=== PATIENT | female | born 1945 | race African-American/Black ===

== ENCOUNTER 2017-07-13 18:46 | Inpatient (IN) | payer MEDICARE, MEDICAID ==
[2017-07-13 20:25] LABS: Bilirubin Negative (Negative); Blood, Urine Moderate (Negative); Glucose, Urine (Dipstick) Negative (Negative); Ketone, Urine Negative (Negative); Nitrite Negative (Negative); Protein, Urine (Dipstick) Negative (Neg-Trace)
[2017-07-13 20:28] LABS: Bacteria/HPF 4+ HPF (None Seen); Hyaline Casts/LPF 0-3 HYALINE CAST LPF (0-3 Hyaline); RBC/HPF 0-3 HPF (0-3); Squamous Epithelial 0-3 HPF (0-3)
--- NOTE | 2017-07-13 20:48 | RAD ---
CHEST ONE VIEW 07/13/17 HISTORY: Chest pain. FINDINGS: The cardiac silhouette is magnified by projection. Pulmonary vasculature is upper limits of normal. M ediastinum is midline with aortic calcification. There is no lobar consolidation, or evidence of pneu mothorax. IMPRESSION: Mild pulmonary vascular congestion. POS: [facility]
[2017-07-13 21:04] LABS: #Basophils 0.1 thou/uL (0.0-0.2); #Eosinphils 0.1 thou/uL (0.0-0.7); #Lymphocytes 1.3 thou/uL (1.20-3.40); #Monocytes 1.2 thou/uL (0.11-0.59); #Neutrophils 7.4 thou/uL (1.40-6.50); %Basophils 0.6 % (0.0-1.0); %Eosinophils 1.2 % (0.0-10.0); %Lymphocytes 13.2 % (21.0-51.0); %Monocytes 11.4 % (0.0-10.0); Hematocrit 26.8 % (36.0-47.0); Mean Platelet Volume 6.5 fL (7.4-10.4); Red Blood Cell (RBC) Count 2.64 mill/uL (4.20-5.40); White Blood Cell (WBC) Count 10.1 thou/uL (4.8-10.8)
[2017-07-13 21:14] LABS: Lactic Acid - Sepsis 2.3 mmol/L (0.5-2.2); PTT 24.2 SEC (22.9-36.1); Prothrombin Time 14.3 SEC (12.0-14.7)
[2017-07-13 21:19] LABS: ALT (SGPT) 13 U/L (8-55); AST (SGOT) 26 U/L (5-34); Alkaline Phosphatase 100 U/L (40-150); Anion Gap 15 mmol/L (10-20); Bilirubin, Total 0.7 mg/dL (0.2-1.2); CK (CPK) 90 U/L (29-168); Calc. Creatinine Clearance 0 mL/min (70-130); Carbon Dioxide 28 mmol/L (23-31); Chloride 95 mmol/L (98-107); Estimated GFR-MDRD 17; Globulin 3.9 g/dL (2.4-3.5); Lipase 19 U/L (8-78); Magnesium 1.9 mg/dL (1.6-2.6); Protein, Total 6.9 g/dL (6.0-8.3)
[2017-07-13 21:23] LABS: Troponin I 0.039 ng/mL (< 0.028)
[2017-07-13 21:32] LABS: BUN (Urea Nitrogen) 156 mg/dL (9.8-20.1)
[2017-07-13] MEDS ORDERED: Naloxone HCl 2 mg/2 ml Syringe ONE (21:36)
[2017-07-13] MEDS ORDERED: Vancomycin HCl 1.5 GM in Sodium Chloride 0.9% 250 ML 300 ML IVPB SCH (23:00)
[2017-07-13] MEDS ORDERED: cefTRIAXone\\ROCEPHIN 2 GM in Sodium Chloride 0.9% 100 ML IVPB SCH (23:00)
[2017-07-13] MEDS ORDERED: Sodium Bicarb 50 MEQ/50 ML Abboject 8.4% SYRINGE ONE (23:14)
[2017-07-13] MEDS ORDERED: Dextrose 50% Abboject 50 ML SYRINGE ONE (23:14)
[2017-07-13] MEDS ORDERED: Insulin Regular 300 UNITS/3 ML VIAL ONE (23:14)
[2017-07-13 23:59] LABS: Troponin I 0.049 ng/mL (< 0.028)
[2017-07-14] MEDS ORDERED: Ondansetron HCl/PF 4 MG/2 ML Vial IVP PRN ×2 (02:09→02:22)
[2017-07-14] MEDS ORDERED: Ondansetron ODT 4 MG TAB SL PRN (02:09)
[2017-07-14] MEDS ORDERED: Sodium Chloride 0.9% 1,000 ML IV SCH ×4 (02:22→15:15)
[2017-07-14] MEDS ORDERED: cloNIDine 0.1 MG TAB PO PRN (02:22)
[2017-07-14] MEDS ORDERED: Nitroglycerin 0.4 MG TAB (25 Tab Bottle) SL PRN (02:22)
[2017-07-14] MEDS ORDERED: Benzonatate 100 MG CAP PO PRN (02:22)
[2017-07-14] MEDS ORDERED: Milk Of Magnesia 30 ML UDCUP PO PRN (02:22)
[2017-07-14] MEDS ORDERED: Diabetic Tussin 200 MG/10 ML UDCUP PO PRN (02:22)
[2017-07-14] MEDS ORDERED: hydrALAZINE 20 MG/ML VIAL SLOW IVP PRN (02:22)
[2017-07-14] MEDS ORDERED: Bisacodyl 5 MG TAB PO PRN (02:22)
[2017-07-14] MEDS ORDERED: Calcium Carbonate 500 MG ChewTAB PO PRN (02:22)
[2017-07-14] MEDS ORDERED: Bisacodyl 10 MG SUPP PR PRN (02:22)
[2017-07-14] MEDS ORDERED: Mag-Al 1200 mg/1200 mg/30 ML UDCUP PO PRN (02:22)
[2017-07-14] MEDS ORDERED: Acetaminophen 650 MG Suppository PR PRN (02:22)
[2017-07-14] MEDS ORDERED: Loratadine 10 MG TAB PO PRN (02:22)
[2017-07-14] MEDS ORDERED: Senokot 8.6 MG TAB PO PRN (02:22)
[2017-07-14] MEDS: traMADol HCl 50 MG TAB PO PRN ×3 (02:56→20:59)
[2017-07-14 02:58] LABS: Troponin I 0.036 ng/mL (< 0.028)
[2017-07-14] MEDS ORDERED: Sodium Chloride 0.9% 500 ML IVPB SCH (03:00)
[2017-07-14 05:32] LABS: #Eosinphils 0.2 thou/uL (0.0-0.7); #Neutrophils 8.6 thou/uL (1.40-6.50); %Basophils 0.4 % (0.0-1.0); %Eosinophils 1.8 % (0.0-10.0); %Lymphocytes 9.2 % (21.0-51.0); %Monocytes 8.9 % (0.0-10.0); Hematocrit 29.7 % (36.0-47.0); Mean Platelet Volume 6.6 fL (7.4-10.4); Red Blood Cell (RBC) Count 2.92 mill/uL (4.20-5.40); White Blood Cell (WBC) Count 10.8 thou/uL (4.8-10.8)
[2017-07-14 05:35] LABS: Anion Gap 22 mmol/L (10-20); Calc. Creatinine Clearance 41 mL/min (70-130); Carbon Dioxide 22 mmol/L (23-31); Chloride 102 mmol/L (98-107); Estimated GFR-MDRD 21
[2017-07-14 05:48] LABS: BUN (Urea Nitrogen) 149 mg/dL (9.8-20.1)
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
[2017-07-14] MEDS: Famotidine/PF 20 mg/2ml Vial SLOW IVP SCH ×2 (08:19→20:59)
[2017-07-14] MEDS: Heparin 5,000 UNITS/ML VIAL SC SCH ×2 (08:20→20:59)
[2017-07-14] MEDS ORDERED: Vancomycin HCl 1.5 GM, Admixture Fee 1 EACH in Sodium Chloride 0.9% 250 ML 300 ML IVPB SCH (08:30)
[2017-07-14] MEDS ORDERED: Piperacillin/Tazobactam 3.375 GM, Admixture Fee 1 EACH in Sodium Chloride 0.9% 100 ML IVPB SCH (12:00)
--- NOTE | 2017-07-14 13:35 | PDOC.PN ---
- Subjective Encounter Start Date: 07/14/17 Encounter Start Time: 13:33 more alert no n/v has low bp no f/c - Objective Resuscitation Status: Resuscitation Status DNR:Do Not Resuscitate MAR Reviewed: Yes Vital Signs & Weight: Vital Signs (12 hours) Temp Pulse Resp BP Pulse Ox 07/14/17 12:14 100.1 F H 88 18 97 07/14/17 11:00 100.1 F H 88 18 94/44 L 96 07/14/17 08:20 99.3 F 102 H 20 92 L 07/14/17 07:16 99.3 F 102 H 20 103/73 99 07/14/17 03:44 98.3 F 91 20 89/50 L 98 07/14/17 01:37 98.3 F 82 22 H 100 Weight Admit Weight 299 lb Weight 299 lb Most Recent Monitor Data Heart Rate from ECG 86 I&O: 07/13/17 07/14/17 07/15/17 06:59 06:59 06:59 Intake Total 350 Output Total 0 1150 Balance 350 -1150 Result Diagrams: 07/14/17 04:44 07/14/17 02:27 Additional Labs: Accuchecks 07/13/17 23:23 POC Glucose 114 H Phys Exam - Physical Examination Constitutional: NAD HEENT: PERRLA Neck: no JVD Respiratory: no wheezing Cardiovascular: no significant murmur Gastrointestinal: no distention Musculoskeletal: pulses present Neurological: normal sensation Psychiatric: A&O x 3 Deviation from normal: excoriations noted. Dx/Plan (1) Sepsis Code(s): A41.9 - SEPSIS, UNSPECIFIED ORGANISM Status: Acute (2) UTI (urinary tract infection) Status: Acute (3) Decubital ulcer Code(s): L89.90 - PRESSURE ULCER OF UNSPECIFIED SITE, UNSPECIFIED STAGE Status : Acute (4) History of CVA with residual deficit Code(s): I69.30 - UNSPECIFIED SEQUELAE OF CEREBRAL INFARCTION Status: Chronic (5) Morbid obesity with BMI of 50.0-59.9, adult Code(s): E66.01 - MORBID (SEVERE) OBESITY DUE TO EXCESS CALORIES; Z68.43 - BODY MASS INDEX (BMI) 50-59.9 , ADULT Status: Chronic - Plan * consult dr montanez * cont abx * wound care * ivf * transfer to [facility] * dnr * recently revoked hospice
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
[2017-07-14] MEDS: Sodium Chloride 0.45% 1,000 ML IV SCH (16:38)
[2017-07-14 16:44] LABS: Lactic Acid - Sepsis 0.9 mmol/L (0.5-2.2)
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
[2017-07-14] MEDS ORDERED: cefTRIAXone\\ROCEPHIN 1 GM in Syringe 10 ML IVPB SCH (23:00)
--- NOTE | 2017-07-14 23:54 | CON ---
DATE OF CONSULTATION: 07/14/2017 CONSULTING PHYSICIAN: Darryl Boo M.D. REQUESTING PHYSICIAN: Jeanette Vargas MD REASON FOR CONSULTATION: Acute kidney injury. IMPRESSION: 1. Acute kidney injury. This is likely hemodynamically mediated in the context of poor p.o. intake while continuing the use of YOLI inhibitor as well as diuretics. This acute kidney injury is likely c ompounded by cytokine-mediated injury in the context of possible bacteremia/sepsis. 2. Hyperkalemia. This is likely due to reduced GFR in the face of continued use of YOLI inhibitor. PLAN: 1. Intravascular repletion with IV fluids. 2. Hopefully, the improvement in the renal, but the patient will help to address the hyperkalemia. 3. Renally dose all medications per low GFR and avoid potentially nephrotoxic agents. 4. No emergent indication for dialytic intervention. However, should this progress to full blown ac phyllis tubular necrosis, this modality of treatment might be considered. The patient seems not to be a great candidate. 5. Further management will to be dependent on the clinical course. HISTORY OF PRESENT ILLNESS: History is that of a 72-year-old female patient who has had recurrent ac phyllis kidney injury in the past, every time hemodynamically mediated. The patient represented here wit h elevated creatinine above 3 when patient's baseline creatinine is about 1. The patient also noted with hyperkalemia and labile hemodynamics. The patient has not eaten anything at all the day before presentation. As a result of the deteriorating renal function, decision has been taken to involve Re nal in the management of this case. PAST MEDICAL HISTORY: Significant for recurrent acute kidney injury, CVA with right-sided weakness, atrial fibrillation, hepatitis C, congestive heart failure, morbid obesity, chronic respiratory failu re, obstructive sleep apnea, history of COPD. MEDICATIONS: Reviewed as documented on [employer]. ALLERGIES: No known drug allergies. FAMILY HISTORY: None significantly related to the presenting illness. SOCIAL HISTORY: The patient lives at home. Denies alcohol, tobacco or illicit drug use. REVIEW OF SYSTEMS: As documented in the body of the history. The other systems reviewed were found not to be significantly related to the presenting illness. PHYSICAL EXAMINATION: GENERAL: The patient was found to be ill-looking, noted with the following vital signs. VITAL SIGNS: Blood pressure 104/64, which was down to 94/62, saturations on 96%. HEENT: Unremarkable. CARDIOVASCULAR SYSTEM: First and second heart sounds were heard. RESPIRATORY SYSTEM: Clear to auscultation anteriorly. DIGESTIVE SYSTEM: Revealed an obese abdomen. EXTREMITIES: Showed no peripheral edema. SKIN: Shows some multiple decubitus ulcers as well as rashes. NEUROLOGIC: Alert, no new lateralizing signs. LYMPHATICS: No peripheral lymphadenopathy. SUMMARY: A 72-year-old female patient who presented here with acute kidney injury likely in the cont ext of hemodynamically mediated injury as well as cytokine-mediated injury. Thank you for this consultation. We will follow with you.
[2017-07-15] MEDS: Sodium Chloride 0.45% 1,000 ML IV SCH ×2 (00:47→12:35)
[2017-07-15 04:14] LABS: Anion Gap 11 mmol/L (10-20); BUN (Urea Nitrogen) 95 mg/dL (9.8-20.1); Calc. Creatinine Clearance 78 mL/min (70-130); Carbon Dioxide 29 mmol/L (23-31); Chloride 107 mmol/L (98-107); Estimated GFR-MDRD 44
[2017-07-15] MEDS: Famotidine/PF 20 mg/2ml Vial SLOW IVP SCH ×2 (08:46→09:16)
[2017-07-15] MEDS: Heparin 5,000 UNITS/ML VIAL SC SCH ×2 (08:46→20:54)
[2017-07-15] MEDS ORDERED: Vancomycin HCl 1.5 GM in Sodium Chloride 0.9% 250 ML 300 ML IVPB SCH (09:00)
[2017-07-15 11:37] VITALS: BMI 55.0
--- NOTE | 2017-07-15 12:53 | PDOC.PN ---
- Subjective Encounter Start Date: 07/15/17 Encounter Start Time: 12:50 doing much better no n/v no f/c speech rec's- liq diet - Objective Resuscitation Status: Resuscitation Status DNR:Do Not Resuscitate MAR Reviewed: Yes Vital Signs & Weight: Vital Signs (12 hours) Temp Pulse Resp Pulse Ox 07/15/17 12:00 99.0 F 07/15/17 08:00 99.3 F 96 17 100 07/15/17 04:00 98.2 F Weight Admit Weight 299 lb Weight 301 lb 1.6 oz Most Recent Monitor Data Heart Rate from ECG 103 NIBP 105/47 NIBP BP-Mean 71 Respiration from ECG 19 SpO2 100 I&O: 07/14/17 07/15/17 07/16/17 06:59 06:59 06:59 Intake Total 350 3436 1440 Output Total 0 3370 Balance 149 79 6054 Result Diagrams: 07/14/17 04:44 07/15/17 03:30 Phys Exam - Physical Examination Constitutional: NAD HEENT: PERRLA Neck: no JVD Respiratory: no wheezing Cardiovascular: no significant murmur Gastrointestinal: non-tender Musculoskeletal: pulses present Neurological: normal sensation Psychiatric: A&O x 3 Deviation from normal: excoriations noted, decubitus ulcer noted Dx/Plan (1) Sepsis Code(s): A41.9 - SEPSIS, UNSPECIFIED ORGANISM Status: Acute (2) UTI (urinary tract infection) Status: Acute (3) Decubital ulcer Code(s): L89.90 - PRESSURE ULCER OF UNSPECIFIED SITE, UNSPECIFIED STAGE Status : Acute (4) History of CVA with residual deficit Code(s): I69.30 - UNSPECIFIED SEQUELAE OF CEREBRAL INFARCTION Status: Chronic (5) Morbid obesity with BMI of 50.0-59.9, adult Code(s): E66.01 - MORBID (SEVERE) OBESITY DUE TO EXCESS CALORIES; Z68.43 - BODY MASS INDEX (BMI) 50-59.9 , ADULT Status: Chronic - Plan * lactic acidosis resolved * bld culture- enterococcus * uti- gnr * cont abx * id, pulm rec's appreciated
[2017-07-15] MEDS: traMADol HCl 50 MG TAB PO PRN ×2 (13:25→20:53)
[2017-07-15] MEDS: Piperacillin/Tazobactam 2.25 GM, Admixture Fee 1 EACH in Sodium Chloride 0.9% 100 ML IVPB SCH ×2 (14:28→20:52)
[2017-07-15] MEDS ORDERED: Sodium Chloride 0.45% 1,000 ML IV SCH (15:15)
--- NOTE | 2017-07-15 15:25 | PRG ---
DATE OF SERVICE: 07/15/2017 SERVICE: Pulmonary Medicine. INTERVAL HISTORY: The patient is doing fine from a respiratory standpoint. She is on room air. She has no specific complaints of difficulty breathing or chest discomfort. She has requirements for [facility]. Otherwise, there has been no interval change to her condition. PHYSICAL EXAMINATION: VITAL SIGNS: Afebrile with T-max of 99.3 over the past 24 hours. Pulse 105, blood pressure 141/52, respirations 21, and saturation 99% on room air. GENERAL: The patient is awake and alert, in no apparent distress. LUNGS: Excellent air entry. There is no prolonged expiratory phase. I do not appreciate no wheezin g. HEART: Normal rate and regular. ABDOMEN: Soft, nontender, nondistended, bowel sounds positive. MUSCULOSKELETAL: No cyanosis or clubbing. No pitting in the bilateral lower extremities. NEUROLOGIC: Grossly nonfocal. LABORATORY DATA: Creatinine has improved to 1.49. Basic metabolic profile is otherwise unremarkable . Her BUN has dramatically improved to 95. One out of two blood cultures growing Enterococcus faeca lis. Urine culture is growing a gram negative isabel. ASSESSMENT: 1. Acute kidney injury secondary to severe dehydration. 2. Metabolic encephalopathy, resolved. 3. Dehydration, severe. 4. Diarrhea. 5. Severe sepsis. 6. Urinary tract infection. 7. Bacteremia. PLAN: We will continue empiric antibiotics and maintenance IV fluids. I think she remains a little bit volume depleted. She is having frequent bowel movements. We will collect the sample and sent it for C. diff. From my perspective, she is stable for transition out of the ICU, but because of her [facility] nursing requirements, she will likely do best in the IMCU.
--- NOTE | 2017-07-15 23:52 | PRG ---
DATE OF SERVICE: 07/15/2017 SUBJECTIVE: The patient is seen and examined today, seems to be in some physical distress, noted wit h the following vital signs. OBJECTIVE: VITAL SIGNS: Afebrile with pulse of 105, blood pressure , respiratory rate 18, O2 saturation 98 %. HEENT: Unremarkable with moist oral mucosa. Neck is supple. No conjunctival injection or icterus. CARDIOVASCULAR: First and second heart sounds were heard. RESPIRATORY: Clear to auscultation. DIGESTIVE: Revealed an obese abdomen. EXTREMITIES: No peripheral edema. NEUROLOGIC: Alert and oriented. No lateralizing signs. LYMPHATICS: No peripheral lymphadenopathy. LABORATORY INVESTIGATIONS: Showed a creatinine down to 1.4. IMPRESSION: 1. Acute kidney injury which seems to have responded to fluid resuscitation. 2. Urinary tract infection. 3. Possible sepsis. PLAN: 1. The patient seems to have been intravascularly replete. Therefore, I would discontinue IV fluid infusion. 2. Continue p.o. intake. 3. Continue to renally dose all medications and avoid potentially nephrotoxic agents. 4. Further management to be dependent on the clinical course.
[2017-07-16] MEDS: Piperacillin/Tazobactam 2.25 GM, Admixture Fee 1 EACH in Sodium Chloride 0.9% 100 ML IVPB SCH ×4 (02:08→21:20)
[2017-07-16] MEDS: traMADol HCl 50 MG TAB PO PRN ×4 (04:19→22:59)
[2017-07-16 04:41] LABS: Anion Gap 12 mmol/L (10-20); BUN (Urea Nitrogen) 52 mg/dL (9.8-20.1); Calc. Creatinine Clearance 86 mL/min (70-130); Calcium 8.8 mg/dL (7.8-10.44); Carbon Dioxide 27 mmol/L (23-31); Chloride 109 mmol/L (98-107); Estimated GFR-MDRD 49
[2017-07-16] MEDS: Famotidine/PF 20 mg/2ml Vial SLOW IVP SCH (08:55)
[2017-07-16] MEDS: Heparin 5,000 UNITS/ML VIAL SC SCH ×2 (08:58→21:32)
--- NOTE | 2017-07-16 14:10 | PDOC.PN ---
- Subjective Encounter Start Date: 07/16/17 Encounter Start Time: 14:07 Ms. Araiza was seen today in follow-up for her admitting diagnoses, including encephalopathy. She is upset, and agitated, and wants to go home. She is so focused on getting repositioned in the bed, and moved to another room, closer to the nursing station, because she feels isolated, that she is unable to answer any questions pertaining to how she feels clinically. - Objective Resuscitation Status: Resuscitation Status DNR:Do Not Resuscitate MAR Reviewed: Yes Vital Signs & Weight: Vital Signs (12 hours) Temp Pulse Resp BP Pulse Ox 07/16/17 08:15 98.3 F 97 18 122/80 95 07/16/17 08:14 95 07/16/17 08:00 98.3 F 97 18 07/16/17 04:00 97.6 F 100 18 113/68 96 Weight Admit Weight 299 lb Weight 301 lb 1.6 oz Most Recent Monitor Data Heart Rate from ECG 116 NIBP 134/84 NIBP BP-Mean 100 Respiration from ECG 17 SpO2 99 I&O: 07/15/17 07/16/17 07/17/17 06:59 06:59 06:59 Intake Total 3436 3175 Output Total 3370 2200 Balance 66 975 Result Diagrams: 07/14/17 04:44 07/16/17 03:43 Phys Exam - Physical Examination HEENT: PERRLA Respiratory: no wheezing, no rales, no rhonchi, clear to auscultation bilateral Cardiovascular: RRR, no significant murmur Gastrointestinal: soft, non-tender, positive bowel sounds Musculoskeletal: no edema + chronic venous stasis changes wound photos noted- excoriations on the buttocks Dx/Plan (1) Toxic metabolic encephalopathy Code(s): G92 - TOXIC ENCEPHALOPATHY Status: Acute (2) Decubital ulcer Code(s): L89.90 - PRESSURE ULCER OF UNSPECIFIED SITE, UNSPECIFIED STAGE Status : Acute (3) Sepsis Code(s): A41.9 - SEPSIS, UNSPECIFIED ORGANISM Status: Acute (4) UTI (urinary tract infection) Status: Acute (5) COPD (chronic obstructive pulmonary disease) Status: Acute Qualifiers: COPD type: COPD with acute exacerbation Qualified Code(s): J44.1 - Chronic obstructive pulmonary disease with (acute) exacerbation (6) Obesity (BMI 30.0-34.9) Code(s): E66.9 - OBESITY, UNSPECIFIED Status: Acute (7) Afib Code(s): I48.91 - UNSPECIFIED ATRIAL FIBRILLATION Status: Chronic Qualifiers: Atrial fibrillation type: chronic Qualified Code(s): I48.2 - Chronic atrial fibrillation - Plan * Toxic Metabolic encephalopathy from opiod overuse- resolved * Acute on chronic kidney injury- improved with hydration, fluids are still running. * Will re-check the serum creatinine in the AM * Patient has multiple cultures positive, including a urine culture with gram negative rods with >100,000 CFU, Blood cultures are positive for Enterococcus, and Coag negative Staph, and cultures from the buttocks are growing MRSA- will continue Zosyn for now, and await further recommendations pre ID * AFIB- heart rate is stable * Decubitus- continue local wound care * Consult Case Management for safe discharge disposition
[2017-07-16] MEDS: Acetaminophen 325 MG TAB PO PRN ×3 (14:29→22:59)
[2017-07-16] MEDS: Lorazepam 0.5 MG TAB PO SCH ×2 (14:30→22:59)
--- NOTE | 2017-07-16 16:25 | PDOC.EVN ---
Event Note - Event Note Event Note: Patient has lost IV access- will give Augmentin in place of Zosyn this evening, and have PICC line placed tomorrow
--- NOTE | 2017-07-16 17:40 | PRG ---
DATE OF SERVICE: 07/16/2017 SUBJECTIVE: This morning, she is still encephalopathic, but somewhat better. She is eager to go [facility]. It appears that her diarrhea has improved. OBJECTIVE: VITAL SIGNS: Blood pressure 120/80, sats on 95% on 2 liters and temperature is 98. CHEST: Decreased breath sounds. No wheezing. CARDIAC: Normal S1 and S2. ABDOMEN: Soft. No masses. LABORATORY DATA: Creatinine 1.29, BUN 52. is growing Enterococcus faecalis. IMPRESSION: Gram-negative sepsis, on Zosyn. Dehydration and azotemia. PLAN: She is apparently improved, although she still encephalopathic. Continue PT and supportive ca re. Hopefully, can be discharged home in the next several days.
[2017-07-16] MEDS: Amoxicillin/Potassium Clav 600 mg/5 ml Oral Suspension PO SCH (21:32)
--- NOTE | 2017-07-16 23:47 | PRG ---
DATE OF SERVICE: 07/16/2017 SUBJECTIVE: Patient was noted with the following. OBJECTIVE: VITAL SIGNS: Afebrile with a temperature of 98.3, pulse 97, respiratory rate of 18, O2 sat 95% on 3L , blood pressure 122/80-98/48. HEENT: Unremarkable. CARDIOVASCULAR SYSTEM: First and second heart sounds were heard. RESPIRATORY SYSTEM: Clear to auscultation anteriorly. DIGESTIVE SYSTEM: Revealed an obese abdomen. EXTREMITIES: No rales. No peripheral edema. NEUROLOGIC: The patient is alert and oriented. IMPRESSION: 1. Acute on chronic kidney disease, which seems to be responding to conservative resuscitative treat ment. 2. Morbid obesity. 3. Urinary tract infections/possible sepsis. PLAN: 1. Continue current renal supportive measures. 2. We will continue to renally dose all medications per low GFR. 3. Avoid potentially nephrotoxic agents. 4. Further management will be dependent on the clinical course.
[2017-07-17] MEDS: Piperacillin/Tazobactam 2.25 GM, Admixture Fee 1 EACH in Sodium Chloride 0.9% 100 ML IVPB SCH ×5 (03:39→20:00)
[2017-07-17] MEDS: Acetaminophen 325 MG TAB PO PRN ×2 (05:35→21:27)
[2017-07-17] MEDS: Lorazepam 0.5 MG TAB PO SCH ×3 (05:35→21:28)
[2017-07-17] MEDS: traMADol HCl 50 MG TAB PO PRN ×3 (05:35→21:28)
[2017-07-17 06:04] LABS: Chloride 108 mmol/L (98-107)
[2017-07-17 06:05] LABS: Calcium 8.7 mg/dL (7.8-10.44)
[2017-07-17 06:07] LABS: Anion Gap 12 mmol/L (10-20); Carbon Dioxide 25 mmol/L (23-31)
[2017-07-17 06:09] LABS: Calc. Creatinine Clearance 73 mL/min (70-130); Estimated GFR-MDRD 41
[2017-07-17 06:10] LABS: BUN (Urea Nitrogen) 44 mg/dL (9.8-20.1)
[2017-07-17] MEDS: Amoxicillin/Potassium Clav 600 mg/5 ml Oral Suspension PO SCH ×2 (08:06→21:27)
[2017-07-17] MEDS: Famotidine/PF 20 mg/2ml Vial SLOW IVP SCH (08:08)
[2017-07-17] MEDS: Heparin 5,000 UNITS/ML VIAL SC SCH ×2 (09:31→21:30)
--- NOTE | 2017-07-17 14:05 | PRG ---
DATE OF SERVICE: 07/17/2017 SUBJECTIVE: She is better. She is less short of breath. OBJECTIVE: VITAL SIGNS: Blood pressure is 109/69, sats are 95% on 2 liters, respirations 24, temperature 98. CHEST: Bilateral rhonchi. CARDIAC: Normal S1 and S2. No gallops. ABDOMEN: Soft. No masses. LABORATORY DATA: Creatinine 1.5. Urine has got E. coli. IMPRESSION: Urinary tract infection, hepatitis C, obesity, renal failure, respiratory failure, cereb rovascular accident and severe deconditioning. PLAN: P.o. antibiotics and supportive care. DISPOSITION: As per primary care physician.
--- NOTE | 2017-07-17 15:37 | PDOC.PN ---
- Subjective Encounter Start Date: 07/17/17 Encounter Start Time: 15:36 Ms. Araiza was seen today in follow-up of acute renal failure and decubitus ulcers. She does not have any complaints today, other than some pain in her shoulders. - Objective Resuscitation Status: Resuscitation Status DNR:Do Not Resuscitate MAR Reviewed: Yes Vital Signs & Weight: Vital Signs (12 hours) Temp Pulse Resp BP Pulse Ox 07/17/17 08:00 98.2 F 91 24 H 109/69 96 Weight Admit Weight 299 lb Weight 301 lb 1.6 oz Most Recent Monitor Data Heart Rate from ECG 116 NIBP 134/84 NIBP BP-Mean 100 Respiration from ECG 17 SpO2 99 I&O: 07/16/17 07/17/17 07/18/17 06:59 06:59 06:59 Intake Total 3175 720 480 Output Total 2200 700 Balance 975 20 480 Result Diagrams: 07/14/17 04:44 07/17/17 05:47 Phys Exam - Physical Examination HEENT: PERRLA Respiratory: no wheezing, no rales, no rhonchi, clear to auscultation bilateral Cardiovascular: RRR, no significant murmur Gastrointestinal: soft, non-tender, positive bowel sounds Musculoskeletal: edema present + chronic venous stasis changed Neurological: non-focal Dx/Plan (1) Toxic metabolic encephalopathy Code(s): G92 - TOXIC ENCEPHALOPATHY Status: Acute (2) Decubital ulcer Code(s): L89.90 - PRESSURE ULCER OF UNSPECIFIED SITE, UNSPECIFIED STAGE Status : Acute (3) Sepsis Code(s): A41.9 - SEPSIS, UNSPECIFIED ORGANISM Status: Acute (4) UTI (urinary tract infection) Status: Acute (5) COPD (chronic obstructive pulmonary disease) Status: Acute Qualifiers: COPD type: COPD with acute exacerbation Qualified Code(s): J44.1 - Chronic obstructive pulmonary disease with (acute) exacerbation (6) Obesity (BMI 30.0-34.9) Code(s): E66.9 - OBESITY, UNSPECIFIED Status: Acute (7) Afib Code(s): I48.91 - UNSPECIFIED ATRIAL FIBRILLATION Status: Chronic Qualifiers: Atrial fibrillation type: chronic Qualified Code(s): I48.2 - Chronic atrial fibrillation - Plan * Toxic Metabolic encephalopathy from overuse of opiod pain medication- resolved * UTI- urine culture is positive for E. Coli and Proteus- sensitive to Augmentin * Decubitus- continue local wound care * AFIB- her heart rate is stable * Acute renal failure- continues to improve * Ms. Araiza says she is now [facility] I clarified and asked her if she means a [facility], and she nodded her head. Will notify case management tomorrow, so we can screen for placement * COPD- stable * GAIL- stable * She is still without IV access- will discuss with Dr. Kelly if she will need continued IV antibiotics, or if they can remain oral.
[2017-07-18] MEDS: Piperacillin/Tazobactam 2.25 GM, Admixture Fee 1 EACH in Sodium Chloride 0.9% 100 ML IVPB SCH ×2 (02:30→07:42)
[2017-07-18 05:50] LABS: Anion Gap 17 mmol/L (10-20); BUN (Urea Nitrogen) 44 mg/dL (9.8-20.1); Calc. Creatinine Clearance 66 mL/min (70-130); Calcium 8.7 mg/dL (7.8-10.44); Carbon Dioxide 20 mmol/L (23-31); Chloride 108 mmol/L (98-107); Estimated GFR-MDRD 36
[2017-07-18] MEDS: traMADol HCl 50 MG TAB PO PRN ×2 (06:10→23:56)
[2017-07-18] MEDS: Acetaminophen 325 MG TAB PO PRN (06:10)
[2017-07-18] MEDS: Lorazepam 0.5 MG TAB PO SCH ×3 (06:11→20:48)
[2017-07-18] MEDS: Famotidine/PF 20 mg/2ml Vial SLOW IVP SCH (07:43)
[2017-07-18] MEDS: Amoxicillin/Potassium Clav 600 mg/5 ml Oral Suspension PO SCH ×2 (07:54→20:30)
[2017-07-18] MEDS: Heparin 5,000 UNITS/ML VIAL SC SCH ×2 (07:54→20:32)
[2017-07-18 09:12] LABS: Prothrombin Time 13.5 SEC (12.0-14.7)
[2017-07-18] MEDS: diphenhydrAMINE 25 MG CAP PO PRN (11:26)
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
--- NOTE | 2017-07-18 12:43 | PDOC.PN ---
- Subjective Encounter Start Date: 07/18/17 Encounter Start Time: 12:41 Ms. Araiza was seen today in follow-up. She says she hasn't had a bowel movement in 7 days- but her nurse says she had one yesterday. She is also complaining of some itching on the left shoulder. She also wants to be discharged to the [facility]. - Objective Resuscitation Status: Resuscitation Status DNR:Do Not Resuscitate MAR Reviewed: Yes Vital Signs & Weight: Vital Signs (12 hours) Temp Pulse Resp BP Pulse Ox 07/18/17 08:00 98.1 F 91 22 H 120/64 95 Weight Admit Weight 299 lb Weight 301 lb 1.6 oz Most Recent Monitor Data Heart Rate from ECG 116 NIBP 134/84 NIBP BP-Mean 100 Respiration from ECG 17 SpO2 99 I&O: 07/17/17 07/18/17 07/19/17 06:59 06:59 06:59 Intake Total 720 1320 240 Output Total 700 1300 Balance 20 20 240 Result Diagrams: 07/14/17 04:44 07/18/17 04:39 Phys Exam - Physical Examination HEENT: PERRLA Respiratory: no wheezing, no rales, no rhonchi Cardiovascular: RRR, no significant murmur, no rub Gastrointestinal: soft, non-tender, positive bowel sounds + hyperpigmented, thickened round area on the left shoulder + lower extremity edema Dx/Plan (1) Toxic metabolic encephalopathy Code(s): G92 - TOXIC ENCEPHALOPATHY Status: Acute (2) Decubital ulcer Code(s): L89.90 - PRESSURE ULCER OF UNSPECIFIED SITE, UNSPECIFIED STAGE Status : Acute (3) Sepsis Code(s): A41.9 - SEPSIS, UNSPECIFIED ORGANISM Status: Acute (4) UTI (urinary tract infection) Status: Acute (5) COPD (chronic obstructive pulmonary disease) Status: Acute Qualifiers: COPD type: COPD with acute exacerbation Qualified Code(s): J44.1 - Chronic obstructive pulmonary disease with (acute) exacerbation (6) Obesity (BMI 30.0-34.9) Code(s): E66.9 - OBESITY, UNSPECIFIED Status: Acute (7) Afib Code(s): I48.91 - UNSPECIFIED ATRIAL FIBRILLATION Status: Chronic Qualifiers: Atrial fibrillation type: chronic Qualified Code(s): I48.2 - Chronic atrial fibrillation - Plan * Dermatitis on left shoulder- Hydrocortisone cream * Acute renal failure- resolved * UTI- this can be covered with Augmentin, as well as the decubitus on the buttocks * Can therefore cancel PICC line placement * Acute renal failure- improved- but creatinine is slightly higher- continue to monitor, and encourage oral intake * Discharge planning is in progress.
--- NOTE | 2017-07-18 13:32 | PRG ---
DATE OF SERVICE:: 07/18/2017 SERVICE: Pulmonary Medicine. INTERVAL HISTORY: The patient is doing really well from a respiratory standpoint. She has been wean ed down to 2 liters nasal cannula, which is her home dose. She denies any current shortness breath, chest pain, fevers, chills, nausea or vomiting. Her encephalopathy has essentially resolved to basel ine. Otherwise, she is returning to her usual state of health. PHYSICAL EXAMINATION: VITAL SIGNS: Afebrile, pulse 91, blood pressure 120/64, respirations 22, saturation 96% on 2 liters nasal cannula. GENERAL: Patient is awake, alert, in no apparent distress. LUNGS: Excellent air entry with prolonged expiratory phase wheezing, rhonchi or crackles. HEART: Normal rate, regular. ABDOMEN: Soft, nontender, nondistended. Bowel sounds positive. MUSCULOSKELETAL: No cyanosis or clubbing. There is no pitting in the bilateral lower extremities. NEUROLOGIC: Grossly nonfocal. LABORATORY DATA: Creatinine 1.68. Basic metabolic profile is otherwise unremarkable. Potassium 5.1 . ASSESSMENT: 1. Acute on chronic hypoxic respiratory failure. 2. Acute kidney injury. 3. Metabolic encephalopathy, resolved. 4. Dehydration, severe. 5. Urinary tract infection. 6. Severe sepsis. 7. Bacteremia. PLAN: The patient has essentially returned back to baseline. She is on 2 liters nasal cannula, whic h is her home dose of oxygen. At this point, she has no further requirements for inpatient Pulmonary or Critical Care opinion. As such, I will sign off. Please call with additional questions, moving forward.
[2017-07-18] MEDS: Hydrocortisone 1% Cream 1.5 GM Packet TOP SCH (20:30)
[2017-07-19] MEDS: traMADol HCl 50 MG TAB PO PRN ×2 (03:38→10:23)
[2017-07-19] MEDS: diphenhydrAMINE 25 MG CAP PO PRN (03:38)
[2017-07-19] MEDS: Lorazepam 0.5 MG TAB PO SCH ×2 (05:17→15:05)
[2017-07-19 05:39] LABS: Anion Gap 13 mmol/L (10-20); BUN (Urea Nitrogen) 43 mg/dL (9.8-20.1); Calc. Creatinine Clearance 66 mL/min (70-130); Calcium 8.6 mg/dL (7.8-10.44); Carbon Dioxide 24 mmol/L (23-31); Chloride 108 mmol/L (98-107); Estimated GFR-MDRD 36
[2017-07-19] MEDS: Heparin 5,000 UNITS/ML VIAL SC SCH (08:07)
[2017-07-19] MEDS: Famotidine/PF 20 mg/2ml Vial SLOW IVP SCH (08:08)
[2017-07-19] MEDS: Hydrocortisone 1% Cream 1.5 GM Packet TOP SCH (08:08)
[2017-07-19] MEDS: Acetaminophen 325 MG TAB PO PRN (10:24)
[2017-07-19] MEDS: Amoxicillin/Potassium Clav 600 mg/5 ml Oral Suspension PO SCH (12:08)
--- NOTE | 2017-07-19 13:19 | PDOC.PN ---
- Subjective Encounter Start Date: 07/19/17 Encounter Start Time: 10:00 -: old records requested/rev Patient seen and examined. No new complaints. No overnight events - Objective Resuscitation Status: Resuscitation Status DNR:Do Not Resuscitate MAR Reviewed: Yes Vital Signs & Weight: Vital Signs (12 hours) Temp Pulse Resp BP Pulse Ox 07/19/17 12:26 98.3 F 103 H 20 126/70 99 07/19/17 07:28 98.9 F 109 H 20 105/68 98 Weight Admit Weight 299 lb Weight 301 lb 1.6 oz Most Recent Monitor Data Heart Rate from ECG 116 NIBP 134/84 NIBP BP-Mean 100 Respiration from ECG 17 SpO2 99 I&O: 07/18/17 07/19/17 07/20/17 06:59 06:59 06:59 Intake Total 1320 720 Output Total 1300 1100 Balance 20 -380 Result Diagrams: 07/14/17 04:44 07/19/17 04:56 Phys Exam - Physical Examination Constitutional: NAD HEENT: PERRLA, moist MMs, sclera anicteric Neck: no JVD, supple Respiratory: no wheezing, no rales, no rhonchi Cardiovascular: RRR, no significant murmur, no rub Gastrointestinal: soft, non-tender, no distention, positive bowel sounds Musculoskeletal: pulses present, edema present Neurological: moves all 4 limbs Lymphatic: no nodes Psychiatric: normal affect Skin: no rash, normal turgor Dx/Plan (1) Bacteremia Code(s): R78.81 - BACTEREMIA Status: Acute (2) Decubital ulcer Code(s): L89.90 - PRESSURE ULCER OF UNSPECIFIED SITE, UNSPECIFIED STAGE Status : Acute (3) Sepsis Code(s): A41.9 - SEPSIS, UNSPECIFIED ORGANISM Status: Acute (4) Sepsis affecting skin Code(s): L02.91 - CUTANEOUS ABSCESS, UNSPECIFIED Status: Acute (5) Toxic metabolic encephalopathy Code(s): G92 - TOXIC ENCEPHALOPATHY Status: Acute (6) UTI (urinary tract infection) Status: Acute (7) Afib Code(s): I48.91 - UNSPECIFIED ATRIAL FIBRILLATION Status: Chronic Qualifiers: Atrial fibrillation type: chronic Qualified Code(s): I48.2 - Chronic atrial fibrillation (8) Back pain Code(s): M54.9 - DORSALGIA, UNSPECIFIED Status: Chronic (9) COPD (chronic obstructive pulmonary disease) Status: Chronic Qualifiers: COPD type: COPD with acute exacerbation Qualified Code(s): J44.1 - Chronic obstructive pulmonary disease with (acute) exacerbation (10) Chronic respiratory failure with hypoxia and hypercapnia Code(s): J96.11 - CHRONIC RESPIRATORY FAILURE WITH HYPOXIA; J96.12 - CHRONIC RESPIRATORY FAILURE WITH HYPERCAPNIA Status: Chronic (11) Diastolic dysfunction Code(s): I51.9 - HEART DISEASE, UNSPECIFIED Status: Chronic (12) Hepatitis C Code(s): B19.20 - UNSPECIFIED VIRAL HEPATITIS C WITHOUT HEPATIC COMA Status: Chronic Qualifiers: Viral hepatitis chronicity: chronic Hepatic coma status: without hepatic coma Qualified Code(s): B18.2 - Chronic viral hepatitis C (13) History of CVA with residual deficit Code(s): I69.30 - UNSPECIFIED SEQUELAE OF CEREBRAL INFARCTION Status: Chronic (14) Macrocytic anemia Code(s): D53.9 - NUTRITIONAL ANEMIA, UNSPECIFIED Status: Chronic (15) Morbid obesity with BMI of 50.0-59.9, adult Code(s): E66.01 - MORBID (SEVERE) OBESITY DUE TO EXCESS CALORIES; Z68.43 - BODY MASS INDEX (BMI) 50-59.9 , ADULT Status: Chronic (16) GAIL (obstructive sleep apnea) Code(s): G47.33 - OBSTRUCTIVE SLEEP APNEA (ADULT) (PEDIATRIC) Status: Chronic - Plan cont current plan of care, de la cruz catheter, continue antibiotics, PT/OT, bilingual social worker * continue augmentin * will need placement * medication reviewed as below * symptomatic treatment * wound care * prognosis is very poor * will discharge when placement arranged * high risk for readmission. Review of Systems - Review of Systems Other: not reliable due to dementia - Medications/Allergies Allergies/Adverse Reactions: Allergies Allergy/AdvReac Type Severity Reaction Status Date / Time No Known Allergies Allergy Verified 07/14/17 02:25 Medications: Current Medications Acetaminophen (Tylenol) 650 mg ID Q4H PRN PRN Reason: Headache/Fever or Pain Acetaminophen (Tylenol) 650 mg PO Q4H PRN PRN Reason: Headache/Fever or Pain Last Admin: 07/19/17 10:24 Dose: 650 mg Al Hydroxide/Mg Hydroxide (Maalox) 30 ml PO Q6H PRN PRN Reason: Heartburn or Indigestion Albuterol/Ipratropium (Duoneb) 3 ml NEB Q6H PRN PRN Reason: SOB &/or Wheezing Amoxicillin/Clavulanate Potassium (Augmentin 600mg/5ml Oral Susp) 600 mg PO BID [facility] Last Admin: 07/19/17 12:08 Dose: 600 mg Bisacodyl (Dulcolax) 10 mg PO DAILYPRN PRN PRN Reason: Constipation Bisacodyl (Dulcolax) 10 mg ID Q24H PRN PRN Reason: Constipation Calcium Carbonate (Tums) 1,000 mg PO Q4H PRN PRN Reason: Heartburn or Indigestion Clonidine (Catapres) 0.1 mg PO Q4H PRN PRN Reason: Systolic BP > 160 Diphenhydramine HCl (Benadryl) 25 mg PO Q6H PRN PRN Reason: Itching & Insomnia Last Admin: 07/19/17 03:38 Dose: 25 mg Famotidine (Pepcid) 20 mg SLOW IVP 0900 [facility] Last Admin: 07/19/17 08:08 Dose: Not Given Guaifenesin (Robitussin Sf) 200 mg PO Q4H PRN PRN Reason: Cough Heparin Sodium (Porcine) (Heparin) 5,000 units SC BID [facility] Last Admin: 07/19/17 08:07 Dose: 5,000 units Hydralazine HCl (Apresoline) 10 mg SLOW IVP Q4H PRN PRN Reason: Systolic BP > 170 Hydrocortisone Sodium Succinate (Hydrocortisone 1%) 1.5 gm TOP BID [facility] Last Admin: 07/19/17 08:08 Dose: 1.5 gm Lactulose (Lactulose) 20 gm PO DAILYPRN PRN PRN Reason: Constipation Loratadine (Claritin) 10 mg PO DAILYPRN PRN PRN Reason: Sinus Symptoms Lorazepam (Ativan) 0.25 mg PO Q8HR [facility] Last Admin: 07/19/17 05:17 Dose: 0.25 mg Magnesium Hydroxide (Milk Of Magnesium) 30 ml PO DAILYPRN PRN PRN Reason: Constipation Nitroglycerin (Nitrostat) 0.4 mg SL Q5MIN PRN PRN Reason: Chest Pain Ondansetron HCl (Zofran) 4 mg IVP Q6H PRN PRN Reason: Nausea/Vomiting Last Admin: 07/16/17 09:01 Dose: 4 mg Senna (Senokot) 2 tab PO HSPRN PRN PRN Reason: Constipation Sodium Chloride (Flush - Normal Saline) 10 ml IVF Q12HR [facility]BI Last Admin: 07/19/17 08:09 Dose: Not Given Sodium Chloride (Flush - Normal Saline) 10 ml IVF PRN PRN PRN Reason: Saline Flush Last Admin: 07/16/17 02:08 Dose: 10 ml Tramadol HCl (Ultram) 50 mg PO Q4H PRN PRN Reason: Moderate Pain (4-6) Last Admin: 07/19/17 10:23 Dose: 50 mg
--- NOTE | 2017-07-19 15:49 | DIS ---
DATE OF ADMISSION: 07/13/2017 DATE OF DISCHARGE: 07/19/2017 PRIMARY CARE PHYSICIAN: [facility] call admission DISCHARGE DISPOSITION: [facility]. PRIMARY DISCHARGE DIAGNOSES: 1. Bacteremia with Enterococcus faecalis. 2. Urinary tract infection with Escherichia coli. 3. Multiple skin lesions with infection. 4. Decubitus ulcer with infection. 5. Sepsis with acute organ dysfunction. 6. Toxic metabolic encephalopathy. SECONDARY DISCHARGE DIAGNOSES: Obstructive sleep apnea, morbid obesity with body mass index of 55 an d macrocytic anemia, history of CVA, hepatitis C, diastolic dysfunction, chronic obstructive pulmonar y disease, chronic respiratory failure with hypoxia and hypercapnia, chronic low back pain, chronic a trial fibrillation, and physical deconditioning. PRIMARY PROCEDURE/OPERATION: None. RADIOLOGICAL INVESTIGATION: Chest x-ray. SIGNIFICANT LABORATORY DATA: WBC 10.8, hemoglobin 9.0, MCV 102, platelets 259. INR 1.0. Sodium 140 , potassium 5.0, BUN 43, creatinine 1.69, calcium 8.6, troponin 0.036. Lactic acid 2.9. LFT normal. Urinalysis suggestive of UTI. DISCHARGE MEDICATIONS: Augmentin 600 mg twice daily for 7 days, Ventolin nebulization q.i.d. p.r.n., ProAir HFA 2 puffs q.4 hourly p.r.n., Xanax 1 mg p.o. daily, amitriptyline 25 mg p.o. at bedtime, as pirin 81 mg p.o. daily, Plavix 75 mg p.o. daily, Colace 100 mg p.o. b.i.d., gabapentin 600 mg p.o. b. i.d., omeprazole 40 mg p.o. daily, Zocor 40 mg p.o. at bedtime. CONTRAINDICATIONS: The patient is not on chronic anticoagulation therapy in view of atrial fibrillat ion because patient is on dual antiplatelet therapy and this patient is noncompliant with treatment a nd patient is at high risk for bleeding and for fall risk. CODE STATUS: DNR. INPATIENT CONSULTANTS: Dr. Andrews was following for renal failure. Dr. Colin was following fo r critical care illness. Dr. Kelly was following for Infectious Disease. TEST RESULTS PENDING ON DISCHARGE: None. ALLERGIES: No known drug allergy. DISCHARGE PLAN: Post hospital, patient is discharged to [facility]. Subsequently, ann chan will follow up with primary care physician. HOSPITAL COURSE: A 72-year-old female who was admitted by Dr. Vargas. Please see her H&P for furth er details. This patient has a history of hospice care, but they revoked and they brought her to the emergency room. On admission, patient was found with decubitus ulcer over sacrum which was infected . Patient also had acute kidney failure and hyperkalemia. The patient was meeting sepsis criteria. She was hypotensive. She required bolus fluid. She was encephalopathic in the emergency room, she required IMCU admission. Pulmonary or Critical Care was consulted. Nephrology was consulted. Betty mccarthy was given broad spectrum antibiotic therapy. Per Dr. Kelly was consulted and he recommended to change to Augmentin before discharge. This patient was not requiring any long IV antibiotic therapy. This patient has multiple medical issues and she is at high risk for recurrent admission. At this po int, patient is stabilized. Her renal function is stabilized to baseline. Her electrolytes has also improved. She had demand ischemia during this admission. This patient is not on chronic anticoagul ation therapy because of fall risk and bleeding risk given her need of dual antiplatelet therapy. The patient is seen and examined at bedside today. Please see my progress note from today for furthe r details. The patient is approved for fdc home today. Patient's paperwork for discharg e done. Discharge medication reconciliation done. Total time spent on discharge day 31 minutes.
--- NOTE | 2017-07-19 16:10 | PRG ---
DATE OF SERVICE: 07/19/2017 SUBJECTIVE: The patient was seen and examined with no new complaint, noted with the following. OBJECTIVE: VITAL SIGNS: Afebrile with a temperature of 98.3, pulse 103, respiratory rate 20 with a blood pressu re of 126/70 and O2 sat 99%. HEENT: Unremarkable with moist oral mucosa. No conjunctival injection or icterus. NECK: Supple. CARDIOVASCULAR SYSTEM: First and second heart sounds were heard. RESPIRATORY SYSTEM: Clear to auscultation. DIGESTIVE SYSTEM: Revealed a benign abdomen with positive bowel sounds. EXTREMITIES: No peripheral edema. SKIN: No new gross rash. LYMPHATICS: No peripheral lymphadenopathy. LABORATORY INVESTIGATIONS: Creatinine down to 1.69. IMPRESSION: 1. Acute on chronic kidney disease, which seems to have resolved back to baseline. 2. Bacteremia/sepsis seems to be doing very well. PLAN: 1. Continue renal supportive measures. 2. Renally dose all medications. 3. Further management will be dependent on the clinical course.
[2017-07-19 17:09] VITALS: BP 125/74; TEMP 98.6
--- NOTE | 2017-08-27 10:00 | EKG ---
Test Reason : Blood Pressure : / mmHG Vent. Rate : 089 BPM Atrial Rate : 089 BPM P-R Int : 148 ms QRS Dur : 080 ms QT Int : 362 ms P-R-T Axes : 016 -10 038 degrees QTc Int : 440 ms Sinus rhythm with Premature supraventricular complexes Otherwise normal ECG Confirmed by BECCA FERRARO, ROLAND Grace ([id number]), writer editor ESTELA GARCIA ([id number]) on 08/27/2017 9:59:56 AM Referred By: Confirmed By:ROLAND HUDSON MD
== END 2017-07-19 17:09 | DRG 871 ==
LOC: ERS 18:46 → 2SE 23:04 → CCU 07-14 10:45 → T4-B 07-15 16:40
PROVIDERS: ADMIT Internal Medicine; ATTEND Internal Medicine
DX: A41.81 Sepsis due to Enterococcus (principal); J96.21 Acute and chronic respiratory failure with hypoxia; I50.23 Acute on chronic systolic (congestive) heart failure; N17.9 Acute kidney failure, unspecified; G92 Toxic encephalopathy; L89.153 Pressure ulcer of sacral region, stage 3; I24.8 Other forms of acute ischemic heart disease; I13.0 Hypertensive heart and chronic kidney disease with heart failure and stage 1 through stage 4 chronic kidney disease, or unspecified chronic kidney disease; I95.9 Hypotension, unspecified; J96.22 Acute and chronic respiratory failure with hypercapnia; I69.351 Hemiplegia and hemiparesis following cerebral infarction affecting right dominant side; Z68.43 Body mass index [BMI] 50.0-59.9, adult; N39.0 Urinary tract infection, site not specified; J44.1 Chronic obstructive pulmonary disease with (acute) exacerbation; L02.91 Cutaneous abscess, unspecified; Z99.81 Dependence on supplemental oxygen; E87.5 Hyperkalemia; R65.20 Severe sepsis without septic shock; N18.9 Chronic kidney disease, unspecified; Z72.0 Tobacco use; I48.2 Chronic atrial fibrillation; Z66 Do not resuscitate; B18.2 Chronic viral hepatitis C; L98.419 Non-pressure chronic ulcer of buttock with unspecified severity; B96.20 Unspecified Escherichia coli [E. coli] as the cause of diseases classified elsewhere; E66.01 Morbid (severe) obesity due to excess calories; E78.5 Hyperlipidemia, unspecified; D53.9 Nutritional anemia, unspecified; E86.0 Dehydration; L98.499 Non-pressure chronic ulcer of skin of other sites with unspecified severity; I87.2 Venous insufficiency (chronic) (peripheral); I89.0 Lymphedema, not elsewhere classified; Z96.652 Presence of left artificial knee joint; Z90.49 Acquired absence of other specified parts of digestive tract; G47.33 Obstructive sleep apnea (adult) (pediatric); L30.9 Dermatitis, unspecified; I50.84 End stage heart failure; T40.601A Poisoning by unspecified narcotics, accidental (unintentional), initial encounter
CPT/HCPCS: 36415; 36416; 71010; 80048; 80053; 81003; 81015; 82550; 82553; 83605; 83690; 83735; 83880; 84484; 85025; 85610; 85730; 87040; 87070; 87077; 87086; 87149; 87186; 87205; 93005; 96361; 96365; 96366; 96367; 96375; A4216; G8978-GP-CN; G8979-GP-CM; G8987-GO-CM; G8988-GO-CK; G8996-GN-CI; G8996-GN-CJ; G8997-GN-CI; G8997-GN-CJ; J0696; J1644; J1815; J2310; J2405; J2543; J3370; J7050; S0028

== ENCOUNTER 2017-08-16 19:00 | Emergency (ER) | payer MEDICARE, MEDICAID ==
[2017-08-16 21:31] LABS: #Basophils 0.1 thou/uL (0.0-0.2); #Eosinphils 2.1 thou/uL (0.0-0.7); #Lymphocytes 2.3 thou/uL (1.20-3.40); #Monocytes 0.8 thou/uL (0.11-0.59); #Neutrophils 7.8 thou/uL (1.40-6.50); %Basophils 0.5 % (0.0-1.0); %Eosinophils 16.1 % (0.0-10.0); %Lymphocytes 17.3 % (21.0-51.0); %Monocytes 5.9 % (0.0-10.0); Hematocrit 23.5 % (36.0-47.0); Mean Platelet Volume 5.8 fL (7.4-10.4); Red Blood Cell (RBC) Count 2.36 mill/uL (4.20-5.40)
[2017-08-16 21:52] LABS: ALT (SGPT) 10 U/L (8-55); AST (SGOT) 30 U/L (5-34); Alkaline Phosphatase 161 U/L (40-150); Anion Gap 10 mmol/L (10-20); BUN (Urea Nitrogen) 12 mg/dL (9.8-20.1); Bilirubin, Total 0.4 mg/dL (0.2-1.2); CK (CPK) 41 U/L (29-168); Calc. Creatinine Clearance 0 mL/min (70-130); Calcium 8.8 mg/dL (7.8-10.44); Carbon Dioxide 24 mmol/L (23-31); Chloride 108 mmol/L (98-107); Estimated GFR-MDRD 73; Globulin 4.7 g/dL (2.4-3.5); Protein, Total 7.5 g/dL (6.0-8.3)
[2017-08-16 21:55] LABS: Troponin I Less than 0.010 ng/mL (< 0.028)
--- NOTE | 2017-08-16 22:03 | ULT ---
RIGHT LOWER EXTREMITY VENOUS DOPPLER 08/16/17 PROVIDED CLINICAL HISTORY: Right lower extremity edema. FINDINGS: Condon scale and color doppler sonography with spectral analysis was performed of the right common femo ral, femoral, popliteal, posterior tibial, greater saphenous and profunda femoral veins, demonstratin g a normal sonographic appearance to each. IMPRESSION: No sonographic evidence for right lower extremity deep venous thrombosis. POS: ATUL
--- NOTE | 2017-08-16 22:08 | ULT ---
RIGHT UPPER EXTREMITY VENOUS DOPPLER 08/16/17 PROVIDED CLINICAL HISTORY: Right upper extremity pain and swelling. FINDINGS: Condon scale and color doppler sonography with spectral analysis was performed of the right internal ju gular, subclavian, axillary, basilic, cephalic, brachial, radial and ulnar veins, demonstrating a nor mal sonographic appearance to each. IMPRESSION: No evidence for right upper extremity venous thrombosis. POS: ATUL
== END 2017-08-16 23:47 | disposition home or self-care (01) ==
LOC: ERS 19:00
DX: L03.113 Cellulitis of right upper limb (principal); J45.909 Unspecified asthma, uncomplicated; Z86.73 Personal history of transient ischemic attack (TIA), and cerebral infarction without residual deficits; I48.91 Unspecified atrial fibrillation; E66.9 Obesity, unspecified; G47.30 Sleep apnea, unspecified; I50.9 Heart failure, unspecified; Z87.891 Personal history of nicotine dependence; Z79.899 Other long term (current) drug therapy
CPT/HCPCS: 36415; 80053; 82553; 83880; 84484; 85025; 87040

== ENCOUNTER 2017-10-19 18:31 | Inpatient (IN) | payer MEDICARE, MEDICAID ==
[2017-10-20 02:17] VITALS: BMI 47.2
[2017-10-20] MEDS ORDERED: Acetaminophen 325 MG TAB PO PRN (02:22)
[2017-10-20] MEDS ORDERED: Acetaminophen 650 MG Suppository PR PRN (02:22)
[2017-10-20] MEDS ORDERED: Ondansetron ODT 4 MG TAB PO PRN (02:22)
[2017-10-20] MEDS ORDERED: Ondansetron HCl/PF 4 MG/2 ML Vial IVP PRN (02:22)
[2017-10-20] MEDS ORDERED: Docusate 100 MG CAP PO PRN (02:22)
[2017-10-20] MEDS ORDERED: diphenhydrAMINE 25 MG CAP PO SCH (04:00)
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
[2017-10-20 08:43] LABS: #Eosinphils 1.6 thou/uL (0.0-0.7); #Lymphocytes 1.4 thou/uL (1.20-3.40); #Monocytes 0.6 thou/uL (0.11-0.59); #Neutrophils 6.5 thou/uL (1.40-6.50); %Basophils 0.4 % (0.0-1.0); %Eosinophils 15.8 % (0.0-10.0); %Lymphocytes 13.9 % (21.0-51.0); %Monocytes 5.5 % (0.0-10.0); %Neutrophils 64.4 % (42.0-75.0); Hemoglobin 8.2 g/dL (12.0-16.0); Mean Corpuscular Hemoglobin 29.3 pg (27.0-31.0); Mean Corpuscular Volume 97.7 fl (81.0-99.0); Mean Platelet Volume 6.2 fL (7.4-10.4); Platelet Count 290 thou/uL (130-400); RBC Distribution Width 14.3 % (11.5-14.5); Red Blood Cell (RBC) Count 2.78 mill/uL (4.20-5.40); White Blood Cell (WBC) Count 10.1 thou/uL (4.8-10.8)
[2017-10-20 08:46] LABS: BUN (Urea Nitrogen) 6 mg/dL (9.8-20.1); Calc. Creatinine Clearance 154 mL/min (70-130); Calcium 8.8 mg/dL (7.8-10.44); Estimated GFR-MDRD Greater than 90; Glucose 108 mg/dL (83-110); Iron 31 ug/dL (50-170)
[2017-10-20 08:54] LABS: Anion Gap 11 mmol/L (10-20); Carbon Dioxide 33 mmol/L (23-31); Chloride 97 mmol/L (98-107); Potassium 4.7 mmol/L (3.5-5.1); Sodium 136 mmol/L (136-145)
[2017-10-20 09:13] LABS: Hypochromia MODERATE=16-30 cells (100X) (0-5/hpf); MDiff Complete? YES; PLT Morphology Comment Appears Adequate; Polychromasia SLIGHT = 2-3 cells (100X) (0-2/hpf); Reflex for Review?? NO; Stomatocytes SLIGHT = 2-5 cells (100X) (0-1/hpf)
[2017-10-20] MEDS ORDERED: Nystatin Cream 30 GM TUBE TOP PRN (13:41)
[2017-10-20] MEDS ORDERED: PROVENTIL INHALER 6.7 G (200 INHALATIONS) INH PRN (13:41)
[2017-10-20] MEDS ORDERED: Furosemide 20 MG TAB PO SCH (13:45)
[2017-10-20 15:04] LABS: Bilirubin Negative (Negative); Blood, Urine Negative (Negative); Clarity CLEAR (Clear); Glucose, Urine (Dipstick) Negative (Negative); Leukocyte Small (Negative); Nitrite Negative (Negative); Protein, Urine (Dipstick) Negative (Neg-Trace); Specific Gravity, Urine 1.015 (1.002-1.036); Urobilinogen 0.2 mg/dL (0.2-1.0)
[2017-10-20 15:07] LABS: Bacteria/HPF None Seen HPF (None Seen); Hyaline Casts/LPF 0-3 HYALINE CAST LPF (0-3 Hyaline); Pathc Cast-AUWi Flag 0.27 (0-2.49); RBC/HPF 0-3 HPF (0-3); Squamous Epithelial 0-3 HPF (0-3)
[2017-10-20 15:15] LABS: Amphetamine Not Detected (NotDetected); Barbiturates Screen Not Detected (NotDetected); Benzodiazepine Screen Not Detected (NotDetected); Cocaine Metabolite Screen Not Detected (NotDetected); Medtox Reader # READER 4; Methadone Not Detected (NotDetected); Methamphetamine Not Detected (NotDetected); Opiate Screen Not Detected (NotDetected); Oxycodone Screen Not Detected (NotDetected); Phencyclidine (PCP) Not Detected (NotDetected); THC/Cannabinoid Screen Not Detected (NotDetected); Tricyclic Screen Detected (NotDetected)
[2017-10-20 15:16] LABS: Medtox Control Line Valid? VALID (VALID)
[2017-10-20] MEDS: diphenhydrAMINE 25 MG CAP PO PRN ×2 (18:34→23:38)
[2017-10-20] MEDS: Albuterol Sulfate 2.5 mg/3 ml Neb NEB SCH (19:13)
[2017-10-20] MEDS ORDERED: cefTRIAXone\\ROCEPHIN 1 GM in Sodium Chloride 0.9% 100 ML IVPB SCH (20:00)
[2017-10-20] MEDS ORDERED: cefTRIAXone\\ROCEPHIN 1 GM, Syringe 0.4 ML in Sterile Water 9.6 ML SLOW IVP SCH (20:00)
--- NOTE | 2017-10-20 20:57 | HP ---
DATE OF SERVICE: 10/20/2017 CHIEF COMPLAINT: Fatigue. HISTORY OF PRESENT ILLNESS: The patient is a 72-year-old female with a past medical history of CHF, CVA with right-sided paralysis, hypertension and asthma, who is a [facility] in [facility], who presented with a 3-day history of worsening fatigue. She is typically wheelchair bound and s tates that anytime she had to be transferred, she was just gets so tired that she would fall asleep. The symptoms gradually worsened and she was sent to the ER where she was found to be anemic. She rey s had 1 unit of blood transfusion over the night. Guaiac was negative and hemoglobin has increased f rom 7.0 to 8.2. In looking back at multiple lab draws over the past couple of years, her average hem oglobin is 8 to 9. This morning, the patient has some trace lower extremity edema and appears to be mildly volume overloaded. We will trend her H&H. She gets iron studies. PHYSICAL EXAMINATION: GENERAL: The patient is morbidly obese. CARDIOVASCULAR: The patient has a regularly irregular rhythm without murmurs, gallops, or rubs. LUNGS: Clear to auscultation bilaterally. EXTREMITIES: 1+ pitting edema bilaterally. SKIN: The patient has dry scaly skin on upper extremities and back. PSYCHIATRIC: The patient is somewhat confused and answers questions in a tangential manner. ASSESSMENT AND PLAN: 1. Symptomatic anemia. 2. Chronic congestive heart failure. 3. Chronic hypoxic hypercapnic respiratory failure. 4. Cerebrovascular accident. 5. Atrial fibrillation. 6. Hepatitis C. Please see Dr. Gomez's dictation for the full history and physical, assessment and plan. We will discuss the case in detail and I have repeated pertinent portions of the history and physical by mys elf
[2017-10-20] MEDS ORDERED: Atorvastatin Calcium 20 MG TAB PO SCH (21:00)
[2017-10-20] MEDS ORDERED: Amitriptyline HCl 25 MG TAB PO SCH (21:00)
[2017-10-20] MEDS: Gabapentin 300 MG CAP PO SCH (21:31)
[2017-10-20] MEDS: Docusate 100 MG CAP PO SCH (21:34)
[2017-10-21] MEDS: Albuterol Sulfate 2.5 mg/3 ml Neb NEB SCH ×2 (00:13→07:19)
[2017-10-21] MEDS ORDERED: Polyethylene Glycol 3350 17 GM Packet PO SCH (09:00)
[2017-10-21] MEDS ORDERED: Furosemide 20 MG TAB PO SCH (09:00)
[2017-10-21] MEDS ORDERED: Clopidogrel Bisulfate 75 MG TAB PO SCH (09:00)
[2017-10-21] MEDS ORDERED: Cholestyramine/Aspartame 4 gm Packet PO SCH (09:00)
[2017-10-21] MEDS: Docusate 100 MG CAP PO SCH (09:08)
[2017-10-21] MEDS: Gabapentin 300 MG CAP PO SCH (09:09)
[2017-10-21 09:16] LABS: #Basophils 0.1 thou/uL (0.0-0.2); #Eosinphils 1.6 thou/uL (0.0-0.7); #Lymphocytes 1.5 thou/uL (1.20-3.40); #Monocytes 0.6 thou/uL (0.11-0.59); #Neutrophils 5.7 thou/uL (1.40-6.50); %Basophils 0.6 % (0.0-1.0); %Eosinophils 16.9 % (0.0-10.0); %Lymphocytes 16.1 % (21.0-51.0); %Monocytes 6.4 % (0.0-10.0); Hemoglobin 7.9 g/dL (12.0-16.0); Mean Corpuscular HGB CONC 30.1 g/dL (32.0-36.0); Mean Corpuscular Hemoglobin 29.2 pg (27.0-31.0); Mean Corpuscular Volume 97.2 fl (81.0-99.0); Mean Platelet Volume 6.2 fL (7.4-10.4); Platelet Count 265 thou/uL (130-400); RBC Distribution Width 14.5 % (11.5-14.5); Red Blood Cell (RBC) Count 2.69 mill/uL (4.20-5.40); White Blood Cell (WBC) Count 9.4 thou/uL (4.8-10.8)
[2017-10-21 09:32] LABS: BUN (Urea Nitrogen) 7 mg/dL (9.8-20.1); Calc. Creatinine Clearance 139 mL/min (70-130); Calcium 8.6 mg/dL (7.8-10.44); Estimated GFR-MDRD Greater than 90; Glucose 114 mg/dL (83-110)
[2017-10-21 09:41] LABS: Anion Gap 8 mmol/L (10-20); Carbon Dioxide 38 mmol/L (23-31); Chloride 94 mmol/L (98-107); Potassium 4.3 mmol/L (3.5-5.1); Sodium 136 mmol/L (136-145)
--- NOTE | 2017-10-21 10:56 | PDOC.FM ---
- Subjective Subjective: No acute events overnight. Denies shortness of breath, chest pain, dizziness. No complaints this am. - Objective MAR Reviewed: Yes Vital Signs & Weight: Vital Signs (12 hours) Temp Pulse Resp BP Pulse Ox 10/21/17 08:58 98.1 F 92 18 131/63 100 10/21/17 07:21 96 10/21/17 07:19 98 16 10/21/17 03:06 98.4 F 99 20 136/93 H 98 10/21/17 00:13 101 H 20 98 Weight Weight 121 kg I&O: 10/20/17 10/21/17 10/22/17 06:59 06:59 06:59 Intake Total 340 1720 Output Total 1950 Balance 340 -230 Result Diagrams: 10/21/17 09:09 10/21/17 09:09 <Nga Jacobsen - Last Filed: 10/21/17 11:05> - Objective Vital Signs & Weight: Vital Signs (12 hours) Temp Pulse Resp BP Pulse Ox 10/21/17 12:18 98.4 F 95 18 113/70 100 10/21/17 08:58 98.1 F 92 18 131/63 100 Weight Weight 121 kg I&O: 10/20/17 10/21/17 10/22/17 06:59 06:59 06:59 Intake Total 340 1720 Output Total 1950 725 Balance 340 -230 -725 Result Diagrams: 10/21/17 09:09 10/21/17 09:09 <Rosa Maria Barger - Last Filed: 10/21/17 20:26> Phys Exam - Physical Examination Constitutional: NAD HEENT: PERRLA, moist MMs Respiratory: no wheezing, no rales, clear to auscultation bilateral Cardiovascular: RRR, no significant murmur Gastrointestinal: soft, non-tender, no distention obese; hypoactive bowel sounds Musculoskeletal: no edema Neurological: non-focal Psychiatric: normal affect, A&O x 3 Skin: no rash <Nga Jacobsen - Last Filed: 10/21/17 11:05> Dx/Plan (1) Symptomatic anemia Code(s): D64.9 - ANEMIA, UNSPECIFIED Status: Acute (2) GERD (gastroesophageal reflux disease) Code(s): K21.9 - GASTRO-ESOPHAGEAL REFLUX DISEASE WITHOUT ESOPHAGITIS Status: Chronic (3) HLD (hyperlipidemia) Code(s): E78.5 - HYPERLIPIDEMIA, UNSPECIFIED Status: Chronic (4) HTN (hypertension) Code(s): I10 - ESSENTIAL (PRIMARY) HYPERTENSION Status: Chronic (5) Chronic respiratory failure with hypoxia and hypercapnia Code(s): J96.11 - CHRONIC RESPIRATORY FAILURE WITH HYPOXIA; J96.12 - CHRONIC RESPIRATORY FAILURE WITH HYPERCAPNIA Status: Chronic (6) Diastolic dysfunction Code(s): I51.9 - HEART DISEASE, UNSPECIFIED Status: Chronic (7) Diastolic CHF Code(s): I50.30 - UNSPECIFIED DIASTOLIC (CONGESTIVE) HEART FAILURE Status: Acute (8) History of CVA with residual deficit Code(s): I69.30 - UNSPECIFIED SEQUELAE OF CEREBRAL INFARCTION Status: Chronic (9) Morbid obesity with BMI of 50.0-59.9, adult Code(s): E66.01 - MORBID (SEVERE) OBESITY DUE TO EXCESS CALORIES; Z68.43 - BODY MASS INDEX (BMI) 50-59.9 , ADULT Status: Chronic (10) GAIL (obstructive sleep apnea) Code(s): G47.33 - OBSTRUCTIVE SLEEP APNEA (ADULT) (PEDIATRIC) Status: Chronic - Plan Plan: 72 yo f who presented with 3 day hx of fatigue admitted for symptomatic anemia. 1.) Symptomatic anemia, normocytic- -Iron studies showed a iron deficiency, we will start her on PO iron -Vit b12 and folate pending -Recommend cbc check at [facility] in [facility] week. - Hg 7 on admission - History of chronic anemia with Hg around 8-9 - Transfused 1 unit of pRBCs with goal >8 for stable ischemic cardiomyopathy - Monitor H&H - VSS - No evidence of acute bleed - Guaiac negative - Recommend colonoscopy screening in the outpatient setting. 2. History of CVA with residual right sided weakness - Strength 0/5 on right, sensation intact/hypersensitive - On ASA - CT brain showed interval at left lentiform nucleus, age indeterminate. Moderate chronic microvascular change - No new focal deficits 3. Atrial fibrillation - Anticoagulation with plavix - No evidence of acute bleed; resume anticoagulation 4. Hepatitis C - Stable 5. CHF, diastolic - On chronic O2 at 3L - Stable - Monitor fluid status - O2 sats with goal 88% 6. Chronic hypoxic, hypercapneic respiratory failure - On 3L at home - Stable - Continue O2 support - Encourage CPAP use, particularly in [place] 7. GAIL - Patient has been noncompliant with CPAP and sates she does not use CPAP machine 8. COPD - Duoneb treatments PRN - Continue home medications 9. HTN - Continue home medications 10. HLD - Continue home medications 11. GERD - Continue home medications 12. Deconditioning - PT/OT treat/eval Dispo: okay to d/c back to [place] [facility] <Nga Jacobsen - Last Filed: 10/21/17 11:05> Attending Addendum - Attending Addendum Date/Time: 10/21/17 3216 I personally evaluated the patient and discussed the management with Dr. Jacobsen I agree with the History, Examination, Assessment and Plan documented above with any addition or exceptions noted below. The patient is feeling better. She is ready to go home. Pt will be started on iron for chronic anemia. Hemoglobin is usually 7-8 range over the past year. No signs of fluid overload this morning. <Rosa Maria Barger - Last Filed: 10/21/17 20:26>
[2017-10-21 11:52] LABS: Folate (Folic Acid) 5.6 ng/mL (7.0-31.4)
[2017-10-21 12:21] VITALS: BP 113/70; TEMP 98.4
== END 2017-10-21 15:05 | disposition home or self-care (01) | DRG 812 ==
LOC: ERS 18:31 → 2NO 10-20 00:10
PROVIDERS: ADMIT Student in an Organized Health Care Education/Training Program; ATTEND Student in an Organized Health Care Education/Training Program
PROC: 30233N1 Transfusion of Nonautologous Red Blood Cells into Peripheral Vein, Percutaneous Approach (ICD-10-PCS; principal; 2017-10-20)
DX: D64.9 Anemia, unspecified (principal); J96.11 Chronic respiratory failure with hypoxia; E66.01 Morbid (severe) obesity due to excess calories; I11.0 Hypertensive heart disease with heart failure; I50.32 Chronic diastolic (congestive) heart failure; I48.2 Chronic atrial fibrillation; J96.12 Chronic respiratory failure with hypercapnia; Z68.43 Body mass index [BMI] 50.0-59.9, adult; I69.351 Hemiplegia and hemiparesis following cerebral infarction affecting right dominant side; K21.9 Gastro-esophageal reflux disease without esophagitis; G47.33 Obstructive sleep apnea (adult) (pediatric); B18.2 Chronic viral hepatitis C; J44.9 Chronic obstructive pulmonary disease, unspecified; E78.5 Hyperlipidemia, unspecified; Z99.3 Dependence on wheelchair; Z99.81 Dependence on supplemental oxygen; Z87.891 Personal history of nicotine dependence; Z79.02 Long term (current) use of antithrombotics/antiplatelets; Z79.52 Long term (current) use of systemic steroids; Z79.899 Other long term (current) drug therapy; Z96.652 Presence of left artificial knee joint
CPT/HCPCS: 36430; 36556; 80048; 80306; 81001; 82274; 82607; 82728; 82746; 83540; 83550; 85025; 86850; 86900; 86901; 87086; 93005; 94640; A4216; G8987-GO-CL; G8988-GO-CL; G8989-GO-CL; G8996-GN-CK; G8997-GN-CJ; J0696; J7611; J7620; P9016

== ENCOUNTER 2017-10-22 18:15 | Emergency (ER) | payer MEDICAID, MEDICARE ==
--- NOTE | 2017-10-22 18:46 | RAD ---
PORTABLE CHEST: 10/22/17 HISTORY: Dyspnea. COMPARISON: 10/19/17. Cardiomegaly. Mild vascular congestion. No consolidation or significant effusion. IMPRESSION: Cardiomegaly with mild vascular and interstitial congestion. POS: [facility]
[2017-10-22 19:32] LABS: #Eosinphils 1.7 thou/uL (0.0-0.7); #Lymphocytes 1.6 thou/uL (1.20-3.40); #Monocytes 0.6 thou/uL (0.11-0.59); #Neutrophils 6.4 thou/uL (1.40-6.50); %Eosinophils 16.2 % (0.0-10.0); %Lymphocytes 15.6 % (21.0-51.0); %Monocytes 5.8 % (0.0-10.0); %Neutrophils 62.5 % (42.0-75.0); Hemoglobin 9.2 g/dL (12.0-16.0); Mean Corpuscular HGB CONC 29.7 g/dL (32.0-36.0); Mean Corpuscular Hemoglobin 29.4 pg (27.0-31.0); Mean Corpuscular Volume 98.9 fl (81.0-99.0); Mean Platelet Volume 6.8 fL (7.4-10.4); Platelet Count 285 thou/uL (130-400); RBC Distribution Width 14.4 % (11.5-14.5); Red Blood Cell (RBC) Count 3.14 mill/uL (4.20-5.40); White Blood Cell (WBC) Count 10.2 thou/uL (4.8-10.8)
[2017-10-22 19:47] LABS: ALT (SGPT) 12 U/L (8-55); AST (SGOT) 35 U/L (5-34); Albumin 2.8 g/dL (3.4-4.8); Alkaline Phosphatase 188 U/L (40-150); Anion Gap 9 mmol/L (10-20); BUN (Urea Nitrogen) 10 mg/dL (9.8-20.1); Bilirubin, Total 0.2 mg/dL (0.2-1.2); Calc. Creatinine Clearance 0 mL/min (70-130); Calcium 8.8 mg/dL (7.8-10.44); Carbon Dioxide 36 mmol/L (23-31); Chloride 97 mmol/L (98-107); Estimated GFR-MDRD Greater than 90; Globulin 4.7 g/dL (2.4-3.5); Glucose 107 mg/dL (83-110); MDiff Complete? YES; PLT Morphology Comment Appears Adequate; Polychromasia SLIGHT = 2-3 cells (100X) (0-2/hpf); Potassium 4.5 mmol/L (3.5-5.1); Protein, Total 7.5 g/dL (6.0-8.3); Sodium 137 mmol/L (136-145)
[2017-10-22 19:50] LABS: Troponin I Less than 0.010 ng/mL (< 0.028)
== END 2017-10-22 20:45 | disposition home or self-care (01) ==
LOC: ERS 18:15
DX: D64.9 Anemia, unspecified (principal); J44.9 Chronic obstructive pulmonary disease, unspecified; I48.91 Unspecified atrial fibrillation; I50.9 Heart failure, unspecified; E66.9 Obesity, unspecified; G47.30 Sleep apnea, unspecified; F32.9 Major depressive disorder, single episode, unspecified; Z79.899 Other long term (current) drug therapy; Z87.891 Personal history of nicotine dependence; Z86.73 Personal history of transient ischemic attack (TIA), and cerebral infarction without residual deficits
CPT/HCPCS: 36415; 71045; 80053; 82553; 83880; 84484; 85025; 93005; 94640; J7620

== ENCOUNTER 2017-12-05 19:23 | Inpatient (IN) | payer MEDICARE, MEDICAID ==
[2017-12-05] MEDS ORDERED: KETAMINE 100 MG/ML (5ML VIAL) ONE (20:00)
[2017-12-05] MEDS ORDERED: Nitroglycerin 2% Ointment 1 INCH/1 GM Packet ONE (20:38)
[2017-12-05] MEDS ORDERED: Nitroglycerin 0.4 MG TAB (25 Tab Bottle) ONE (20:38)
--- NOTE | 2017-12-05 20:47 | RAD ---
CHEST ONE VIEW: HISTORY: Shortness of breath for several days. COMPARISON: 10/22/2017 FINDINGS: A portable upright chest demonstrates an enlarged cardiac silhouette. There is atherosclerosis of th e aorta. There are bilateral predominantly perihilar reticulonodular opacities. There is fullness i n the right hilum. Minimal haziness in the right lung base. Mild hyperinflation. No pneumothorax. IMPRESSION: 1. Mild right hilar fullness, which may, in part, be due to patient rotation. 2. Bilateral interstitial and alveolar opacities, cardiomegaly. Correlate for congestive heart fail ure. 3. Atherosclerosis. POS: [facility]
[2017-12-05] MEDS ORDERED: Dexamethasone 10 MG/ML VIAL ONE (21:01)
[2017-12-05 21:07] LABS: #Eosinphils 0.2 thou/uL (0.0-0.7); #Lymphocytes 1.1 thou/uL (1.20-3.40); #Monocytes 0.5 thou/uL (0.11-0.59); #Neutrophils 7.4 thou/uL (1.40-6.50); %Basophils 0.4 % (0.0-1.0); %Eosinophils 2.6 % (0.0-10.0); %Lymphocytes 11.6 % (21.0-51.0); %Monocytes 5.4 % (0.0-10.0); ALT (SGPT) 14 U/L (8-55); AST (SGOT) 32 U/L (5-34); Albumin 3.8 g/dL (3.4-4.8); Alkaline Phosphatase 159 U/L (40-150); Anion Gap 13 mmol/L (10-20); BUN (Urea Nitrogen) 16 mg/dL (9.8-20.1); Bilirubin, Total 0.2 mg/dL (0.2-1.2); CK (CPK) 54 U/L (29-168); Calc. Creatinine Clearance 0 mL/min (70-130); Calcium 9.2 mg/dL (7.8-10.44); Carbon Dioxide 25 mmol/L (23-31); Chloride 104 mmol/L (98-107); Estimated GFR-MDRD 73; Globulin 4.7 g/dL (2.4-3.5); Glucose 112 mg/dL (83-110); Hemoglobin 7.7 g/dL (12.0-16.0); Lipase 14 U/L (8-78); Mean Corpuscular HGB CONC 28.9 g/dL (32.0-36.0); Mean Corpuscular Hemoglobin 29.5 pg (27.0-31.0); Mean Platelet Volume 6.7 fL (7.4-10.4); Platelet Count 310 thou/uL (130-400); Protein, Total 8.5 g/dL (6.0-8.3); RBC Distribution Width 14.4 % (11.5-14.5); Sodium 133 mmol/L (136-145); White Blood Cell (WBC) Count 9.3 thou/uL (4.8-10.8)
[2017-12-05 21:10] LABS: CKMB 2.8 ng/mL (0-6.6); Troponin I 0.026 ng/mL (< 0.028)
[2017-12-05] MEDS ORDERED: Magnesium 2 GM/NS 0.9% 50 ML 2 GM in Premix Bag 1 BAG IVPB SCH (21:15)
[2017-12-05 21:16] LABS: Potassium 8.6 mmol/L (3.5-5.1)
[2017-12-05 21:46] LABS: Potassium 8.1 mmol/L (3.5-5.1)
[2017-12-05 22:00] LABS: Bilirubin Negative (Negative); Blood, Urine Negative (Negative); Clarity CLEAR (Clear); Glucose, Urine (Dipstick) Negative (Negative); Leukocyte Negative (Negative); Nitrite Negative (Negative); Protein, Urine (Dipstick) Negative (Neg-Trace); Specific Gravity, Urine 1.017 (1.002-1.036); Urobilinogen 0.2 mg/dL (0.2-1.0); pH, Urine 5.5 (5.0-9.0)
[2017-12-05] MEDS ORDERED: Ondansetron PF 4 MG/2 ML Vial IVP PRN (22:01)
[2017-12-05] MEDS ORDERED: Milk Of Magnesia 30 ML UDCUP PO PRN (22:01)
[2017-12-05] MEDS ORDERED: Acetaminophen 325 MG TAB PO PRN (22:01)
[2017-12-05] MEDS ORDERED: Azithromycin 500 MG in Sodium Chloride 0.9% 250 ML 250 ML IVPB SCH (22:15)
[2017-12-05 23:17] LABS: Potassium 8.1 mmol/L (3.5-5.1)
[2017-12-05] MEDS ORDERED: Calcium Gluc 4.6 MEQ/10 ML (100 MG/ML) SLOW IVP SCH (23:59)
[2017-12-06] MEDS ORDERED: Dextrose 50% Abboject 50 ML SYRINGE ONE (00:08)
[2017-12-06] MEDS ORDERED: Insulin Regular 300 UNITS/3 ML VIAL ONE (00:08)
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
[2017-12-06] MEDS: Ipratropium Bromide 2.5 ml Neb NEB SCH ×4 (00:10→10:53)
[2017-12-06] MEDS ORDERED: Insulin Regular 300 UNITS/3 ML VIAL IVP SCH ×3 (00:15→15:15)
[2017-12-06] MEDS ORDERED: Insulin Regular 300 UNITS/3 ML VIAL SC SCH (00:15)
[2017-12-06] MEDS ORDERED: Dextrose 50% Abboject 50 ML SYRINGE SLOW IVP SCH ×3 (00:15→15:15)
[2017-12-06 00:35] LABS: Troponin I 0.066 ng/mL (< 0.028)
[2017-12-06 00:50] VITALS: BMI 46.4
[2017-12-06] MEDS ORDERED: Lorazepam 2 MG/ML VIAL SLOW IVP PRN (01:04)
[2017-12-06] MEDS: Albuterol Sulfate 2.5 mg/3 ml Neb NEB PRN ×2 (01:44→05:18)
[2017-12-06 02:32] LABS: Potassium 8.3 mmol/L (3.5-5.1)
[2017-12-06] MEDS ORDERED: PROVENTIL INHALER 6.7 G (200 INHALATIONS) INH PRN (02:46)
[2017-12-06] MEDS ORDERED: diphenhydrAMINE 25 MG CAP PO PRN (02:46)
[2017-12-06] MEDS ORDERED: Guaifenesin DM 100-10/5 ML UDCUP PO PRN (02:46)
[2017-12-06] MEDS ORDERED: Nystatin Cream 30 GM TUBE TOP PRN (02:46)
[2017-12-06 03:50] LABS: #Lymphocytes 0.6 thou/uL (1.20-3.40); #Monocytes 0.1 thou/uL (0.11-0.59); #Neutrophils 8.8 thou/uL (1.40-6.50); %Basophils 0.2 % (0.0-1.0); %Eosinophils 0.2 % (0.0-10.0); %Lymphocytes 5.9 % (21.0-51.0); %Monocytes 0.9 % (0.0-10.0); %Neutrophils 92.9 % (42.0-75.0); Mean Corpuscular Hemoglobin 29.3 pg (27.0-31.0); Mean Platelet Volume 6.1 fL (7.4-10.4); Platelet Count 278 thou/uL (130-400); RBC Distribution Width 14.3 % (11.5-14.5); Red Blood Cell (RBC) Count 2.37 mill/uL (4.20-5.40); White Blood Cell (WBC) Count 9.4 thou/uL (4.8-10.8)
[2017-12-06 04:01] LABS: Phosphorus 4.7 mg/dL (2.3-4.7)
[2017-12-06 04:06] LABS: Troponin I 0.067 ng/mL (< 0.028)
[2017-12-06 04:09] LABS: Anion Gap 6 mmol/L (10-20); BUN (Urea Nitrogen) 16 mg/dL (9.8-20.1); Calc. Creatinine Clearance 113 mL/min (70-130); Calcium 9.6 mg/dL (7.8-10.44); Carbon Dioxide 30 mmol/L (23-31); Chloride 103 mmol/L (98-107); Estimated GFR-MDRD 79; Glucose 127 mg/dL (83-110); Sodium 131 mmol/L (136-145)
[2017-12-06 04:14] LABS: Potassium 8.3 mmol/L (3.5-5.1)
[2017-12-06] MEDS: Furosemide 40 MG/4 ML VIAL SLOW IVP SCH ×3 (05:04→15:28)
--- NOTE | 2017-12-06 07:00 | PDOC.EVN ---
Event Note - Event Note Event Note: Patient admitted for acute hypoxic respiratory failure. Initial critical care time 35 minutes. For more details, please refer to H and P.
[2017-12-06] MEDS ORDERED: Docusate 100 MG CAP PO SCH (09:00)
[2017-12-06 09:02] LABS: Troponin I 0.088 ng/mL (< 0.028)
[2017-12-06] MEDS: Albuterol Sulfate 1.25 MG/3 ML NEB NEB SCH ×6 (09:21→16:54)
[2017-12-06] MEDS ORDERED: Albuterol Sulfate 2.5 mg/3 ml Neb ONE ×3 (09:23→16:52)
[2017-12-06] MEDS ORDERED: Albuterol Sulfate 2.5 mg/0.5 ml Neb ONE ×5 (09:23→16:52)
[2017-12-06] MEDS: Clopidogrel Bisulfate 75 MG TAB PO SCH (10:10)
[2017-12-06] MEDS: Gabapentin 300 MG CAP PO SCH ×2 (10:10→20:07)
[2017-12-06] MEDS: Heparin 5,000 UNITS/ML VIAL SC SCH ×3 (10:10→20:07)
[2017-12-06] MEDS: Polyethylene Glycol 3350 17 GM Packet PO SCH (10:11)
[2017-12-06] MEDS: Docusate 100 MG CAP PO SCH ×2 (10:11→20:07)
[2017-12-06] MEDS: Lorazepam 2 MG/ML VIAL SLOW IVP PRN ×2 (10:19→20:24)
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
[2017-12-06] MEDS: Cholestyramine/Aspartame 4 gm Packet PO SCH (12:33)
[2017-12-06] MEDS ORDERED: Furosemide 100 MG/10 ML VIAL SLOW IVP SCH (12:45)
[2017-12-06 14:02] LABS: Anion Gap 13 mmol/L (10-20); BUN (Urea Nitrogen) 14 mg/dL (9.8-20.1); Calc. Creatinine Clearance 113 mL/min (70-130); Calcium 9.2 mg/dL (7.8-10.44); Carbon Dioxide 29 mmol/L (23-31); Chloride 101 mmol/L (98-107); Estimated GFR-MDRD 80; Glucose 108 mg/dL (83-110); Sodium 136 mmol/L (136-145)
[2017-12-06 14:10] LABS: Potassium 6.8 mmol/L (3.5-5.1)
--- NOTE | 2017-12-06 14:48 | PDOC.PN ---
- Subjective Encounter Start Date: 12/06/17 Encounter Start Time: 09:00 Pt seen for followup re: acute on chronic hypoxic respiratory failure. Denies chest pain. Reports SOBOE. No nausea or vomiting. - Objective MAR Reviewed: Yes Vital Signs & Weight: Vital Signs (12 hours) Temp Pulse Resp Pulse Ox 12/06/17 12:00 98.6 F 12/06/17 11:13 98 12/06/17 10:53 84 21 H 100 12/06/17 09:21 81 20 100 12/06/17 08:06 98 12/06/17 08:03 69 26 H 98 12/06/17 08:00 98.6 F 97 18 100 12/06/17 05:18 97 12/06/17 04:00 98.5 F 12/06/17 03:41 96 Weight Weight 259 lb 15.956 oz Most Recent Monitor Data Heart Rate from ECG 95 NIBP 132/68 NIBP BP-Mean 84 Respiration from ECG 21 SpO2 100 I&O: 12/05/17 12/06/17 12/07/17 06:59 06:59 06:59 Intake Total 250 100 Output Total 830 2580 Balance -580 -2480 Result Diagrams: 12/06/17 03:00 12/06/17 13:31 EKG Reviewed by me: Yes (tele: NSR) Phys Exam - Physical Examination Morbid obesity HEENT: PERRLA, moist MMs, sclera anicteric, oral pharynx no lesions Neck: no nodes, no JVD, supple, full ROM Respiratory: no wheezing, no rhonchi Frederick crackles Cardiovascular: RRR, no rub Gastrointestinal: soft, non-tender, positive bowel sounds distention Musculoskeletal: edema present R weakness Psychiatric: normal affect Deviation from normal: Oriented to person and place, not to time Dx/Plan (1) Acute and chronic respiratory failure with hypoxia Code(s): J96.21 - ACUTE AND CHRONIC RESPIRATORY FAILURE WITH HYPOXIA Status: Acute Comment: In CCU, refused mechanical ventilation. (2) Hyperkalemia Code(s): E87.5 - HYPERKALEMIA Status: Acute Comment: Receiving treatments to correct hyperkalemia. Etiology unclear. Consulted nephrology service. (3) Diastolic CHF Code(s): I50.30 - UNSPECIFIED DIASTOLIC (CONGESTIVE) HEART FAILURE Status: Acute Qualifiers: Heart failure chronicity: acute on chronic Qualified Code(s): I50.33 - Acute on chronic diastolic (congestive) heart failure Comment: ACC/AHA Class C. Continue furosemide (4) COPD (chronic obstructive pulmonary disease) Status: Chronic Qualifiers: COPD type: COPD with acute exacerbation Qualified Code(s): J44.1 - Chronic obstructive pulmonary disease with (acute) exacerbation Comment: continue oxygen, bronchodilators (5) GERD (gastroesophageal reflux disease) Code(s): K21.9 - GASTRO-ESOPHAGEAL REFLUX DISEASE WITHOUT ESOPHAGITIS Status: Chronic (6) HLD (hyperlipidemia) Code(s): E78.5 - HYPERLIPIDEMIA, UNSPECIFIED Status: Chronic Comment: continue statin (7) HTN (hypertension) Code(s): I10 - ESSENTIAL (PRIMARY) HYPERTENSION Status: Chronic Comment: monitor vital signs - Plan * . Prognosis poor. consult palliative care. Review of Systems - Review of Systems Constitutional: negative: fever, chills, sweats, weakness, malaise Respiratory: Cough, Dry, SOB with Excertion. negative: Shortness of Breath, Pleuritic Pain, Sputum, Wheezing Cardiovascular: negative: chest pain, palpitations, orthopnea, paroxysmal nocturnal dyspnea, edema, light headedness Gastrointestinal: negative: Nausea, Vomiting, Abdominal Pain, Diarrhea, Constipation, Melena, Hematochezia Genitourinary: negative: Dysuria, Frequency, Incontinence, Hematuria, Retention - Medications/Allergies Allergies/Adverse Reactions: Allergies Allergy/AdvReac Type Severity Reaction Status Date / Time No Known Allergies Allergy Verified 10/20/17 02:15 Medications: Current Medications Acetaminophen (Tylenol) 650 mg PO Q4H PRN PRN Reason: temp/pain Albuterol Sulfate (Albuterol Sulfate) 10 mg NEB Q1H [facility] Stop: 12/06/17 16:46 Albuterol/Ipratropium (Duoneb) 3 ml NEB [id number] [facility] Last Admin: 12/06/17 10:55 Dose: 3 ml Aspirin (Aspirin Chewable) 81 mg PO DAILY [facility] Last Admin: 12/06/17 10:10 Dose: 81 mg Atorvastatin Calcium (Lipitor) 20 mg PO HS [facility] Cholestyramine Resin (Questran Light) 4 gm PO DAILY [facility] Last Admin: 12/06/17 12:33 Dose: Not Given Clopidogrel Bisulfate (Plavix) 75 mg PO DAILY [facility] Last Admin: 12/06/17 10:10 Dose: 75 mg Dextrose/Water (Dextrose 50%) 25 gm SLOW IVP ONE ONE Stop: 12/06/17 14:37 Diphenhydramine HCl (Benadryl) 25 mg PO Q6H PRN PRN Reason: Itching Docusate Sodium (Colace) 100 mg PO BID [facility] Last Admin: 12/06/17 10:11 Dose: Not Given Furosemide (Lasix) 40 mg SLOW IVP 0600,1400 [facility] Last Admin: 12/06/17 05:04 Dose: 40 mg Gabapentin (Neurontin) 600 mg PO BID [facility] Last Admin: 12/06/17 10:10 Dose: 600 mg Guaifenesin/Dextromethorphan (Robitussin Dm) 10 ml PO Q6H PRN PRN Reason: Cough Heparin Sodium (Porcine) (Heparin) 5,000 units SC TID [facility] Last Admin: 12/06/17 10:10 Dose: 5,000 units Levofloxacin 750 mg/ Device 150 mls @ 100 mls/hr IVPB Q24HR [facility] Last Admin: 12/06/17 10:21 Dose: 150 mls Insulin Human Regular (Humulin R) 10 units IVP ONE [facility] Lactulose (Lactulose) 20 gm PO DAILYPRN PRN PRN Reason: Constipation Lorazepam (Ativan) 1 mg SLOW IVP Q4H PRN PRN Reason: Anxiety/Agitation Last Admin: 12/06/17 10:19 Dose: 1 mg Magnesium Hydroxide (Milk Of Magnesium) 30 ml PO DAILYPRN PRN PRN Reason: Constipation Methylprednisolone Sodium Succinate (Solu-Medrol) 40 mg IVP 0300,0900,1500, 2100 [facility] Last Admin: 12/06/17 10:10 Dose: 40 mg Nystatin (Mycostatin Cream) 15 gm TOP BIDPRN PRN PRN Reason: rash to folds Ondansetron HCl (Zofran) 4 mg IVP Q6H PRN PRN Reason: Nausea/Vomiting Pantoprazole Sodium (Protonix) 40 mg PO DAILY [facility] Last Admin: 12/06/17 10:10 Dose: 40 mg Polyethylene Glycol (Miralax) 17 gm PO DAILY [facility] Last Admin: 12/06/17 10:11 Dose: Not Given Sodium Chloride (Flush - Normal Saline) 10 ml IVF Q12HR [facility] Last Admin: 12/06/17 10:11 Dose: 10 ml Sodium Chloride (Flush - Normal Saline) 10 ml IVF PRN PRN PRN Reason: Saline Flush Sodium Polystyrene Sulfonate (Kayexelate Oral Susp 15 Gm/60 Ml) 15 gm PO ONE RUBI
--- NOTE | 2017-12-06 18:01 | CON ---
DATE OF CONSULTATION: 12/06/2017 REASON FOR CONSULTATION: Congestive heart failure, apparently end-stage. HISTORY OF PRESENT ILLNESS: Ms. Darcy Canseco is a 72-year-old woman with current CODE STATUS: DO N OT RESUSCITATE, admitted to the hospital with respiratory failure, heart failure and hyperkalemia. The patient is currently unable to give any history. The patient has had multiple admissions as outlined in the chart. The patient is brought here from a residential with increasing shortness of breath and hyperkalemia. Potassium is 8. PAST MEDICAL HISTORY: 1. Congestive heart failure. No details available. 2. Atrial fibrillation, no details available. 3. History of stroke with right-sided hemiparesis. 4. COPD. 5. Hepatitis C. 6. Asthma. PAST SURGICAL HISTORY: Knee replacement and abdominal surgery. ALLERGIES: None. FAMILY HISTORY: Unobtainable. SOCIAL HISTORY: No smoking, no alcohol, no drugs. REVIEW OF SYSTEMS: Not obtainable. She does not answer any questions. MEDICATIONS PRIOR TO ADMISSION: 1. Acetaminophen. 2. Plavix. 3. Aspirin. 4. Gabapentin. 5 Dextromethorphan. 6. Nitrofurantoin. 7. Nystatin. 8. Omeprazole. 9. Polyethylene glycol. 10. Simvastatin. PHYSICAL EXAMINATION: GENERAL: It is a 72-year-old -[place] female who is sleeping, but she arouses to verbal stim emily, but does not answer questions. VITAL SIGNS: Blood pressure is 132/70, pulse is in the pulse 94, sinus with PACs. HEENT: Eyes, sclerae nonicteric. Mouth, mucous membranes moist. NECK: Supple, no lymphadenopathy. LUNGS: Clear anterolaterally. CARDIAC: Normal S1, normal S2, no murmur, rub or gallop. ABDOMEN: Soft, nontender. EXTREMITIES: There is moderate to severe edema. SKIN: Warm and dry. PERTINENT LABORATORY AND X-RAY FINDINGS: The potassium was 8.0. The repeat potassium is still pendi ng in the computer, it is under 7 what I have been told verbally. Creatinine is 0.85. Chest x-ray s hows cardiomegaly, pulmonary congestion. ASSESSMENT: 1. Congestive heart failure. I suspect it is systolic or diastolic mixed, but we do not have a rece nt ejection fraction. 2. Hyperkalemia. 3. Previous strokes. 4. Paroxysmal atrial fibrillation by report, no documentation available. 5. DO NOT RESUSCITATE STATUS. PLAN: 1. Agree with diuretics. 2. Echocardiogram. 3. No YOLI inhibitors obviously or angiotensin receptor blockers in view of hyperkalemia.
[2017-12-06 19:32] LABS: Potassium 6.2 mmol/L (3.5-5.1)
[2017-12-06] MEDS: Atorvastatin Calcium 20 MG TAB PO SCH (20:07)
[2017-12-06] MEDS: Amitriptyline HCl 25 MG TAB PO SCH (20:07)
[2017-12-07] MEDS: Lorazepam 2 MG/ML VIAL SLOW IVP PRN (03:09)
[2017-12-07 04:18] LABS: #Lymphocytes 0.5 thou/uL (1.20-3.40); #Monocytes 0.2 thou/uL (0.11-0.59); #Neutrophils 3.3 thou/uL (1.40-6.50); %Basophils 0.4 % (0.0-1.0); %Eosinophils 0.3 % (0.0-10.0); %Lymphocytes 11.7 % (21.0-51.0); %Monocytes 5.8 % (0.0-10.0); %Neutrophils 81.8 % (42.0-75.0); Hemoglobin 6.1 g/dL (12.0-16.0); Mean Corpuscular HGB CONC 31.1 g/dL (32.0-36.0); Mean Corpuscular Hemoglobin 30.6 pg (27.0-31.0); Mean Corpuscular Volume 98.1 fl (81.0-99.0); Mean Platelet Volume 6.6 fL (7.4-10.4); Platelet Count 257 thou/uL (130-400); RBC Distribution Width 14.4 % (11.5-14.5); Red Blood Cell (RBC) Count 1.98 mill/uL (4.20-5.40); White Blood Cell (WBC) Count 4.1 thou/uL (4.8-10.8)
[2017-12-07 04:35] LABS: Anion Gap 11 mmol/L (10-20); BUN (Urea Nitrogen) 19 mg/dL (9.8-20.1); Calc. Creatinine Clearance 97 mL/min (70-130); Calcium 8.9 mg/dL (7.8-10.44); Carbon Dioxide 34 mmol/L (23-31); Chloride 99 mmol/L (98-107); Estimated GFR-MDRD 67; Glucose 113 mg/dL (83-110); Potassium 6.5 mmol/L (3.5-5.1); Sodium 137 mmol/L (136-145)
[2017-12-07] MEDS: Furosemide 40 MG/4 ML VIAL SLOW IVP SCH ×2 (05:40→13:17)
[2017-12-07 07:37] LABS: #Lymphocytes 0.4 thou/uL (1.20-3.40); #Monocytes 0.1 thou/uL (0.11-0.59); #Neutrophils 3.1 thou/uL (1.40-6.50); %Basophils 0.2 % (0.0-1.0); %Eosinophils 0.2 % (0.0-10.0); %Lymphocytes 9.8 % (21.0-51.0); %Monocytes 3.5 % (0.0-10.0); %Neutrophils 86.3 % (42.0-75.0); Hemoglobin 6.2 g/dL (12.0-16.0); Mean Corpuscular HGB CONC 30.6 g/dL (32.0-36.0); Mean Platelet Volume 6.8 fL (7.4-10.4); Platelet Count 270 thou/uL (130-400); RBC Distribution Width 14.3 % (11.5-14.5); Red Blood Cell (RBC) Count 2.01 mill/uL (4.20-5.40); White Blood Cell (WBC) Count 3.5 thou/uL (4.8-10.8)
--- NOTE | 2017-12-07 08:07 | EKG ---
Test Reason : STAT Blood Pressure : / mmHG Vent. Rate : 073 BPM Atrial Rate : 073 BPM P-R Int : 000 ms QRS Dur : 118 ms QT Int : 416 ms P-R-T Axes : 000 -14 051 degrees QTc Int : 458 ms Sinus rhythm with Premature atrial complexes Cannot rule out Anterior infarct , age undetermined (Doubtful) Abnormal ECG When compared with ECG of 22-OCT-2017 18:46, QRS duration has increased Confirmed by NAKIA GUNTER ([id number]) on 12/07/2017 8:07:25 AM Referred By: Juan Carlos CAZARES Confirmed By:NAKIA GUNTER
--- NOTE | 2017-12-07 09:11 | CON ---
DATE OF CONSULTATION: 12/06/2017 CONSULTING PHYSICIAN: Dr. Andrews. REQUESTING PHYSICIAN: Dr. Johnson. REASON FOR CONSULTATION: Severe hyperkalemia. IMPRESSION: 1. Severe hyperkalemia, cause is pretty much unknown. The patient does not have any clinical eviden ce of type 4 renal tubular acidosis nor any medication associated with hyperkalemia. 2. Congestive heart failure exacerbation. PLAN: 1. All the medical management for hyperkalemia has been initiated. In addition, we will have this p atient placed on loop diuretic to help with excretion of his potassium. 2. It has been a mystery the hyperkalemia in this patient as this has occurred before, and the patie nt responded to medical therapy. 3. We will repeat the potassium, if he is trending down, we will hold off on initiating hemodialysis . Otherwise, if the potassium is not responding well to medical therapy, emergent hemodialysis will be indicated. HISTORY OF PRESENT ILLNESS: History is that of a 72-year-old halfway resident who presented her e with shortness of breath and incidentally found to be severely hyperkalemic with potassium of 8.6. As a result of this, decision has been taken to involve Renal in the management of this case. Revie w of the patient's medication did not elicit any medication that could be implicated in hyperkalemia. The patient's renal function remains within normal range. PAST MEDICAL HISTORY: Significant congestive heart failure, atrial fibrillation, CVA, COPD, hepatiti s C, and asthma. MEDICATIONS: Reviewed as documented on [facility]. SOCIAL HISTORY: Remote tobacco use, no illicit drug use. ALLERGIES: No known drug allergy. FAMILY HISTORY: None significantly related to presenting illness. PHYSICAL EXAMINATION: GENERAL: The patient was found to be alert, claiming to be have been admitted against her will, want s to get out of here. VITAL SIGNS: Noted with the following vital signs, blood pressure 156/54, respiratory 24, pulse 98. HEENT: Unremarkable. CARDIOVASCULAR SYSTEM: First and second heart sounds were heard. RESPIRATORY SYSTEM: Reveals some wheezing. DIGESTIVE SYSTEM: Revealed an obese abdomen. EXTREMITIES: Showed no lymphedema. NEUROLOGIC: Alert, oriented. No lateralizing signs. LYMPHATICS: No peripheral lymphadenopathy. SUMMARY: A 72-year-old female patient who presented here with shortness of breath and incidentally f ound to be severely hyperkalemic. Thank you for this consultation. We will follow with you.
[2017-12-07] MEDS: Gabapentin 300 MG CAP PO SCH ×2 (09:30→20:30)
[2017-12-07] MEDS: Docusate 100 MG CAP PO SCH ×2 (09:30→20:31)
[2017-12-07] MEDS: Clopidogrel Bisulfate 75 MG TAB PO SCH (09:30)
[2017-12-07] MEDS: Cholestyramine/Aspartame 4 gm Packet PO SCH (09:30)
[2017-12-07] MEDS: Polyethylene Glycol 3350 17 GM Packet PO SCH (09:38)
[2017-12-07] MEDS: Heparin 5,000 UNITS/ML VIAL SC SCH ×3 (09:58→20:32)
[2017-12-07] MEDS ORDERED: Heparin 10,000 UNITS/ 10 ML VIAL ONE (10:00)
--- NOTE | 2017-12-07 11:50 | PRG ---
DATE OF SERVICE: 12/07/2017 SERVICE: Pulmonary Medicine INTERVAL HISTORY: The patient is doing well from a respiratory standpoint. She is breathing comfort ably. She has no chest discomfort, nausea, vomiting, fever or chills. Her potassium is down a littl e bit today. Otherwise, there has been no interval change her condition. PHYSICAL EXAMINATION: VITAL SIGNS: Afebrile, pulse 88, blood pressure 115/61, respirations 20, saturation 99% on 3 liters nasal cannula. GENERAL: The patient is awake, alert, in no apparent distress. LUNGS: Decent air entry. Dependent crackles are minimal. HEART: Normal rate, regular. ABDOMEN: Soft, nontender, nondistended. Bowel sounds are positive. MUSCULOSKELETAL: No cyanosis or clubbing. There is no pitting in the bilateral lower extremities. NEUROLOGIC: Nonfocal. LABORATORY DATA: WBC 3.5, hemoglobin 6.2, platelets 270,000. Potassium 6.5. Basic metabolic profil e is otherwise unremarkable with a creatinine of 0.99. Folate was previously low. IMAGING: Chest x-ray demonstrates bilateral interstitial opacifications and overt alveolar changes. It is an underpenetrated film; however, which could accentuate our markings. Heart is enlarged. ASSESSMENT: 1. Macrocytic anemia. 2. Hyperkalemia. 3. Acute on chronic hypoxic respiratory failure. 4. Acute on chronic systolic and diastolic heart failure. 5. History of stroke. 6. Obstructive sleep apnea, DISCUSSION AND PLAN: We will continue the diuretics until she returns to euvolemia. The potassium i s down trending, but Nephrology wants to do dialysis today. I will initiate the patient on some ferdinand te as she was previously deficient in this. Pulmonary Critical Care will continue to follow along.
[2017-12-07 12:04] LABS: Hep B Surf Ag Non-Reactive S/CO (NonReactive)
[2017-12-07] MEDS ORDERED: FOLIC ACID SC SCH (12:30)
[2017-12-07 13:04] LABS: Phosphorus 4.9 mg/dL (2.3-4.7); Uric Acid 7.4 mg/dL (2.6-6.0)
--- NOTE | 2017-12-07 17:53 | PDOC.PN ---
- Subjective Encounter Start Date: 12/07/17 Encounter Start Time: 10:00 Pt seen for followup re: hyperkalemia. Denies chest pain. Reports SOBOE. - Objective MAR Reviewed: Yes Vital Signs & Weight: Vital Signs (12 hours) Temp Pulse Pulse Resp BP Pulse Ox 12/07/17 16:45 98.3 F 144 H 22 H 138/79 12/07/17 16:30 98.2 F 136 H 22 H 140/84 12/07/17 16:15 98 F 107 H 20 142/74 H 12/07/17 16:00 98 F 84 22 H 128/87 12/07/17 15:55 98 F 120 H 18 138/73 12/07/17 15:43 98 F 134 H 18 140/87 12/07/17 15:25 98.2 F 138 H 18 141/87 H 12/07/17 15:10 98.2 F 140 H 128/73 12/07/17 12:24 98.1 F 88 20 100 12/07/17 10:20 88 20 99 12/07/17 10:00 98.0 F 12/07/17 08:01 99 12/07/17 07:59 78 20 99 12/07/17 07:47 98.1 F 12/07/17 07:40 98.1 F 88 20 99 Weight Weight 237 lb 3.478 oz Most Recent Monitor Data Heart Rate from ECG 93 NIBP 115/61 NIBP BP-Mean 82 Respiration from ECG 21 SpO2 98 I&O: 12/06/17 12/07/17 12/08/17 06:59 06:59 06:59 Intake Total 250 200 960 Output Total 830 4970 800 Balance -580 -4770 160 Result Diagrams: 12/07/17 06:29 12/07/17 03:35 Additional Labs: Accuchecks 12/06/17 19:50 POC Glucose 122 H EKG Reviewed by me: Yes (Tele: NSR) Phys Exam - Physical Examination Morbid obesity HEENT: PERRLA, moist MMs, sclera anicteric, oral pharynx no lesions Neck: no nodes, no JVD, supple, full ROM Respiratory: no wheezing, no rhonchi Bibasal crackles Cardiovascular: RRR, no rub Gastrointestinal: soft, non-tender, positive bowel sounds distention Musculoskeletal: pulses present Neurological: moves all 4 limbs Psychiatric: normal affect Skin: no rash Dx/Plan (1) Hyperkalemia Code(s): E87.5 - HYPERKALEMIA Status: Acute Comment: Potassium improved, plan for dialysis noted (2) Acute and chronic respiratory failure with hypoxia Code(s): J96.21 - ACUTE AND CHRONIC RESPIRATORY FAILURE WITH HYPOXIA Status: Acute Comment: Clinically improving (3) Diastolic CHF Code(s): I50.30 - UNSPECIFIED DIASTOLIC (CONGESTIVE) HEART FAILURE Status: Acute Qualifiers: Heart failure chronicity: acute on chronic Qualified Code(s): I50.33 - Acute on chronic diastolic (congestive) heart failure Comment: Continue IV furosemide (4) COPD (chronic obstructive pulmonary disease) Status: Chronic Qualifiers: COPD type: COPD with acute exacerbation Qualified Code(s): J44.1 - Chronic obstructive pulmonary disease with (acute) exacerbation Comment: continue oxygen, bronchodilators (5) GERD (gastroesophageal reflux disease) Code(s): K21.9 - GASTRO-ESOPHAGEAL REFLUX DISEASE WITHOUT ESOPHAGITIS Status: Chronic (6) HLD (hyperlipidemia) Code(s): E78.5 - HYPERLIPIDEMIA, UNSPECIFIED Status: Chronic Comment: continue statin (7) HTN (hypertension) Code(s): I10 - ESSENTIAL (PRIMARY) HYPERTENSION Status: Chronic Comment: monitor vital signs - Plan * . Review of Systems - Review of Systems Constitutional: weakness. negative: fever, chills, sweats, malaise Respiratory: Shortness of Breath, SOB with Excertion. negative: Cough, Hemoptysis, Pleuritic Pain, Wheezing Cardiovascular: negative: chest pain, palpitations, orthopnea, paroxysmal nocturnal dyspnea, edema, light headedness Genitourinary: negative: Dysuria, Frequency, Incontinence, Hematuria, Retention Skin: negative: Rash, Lesions, Michael, Bruising - Medications/Allergies Allergies/Adverse Reactions: Allergies Allergy/AdvReac Type Severity Reaction Status Date / Time No Known Allergies Allergy Verified 10/20/17 02:15 Medications: Current Medications Acetaminophen (Tylenol) 650 mg PO Q4H PRN PRN Reason: temp/pain Albuterol/Ipratropium (Duoneb) 3 ml NEB [id number] [facility]BI Last Admin: 12/07/17 14:23 Dose: Not Given Amitriptyline HCl (Elavil) 25 mg PO HS [facility] Last Admin: 12/06/17 20:07 Dose: 25 mg Aspirin (Aspirin Chewable) 81 mg PO DAILY [facility] Last Admin: 12/07/17 09:30 Dose: 81 mg Atorvastatin Calcium (Lipitor) 20 mg PO HS [facility] Last Admin: 12/06/17 20:07 Dose: 20 mg Cholestyramine Resin (Questran Light) 4 gm PO DAILY [facility] Last Admin: 12/07/17 09:30 Dose: Not Given Clopidogrel Bisulfate (Plavix) 75 mg PO DAILY [facility] Last Admin: 12/07/17 09:30 Dose: 75 mg Diltiazem HCl (Cardizem) 10 mg SLOW IVP ONE [facility] Diphenhydramine HCl (Benadryl) 25 mg PO Q6H PRN PRN Reason: Itching Docusate Sodium (Colace) 100 mg PO BID [facility] Last Admin: 12/07/17 09:30 Dose: 100 mg Folic Acid (Folvite) 1 mg PO DAILY [facility] Furosemide (Lasix) 40 mg SLOW IVP 0600,1400 [facility] Last Admin: 12/07/17 13:17 Dose: 40 mg Gabapentin (Neurontin) 600 mg PO BID [facility] Last Admin: 12/07/17 09:30 Dose: 600 mg Guaifenesin/Dextromethorphan (Robitussin Dm) 10 ml PO Q6H PRN PRN Reason: Cough Heparin Sodium (Porcine) (Heparin) 5,000 units SC TID [facility] Last Admin: 12/07/17 15:19 Dose: Not Given Levofloxacin 750 mg/ Device 150 mls @ 100 mls/hr IVPB 1600 [facility] Diltiazem HCl 125 mg/ Sodium (Chloride) 125 mls @ 10 mls/hr IVPB INF [facility]; 10 MG /HR PRN Reason: Protocol Lactulose (Lactulose) 20 gm PO DAILYPRN PRN PRN Reason: Constipation Lorazepam (Ativan) 1 mg SLOW IVP Q4H PRN PRN Reason: Anxiety/Agitation Last Admin: 12/07/17 03:09 Dose: 1 mg Magnesium Hydroxide (Milk Of Magnesium) 30 ml PO DAILYPRN PRN PRN Reason: Constipation Metoprolol Tartrate (Lopressor) 25 mg PO BID [facility] Nystatin (Mycostatin Cream) 15 gm TOP BIDPRN PRN PRN Reason: rash to folds Ondansetron HCl (Zofran) 4 mg IVP Q6H PRN PRN Reason: Nausea/Vomiting Pantoprazole Sodium (Protonix) 40 mg PO DAILY [facility] Last Admin: 12/07/17 09:30 Dose: 40 mg Polyethylene Glycol (Miralax) 17 gm PO DAILY [facility] Last Admin: 12/07/17 09:38 Dose: Not Given Sodium Chloride (Flush - Normal Saline) 10 ml IVF Q12HR [facility] Last Admin: 12/07/17 09:25 Dose: 10 ml Sodium Chloride (Flush - Normal Saline) 10 ml IVF PRN PRN PRN Reason: Saline Flush
[2017-12-07] MEDS ORDERED: Metoprolol Tartrate 25 MG TAB PO SCH (18:15)
--- NOTE | 2017-12-07 18:42 | PRG ---
DATE OF SERVICE: 12/07/2017 SUBJECTIVE: Ms. Araiza is undergoing dialysis. She developed what looks like atrial flutter with a rapid rate. She feels okay, just fatigued. No chest pain. OBJECTIVE: VITAL SIGNS: Blood pressure is 138/79; pulse 144, it is regular. LUNGS: Clear. CARDIAC: Normal S1, normal S2, just very tachycardic. ASSESSMENT: 1. Diastolic heart failure. 2. Renal failure. 3. Tachycardia, probably atrial flutter. PLAN: She is going to go back to the floor, where she is going to receive Cardizem and metoprolol. May consider atrial flutter ablation.
[2017-12-07] MEDS: Diltiazem 125 MG in Sodium Chloride 0.9% 100 ML IVPB SCH (18:44)
--- NOTE | 2017-12-07 19:17 | OP ---
PROCEDURE PERFORMED: Right femoral dialysis catheter placement. MEDICATION: 2% lidocaine. POCKET SETTER: Darryl Boo M.D. COMPLICATIONS: None. BLOOD LOSS: Insignificant. DETAILS OF PROCEDURE: After informed consent was obtained, the patient was prepped and draped in a s terile fashion. The right femoral dialysis catheter was used to change the right femoral central lesley e over a wire. Patient tolerated the procedure very well. Line is good for use to initiate hemodial ysis.
--- NOTE | 2017-12-07 19:24 | PRG ---
DATE OF SERVICE: 12/07/2017 SUBJECTIVE: The patient seen and examined. She was anxious, short of breath noted with the followin g vital signs. PHYSICAL EXAMINATION: VITAL SIGNS: Afebrile with temperature 98.2, pulse 138, respiratory rate 18, blood pressure 141/87. HEENT: Unremarkable. CARDIOVASCULAR: First and second heart sounds were heard. RESPIRATORY: Clear to auscultation. DIGESTIVE: Revealed a benign abdomen. EXTREMITIES: Showed lymphedema. NEUROLOGIC: Alert, very anxious. LYMPHATICS: No peripheral lymphadenopathy. LABORATORY INVESTIGATION: Showed potassium of 6.5. IMPRESSION: Severe hyperkalemia, query cause. The origin/the cause of this hyperkalemia still remai ns mystery. PLAN: 1. The patient has received maximal medical therapy, but still with persistent hyperkalemia. The ann chan now refusing more Kayexalate. We will arrange to dialyze this patient to address his potassium while you investigate into figure out the cause of this hyperkalemia in this patient with otherwise normal renal function. 2. Further management will be dependent on the clinical course. ADDENDUM: The patient does have severe anemia. A decision will be taken to transfuse this patient w ith 2 units of blood during dialysis today.
[2017-12-07] MEDS: Atorvastatin Calcium 20 MG TAB PO SCH (20:30)
[2017-12-07] MEDS: Amitriptyline HCl 25 MG TAB PO SCH (20:30)
[2017-12-08] MEDS: Furosemide 40 MG/4 ML VIAL SLOW IVP SCH ×2 (05:38→13:57)
[2017-12-08] MEDS: Diltiazem 125 MG in Sodium Chloride 0.9% 100 ML IVPB SCH (06:05)
[2017-12-08 07:55] LABS: Anion Gap 9 mmol/L (10-20); BUN (Urea Nitrogen) 16 mg/dL (9.8-20.1); Calc. Creatinine Clearance 98 mL/min (70-130); Calcium 8.6 mg/dL (7.8-10.44); Carbon Dioxide 34 mmol/L (23-31); Chloride 99 mmol/L (98-107); Estimated GFR-MDRD 75; Glucose 83 mg/dL (83-110); Potassium 4.7 mmol/L (3.5-5.1); Sodium 137 mmol/L (136-145)
[2017-12-08 07:56] LABS: #Lymphocytes 1.4 thou/uL (1.20-3.40); #Monocytes 0.6 thou/uL (0.11-0.59); #Neutrophils 3.6 thou/uL (1.40-6.50); %Eosinophils 0.4 % (0.0-10.0); %Lymphocytes 24.7 % (21.0-51.0); %Monocytes 10.4 % (0.0-10.0); %Neutrophils 64.5 % (42.0-75.0); Hemoglobin 8.8 g/dL (12.0-16.0); Mean Corpuscular HGB CONC 30.3 g/dL (32.0-36.0); Mean Corpuscular Hemoglobin 29.9 pg (27.0-31.0); Mean Corpuscular Volume 98.7 fl (81.0-99.0); Mean Platelet Volume 7.2 fL (7.4-10.4); Platelet Count 253 thou/uL (130-400); RBC Distribution Width 15.9 % (11.5-14.5); Red Blood Cell (RBC) Count 2.94 mill/uL (4.20-5.40); White Blood Cell (WBC) Count 5.6 thou/uL (4.8-10.8)
[2017-12-08] MEDS ORDERED: Amiodarone 200 MG TAB PO SCH ×2 (09:15)
--- NOTE | 2017-12-08 09:17 | PRG ---
DATE OF SERVICE: 12/08/2017 SUBJECTIVE: Ms. Araiza is sleeping this morning, but awakens to verbal stimuli. No chest pain or p ressure. Yesterday she had tachycardia. Some of it was atrial fibrillation, some look like sinus ta chycardia, but I think some of this was probably atrial flutter. The P waves are very small, but I t hink it looks like a lot of it was still flutter. She is on IV Cardizem now and oral beta blockers. PHYSICAL EXAMINATION: VITAL SIGNS: Blood pressure 120/60, pulse 80. LUNGS: Shallow breath sounds, but no rales. CARDIAC: Irregular. ABDOMEN: Soft, nontender. EXTREMITIES: No edema. ASSESSMENT: 1. End-stage renal disease. 2. Diastolic heart failure. 3. Paroxysmal atrial fibrillation. 4. Other tachycardia, some sinus tachycardia. Some looks like it is likely atrial flutter. 5. Do not resuscitate status with a poor prognosis. PLAN: 1. Beta blockers. 2. Stop Cardizem. It will likely exacerbate diastolic heart failure, long-term. 3. Add amiodarone. Prognosis is very poor. The patient is a very poor candidate for anticoagulation.
[2017-12-08] MEDS: Clopidogrel Bisulfate 75 MG TAB PO SCH (09:28)
[2017-12-08] MEDS: Gabapentin 300 MG CAP PO SCH ×2 (09:28→20:55)
[2017-12-08] MEDS: Metoprolol Tartrate 25 MG TAB PO SCH ×2 (09:28→20:56)
[2017-12-08] MEDS: Folic Acid 1 MG TAB PO SCH (09:28)
[2017-12-08] MEDS: Polyethylene Glycol 3350 17 GM Packet PO SCH (09:28)
[2017-12-08] MEDS: Cholestyramine/Aspartame 4 gm Packet PO SCH (09:29)
[2017-12-08] MEDS: Heparin 5,000 UNITS/ML VIAL SC SCH ×3 (09:29→20:55)
[2017-12-08] MEDS: Docusate 100 MG CAP PO SCH ×2 (09:29→20:57)
--- NOTE | 2017-12-08 09:53 | PRG ---
DATE OF SERVICE: 12/08/2017 The patient was seen and examined, seems to be doing much better. PHYSICAL EXAMINATION: VITAL SIGNS: Afebrile, temperature 98.1, pulse 83, respiratory rate 22, O2 sat 99%, blood pressure 1 21/59. Events of yesterday noted whereby patient slipped into atrial fibrillation after being in sinus tachy cardia. HEAD AND NECK: Unremarkable. CARDIOVASCULAR: First and second heart sounds were heard. RESPIRATORY: Reveals some scattered rhonchi. DIGESTIVE: Revealed an obese abdomen. EXTREMITIES: No peripheral edema. SKIN: No new gross rash. LYMPHATICS: No peripheral lymphadenopathy. LABORATORY INVESTIGATIONS: Showed hemoglobin 8.8. Chemistry showed a potassium of 4.7. IMPRESSION: 1. Severe hyperkalemia, query cause, resolved, now status post 1 session of dialysis. 2. Atrial fibrillation on Cardizem drip. PLAN: 1. We will observe this patient's electrolytes today and reevaluate tomorrow. 2. If potassium remains within normal range we will discontinue dialysis and remove the femoral dial ysis catheter if not needed anymore. 3. Further management to be dependent on the clinical course.
--- NOTE | 2017-12-08 10:18 | PDOC.PN ---
- Subjective Encounter Start Date: 12/08/17 Encounter Start Time: 07:00 Pt seen for followup re: atrial flutter. Denies chest pain or shortness of breath. - Objective MAR Reviewed: Yes Vital Signs & Weight: Vital Signs (12 hours) Temp Pulse Resp BP Pulse Ox 12/08/17 08:38 99 12/08/17 07:45 83 22 H 99 12/08/17 07:34 98.1 F 85 20 121/59 L 100 12/08/17 05:00 98.4 F 85 20 118/50 L 100 12/08/17 00:00 98.1 F 98 20 95/49 L 100 Weight Weight 238 lb 1.6 oz Most Recent Monitor Data Heart Rate from ECG 93 NIBP 115/61 NIBP BP-Mean 82 Respiration from ECG 21 SpO2 98 I&O: 12/07/17 12/08/17 12/09/17 06:59 06:59 06:59 Intake Total 200 1431 Output Total 4970 2850 Balance -6724 -6840 Result Diagrams: 12/08/17 03:30 12/08/17 06:30 EKG Reviewed by me: Yes (Tele: NSR with PACs) Phys Exam - Physical Examination Morbid obesity HEENT: PERRLA, moist MMs, sclera anicteric, oral pharynx no lesions Neck: no nodes, no JVD, supple, full ROM Respiratory: no wheezing, no rhonchi Frederick crackles Cardiovascular: no rub, irregular Gastrointestinal: soft, non-tender, positive bowel sounds distended Musculoskeletal: edema present Neurological: moves all 4 limbs Psychiatric: normal affect Dx/Plan (1) Atrial flutter Code(s): I48.92 - UNSPECIFIED ATRIAL FLUTTER Status: Acute Comment: continue beta blockers, amiodarone (2) Acute and chronic respiratory failure with hypoxia Code(s): J96.21 - ACUTE AND CHRONIC RESPIRATORY FAILURE WITH HYPOXIA Status: Acute Comment: improving (3) Diastolic CHF Code(s): I50.30 - UNSPECIFIED DIASTOLIC (CONGESTIVE) HEART FAILURE Status: Acute Qualifiers: Heart failure chronicity: acute on chronic Qualified Code(s): I50.33 - Acute on chronic diastolic (congestive) heart failure Comment: Continue IV lasix (4) COPD (chronic obstructive pulmonary disease) Status: Chronic Qualifiers: COPD type: COPD with acute exacerbation Qualified Code(s): J44.1 - Chronic obstructive pulmonary disease with (acute) exacerbation Comment: continue oxygen, bronchodilators (5) GERD (gastroesophageal reflux disease) Code(s): K21.9 - GASTRO-ESOPHAGEAL REFLUX DISEASE WITHOUT ESOPHAGITIS Status: Chronic Comment: stable (6) HLD (hyperlipidemia) Code(s): E78.5 - HYPERLIPIDEMIA, UNSPECIFIED Status: Chronic Comment: continue statin (7) HTN (hypertension) Code(s): I10 - ESSENTIAL (PRIMARY) HYPERTENSION Status: Chronic Comment: monitor vital signs (8) Hyperkalemia Code(s): E87.5 - HYPERKALEMIA Status: Resolved Comment: had dialysis yesterday - Plan * . Review of Systems - Review of Systems Constitutional: negative: fever, chills, sweats, weakness, malaise Respiratory: negative: Cough, Shortness of Breath, Hemoptysis, SOB with Excertion, Pleuritic Pain, Wheezing Cardiovascular: negative: chest pain, palpitations, orthopnea, paroxysmal nocturnal dyspnea, edema, light headedness Gastrointestinal: negative: Nausea, Vomiting, Abdominal Pain, Diarrhea, Constipation, Melena, Hematochezia Genitourinary: negative: Dysuria, Frequency, Incontinence, Hematuria, Retention - Medications/Allergies Allergies/Adverse Reactions: Allergies Allergy/AdvReac Type Severity Reaction Status Date / Time No Known Allergies Allergy Verified 10/20/17 02:15 Medications: Current Medications Acetaminophen (Tylenol) 650 mg PO Q4H PRN PRN Reason: temp/pain Last Admin: 12/08/17 13:57 Dose: 650 mg Albuterol/Ipratropium (Duoneb) 3 ml NEB [id number] [facility] Last Admin: 12/08/17 14:49 Dose: 3 ml Amiodarone HCl (Cordarone) 400 mg PO TID [facility] Last Admin: 12/08/17 13:57 Dose: 400 mg Amitriptyline HCl (Elavil) 25 mg PO HS [facility] Last Admin: 12/07/17 20:30 Dose: 25 mg Aspirin (Aspirin Chewable) 81 mg PO DAILY [facility] Last Admin: 12/08/17 09:29 Dose: 81 mg Atorvastatin Calcium (Lipitor) 20 mg PO HS [facility] Last Admin: 12/07/17 20:30 Dose: 20 mg Cholestyramine Resin (Questran Light) 4 gm PO DAILY [facility] Last Admin: 04/12/18 09:29 Dose: Not Given Clopidogrel Bisulfate (Plavix) 75 mg PO DAILY [facility] Last Admin: 12/08/17 09:28 Dose: 75 mg Diphenhydramine HCl (Benadryl) 25 mg PO Q6H PRN PRN Reason: Itching Docusate Sodium (Colace) 100 mg PO BID [facility] Last Admin: 12/08/17 09:29 Dose: Not Given Folic Acid (Folvite) 1 mg PO DAILY [facility] Last Admin: 12/08/17 09:28 Dose: 1 mg Furosemide (Lasix) 40 mg SLOW IVP 0600,1400 [facility] Last Admin: 12/08/17 13:57 Dose: 40 mg Gabapentin (Neurontin) 600 mg PO BID [facility] Last Admin: 12/08/17 09:28 Dose: 600 mg Guaifenesin/Dextromethorphan (Robitussin Dm) 10 ml PO Q6H PRN PRN Reason: Cough Heparin Sodium (Porcine) (Heparin) 5,000 units SC TID [facility] Last Admin: 12/08/17 13:57 Dose: 5,000 units Levofloxacin 750 mg/ Device 150 mls @ 100 mls/hr IVPB 1600 [facility] Last Admin: 12/08/17 16:38 Dose: 150 mls Lactulose (Lactulose) 20 gm PO DAILYPRN PRN PRN Reason: Constipation Lorazepam (Ativan) 1 mg SLOW IVP Q4H PRN PRN Reason: Anxiety/Agitation Last Admin: 12/07/17 03:09 Dose: 1 mg Magnesium Hydroxide (Milk Of Magnesium) 30 ml PO DAILYPRN PRN PRN Reason: Constipation Metoprolol Tartrate (Lopressor) 25 mg PO BID [facility] Last Admin: 12/08/17 09:28 Dose: 25 mg Nystatin (Mycostatin Cream) 15 gm TOP BIDPRN PRN PRN Reason: rash to folds Ondansetron HCl (Zofran) 4 mg IVP Q6H PRN PRN Reason: Nausea/Vomiting Pantoprazole Sodium (Protonix) 40 mg PO DAILY [facility] Last Admin: 12/08/17 09:29 Dose: 40 mg Polyethylene Glycol (Miralax) 17 gm PO DAILY [facility] Last Admin: 12/08/17 09:28 Dose: 17 gm Sodium Chloride (Flush - Normal Saline) 10 ml IVF Q12HR [facility] Last Admin: 12/08/17 09:29 Dose: 10 ml Sodium Chloride (Flush - Normal Saline) 10 ml IVF PRN PRN PRN Reason: Saline Flush Last Admin: 12/08/17 05:38 Dose: 10 ml
[2017-12-08] MEDS: Acetaminophen 325 MG TAB PO PRN ×2 (13:57→18:35)
[2017-12-08] MEDS: Amiodarone 200 MG TAB PO SCH ×2 (13:57→20:56)
--- NOTE | 2017-12-08 20:09 | PRG ---
DATE OF SERVICE: 12/08/2017 SERVICE: Pulmonary Medicine. INTERVAL HISTORY: The patient is doing outstanding from a respiratory standpoint. She denies any ch est pain or fevers or chills. She is breathing comfortably. She is on 2 liters nasal cannula which is what she wears at home. Otherwise, there has been no interval change to her condition. PHYSICAL EXAMINATION: VITAL SIGNS: Afebrile, pulse 79, blood pressure 122/66, respirations 19, saturation 100% on 4 liters nasal cannula. GENERAL: The patient is awake, alert, in no apparent distress. LUNGS: Decent air entry. Minimal dependent crackles are present. No prolonged expiratory phase or wheezing is appreciated. HEART: Normal rate, regular. ABDOMEN: Soft, nontender, nondistended. Bowel sounds are positive. MUSCULOSKELETAL: No cyanosis or clubbing. There is trace pitting in the bilateral lower extremities . NEUROLOGIC: Grossly nonfocal. LABORATORY DATA: WBC 5.6, hemoglobin 8.8 and stable, platelets 253,000. Potassium 4.7 and beautiful ly down trending. Basic metabolic profile is otherwise unremarkable. Phosphorus 4.9, uric acid 7.4. Blood cultures x2 and urine culture remain unremarkable. Echocardiogram demonstrates ejection fraction 55-60%. Diastolic dysfunction is present. Left atrium is mildly dilated. ASSESSMENT: 1. Macrocytic anemia. 2. Hyperkalemia, resolved. 3. Acute on chronic hypoxic respiratory failure, resolved to baseline. 4. Acute on chronic diastolic heart failure (3/3). 5. History of stroke. 6. Obstructive sleep apnea. DISCUSSION AND PLAN: From my perspective, the patient is stable for transition home. Pulmonary Crit ical Care will continue to follow if she remains in the IMCU, but when she goes to the floor, I will sign off. Please call with additional questions or concerns moving forward. We will repeat her pota ssium tomorrow morning to make certain she is not continuing to trend upward.
[2017-12-08] MEDS: Atorvastatin Calcium 20 MG TAB PO SCH (20:56)
[2017-12-08] MEDS: Amitriptyline HCl 25 MG TAB PO SCH (20:57)
[2017-12-09] MEDS: Furosemide 40 MG/4 ML VIAL SLOW IVP SCH ×2 (05:50→15:04)
[2017-12-09 06:06] LABS: #Eosinphils 0.1 thou/uL (0.0-0.7); #Lymphocytes 1.6 thou/uL (1.20-3.40); #Monocytes 0.6 thou/uL (0.11-0.59); #Neutrophils 4.2 thou/uL (1.40-6.50); %Basophils 0.3 % (0.0-1.0); %Eosinophils 1.5 % (0.0-10.0); %Lymphocytes 23.7 % (21.0-51.0); %Monocytes 9.7 % (0.0-10.0); %Neutrophils 64.8 % (42.0-75.0); Hemoglobin 8.7 g/dL (12.0-16.0); Mean Corpuscular Hemoglobin 29.9 pg (27.0-31.0); Mean Corpuscular Volume 96.3 fl (81.0-99.0); Mean Platelet Volume 6.6 fL (7.4-10.4); Platelet Count 247 thou/uL (130-400); RBC Distribution Width 15.3 % (11.5-14.5); Red Blood Cell (RBC) Count 2.91 mill/uL (4.20-5.40); White Blood Cell (WBC) Count 6.5 thou/uL (4.8-10.8)
[2017-12-09 06:34] LABS: Anion Gap 5 mmol/L (10-20); BUN (Urea Nitrogen) 24 mg/dL (9.8-20.1); Calc. Creatinine Clearance 94 mL/min (70-130); Calcium 8.3 mg/dL (7.8-10.44); Carbon Dioxide 37 mmol/L (23-31); Chloride 98 mmol/L (98-107); Estimated GFR-MDRD 71; Glucose 99 mg/dL (83-110); Potassium 4.5 mmol/L (3.5-5.1); Sodium 135 mmol/L (136-145)
--- NOTE | 2017-12-09 07:15 | EKG ---
Test Reason : Blood Pressure : / mmHG Vent. Rate : 146 BPM Atrial Rate : 146 BPM P-R Int : 000 ms QRS Dur : 080 ms QT Int : 298 ms P-R-T Axes : 000 -01 064 degrees QTc Int : 464 ms Poor data quality, interpretation may be adversely affected Sinus tachycardia Premature atrial complexes Possible Anterior infarct , age undetermined Abnormal ECG Confirmed by NAKIA GUNTER ([id number]) on 12/09/2017 7:14:51 AM Referred By: SUNNY Confirmed By:NAKIA GUNTER
[2017-12-09] MEDS: Amiodarone 200 MG TAB PO SCH ×3 (08:12→20:09)
[2017-12-09] MEDS: Folic Acid 1 MG TAB PO SCH (08:13)
[2017-12-09] MEDS: Clopidogrel Bisulfate 75 MG TAB PO SCH (08:13)
[2017-12-09] MEDS: Heparin 5,000 UNITS/ML VIAL SC SCH ×3 (08:13→20:10)
[2017-12-09] MEDS: Docusate 100 MG CAP PO SCH ×2 (08:13→20:09)
[2017-12-09] MEDS: Gabapentin 300 MG CAP PO SCH ×2 (08:13→20:08)
[2017-12-09] MEDS: Metoprolol Tartrate 25 MG TAB PO SCH ×2 (08:13→20:09)
[2017-12-09] MEDS: Polyethylene Glycol 3350 17 GM Packet PO SCH (08:13)
[2017-12-09] MEDS: Cholestyramine/Aspartame 4 gm Packet PO SCH (08:14)
--- NOTE | 2017-12-09 09:08 | PRG ---
DATE OF SERVICE: 12/09/2017 Ms. Araiza feels fine. No complaints. She is overall doing better. PHYSICAL EXAMINATION: VITAL SIGNS: Blood pressure is 108/69, pulse 86 regular. LUNGS: Clear. CARDIAC: Normal S1 and S2. ABDOMEN: Soft, nontender. EXTREMITIES: No edema. ASSESSMENT: 1. Paroxysmal atrial fibrillation, improving. 2. End-stage renal disease. 3. Chronic anemia. Hemoglobin was 7 on the 10th, it was 6.2 on the 11th. PLAN: 1. She is on amiodarone, reduce dose to 200 mg twice a day when she goes home. 2. Metoprolol, continue the same. 3. Very poor candidate for anticoagulation with renal failure and severe anemia.
[2017-12-09] MEDS: Acetaminophen 325 MG TAB PO PRN ×2 (10:58→18:00)
--- NOTE | 2017-12-09 12:27 | RAD ---
AP CHEST: History: Shortness of breath. Date: 12-09-17 Comparison: FINDINGS: AP chest demonstrates cardiomegaly. Ectasia of the aorta is seen. Pulmonary vascular congestion is se en. No evidence of effusions, pneumonia, or pneumothorax is seen. IMPRESSION: Cardiomegaly. Otherwise, unremarkable AP chest. POS: [facility]
[2017-12-09] MEDS ORDERED: Lidocaine 2% Jelly 30 GM TUBE TOP PRN (14:01)
--- NOTE | 2017-12-09 14:32 | PDOC.PN ---
- Subjective Encounter Start Date: 12/09/17 Encounter Start Time: 11:55 Subjective: pt up in bed no complains - Objective Vital Signs & Weight: Vital Signs (12 hours) Temp Pulse Resp BP BP Pulse Ox 12/09/17 14:13 79 16 12/09/17 11:38 98.6 F 69 21 H 112/66 100 12/09/17 10:55 82 16 12/09/17 09:11 99 12/09/17 09:09 79 16 12/09/17 07:33 98.1 F 87 19 100 12/09/17 07:09 98.1 F 87 19 108/69 100 12/09/17 04:19 98.2 F 83 18 130/64 99 12/09/17 02:43 83 16 100 Weight Weight 238 lb 6 oz Most Recent Monitor Data Heart Rate from ECG 93 NIBP 115/61 NIBP BP-Mean 82 Respiration from ECG 21 SpO2 98 I&O: 12/08/17 12/09/17 12/10/17 06:59 06:59 06:59 Intake Total 1431 1700 Output Total 2850 1675 Balance -1419 25 Result Diagrams: 12/09/17 05:50 12/09/17 05:50 Phys Exam - Physical Examination Neck: no nodes mild crackels noted to bilateral bases Cardiovascular: RRR, no significant murmur, no rub, gallop, irregular Gastrointestinal: soft, non-tender, no distention, positive bowel sounds pt has a right index finger lipoma which is painful to touch pt's right upper and lower ext flaccid Dx/Plan - Plan (1) Atrial flutter Code(s): I48.92 - UNSPECIFIED ATRIAL FLUTTER Status: Acute Comment: continue beta blockers, amiodarone (2) Acute and chronic respiratory failure with hypoxia Code(s): J96.21 - ACUTE AND CHRONIC RESPIRATORY FAILURE WITH HYPOXIA Status: Acute Comment: improving (3) Diastolic CHF Code(s): I50.30 - UNSPECIFIED DIASTOLIC (CONGESTIVE) HEART FAILURE Status: Acute Qualifiers: Heart failure chronicity: acute on chronic Qualified Code(s): I50.33 - Acute on chronic diastolic (congestive) heart failure Comment: Continue IV lasix, repeat cxr improvement (4) COPD (chronic obstructive pulmonary disease) Status: Chronic Qualifiers: COPD type: COPD with acute exacerbation Qualified Code(s): J44.1 - Chronic obstructive pulmonary disease with (acute) exacerbation Comment: continue oxygen, bronchodilators (5) GERD (gastroesophageal reflux disease) Code(s): K21.9 - GASTRO-ESOPHAGEAL REFLUX DISEASE WITHOUT ESOPHAGITIS Status: Chronic Comment: stable (6) HLD (hyperlipidemia) Code(s): E78.5 - HYPERLIPIDEMIA, UNSPECIFIED Status: Chronic Comment: continue statin (7) HTN (hypertension) Code(s): I10 - ESSENTIAL (PRIMARY) HYPERTENSION Status: Chronic Comment: monitor vital signs (8) Hyperkalemia Code(s): E87.5 - HYPERKALEMIA Status: Resolved Comment: had dialysis yesterday,pt's K has improved. plan: possible discharge in am. right hand xray ordered for pain * . Review of Systems - Review of Systems ENT: negative: Ear Pain, Ear Discharge, Nose Pain, Nose Discharge, Nose Congestion, Mouth Pain, Mouth Swelling, Throat Pain, Throat Swelling, Other Respiratory: negative: Cough, Dry, Shortness of Breath, Hemoptysis, SOB with Excertion, Pleuritic Pain, Sputum, Wheezing Cardiovascular: negative: chest pain, palpitations, orthopnea, paroxysmal nocturnal dyspnea, edema, light headedness, other Gastrointestinal: negative: Nausea, Vomiting, Abdominal Pain, Diarrhea, Constipation, Melena, Hematochezia, Other Genitourinary: negative: Dysuria, Frequency, Incontinence, Hematuria, Retention , Other Musculoskeletal: Hand Pain - Medications/Allergies Allergies/Adverse Reactions: Allergies Allergy/AdvReac Type Severity Reaction Status Date / Time No Known Allergies Allergy Verified 10/20/17 02:15 Medications: Current Medications Acetaminophen (Tylenol) 650 mg PO Q4H PRN PRN Reason: temp/pain Last Admin: 12/09/17 10:58 Dose: 650 mg Albuterol/Ipratropium (Duoneb) 3 ml NEB [id number] Last Admin: 12/09/17 14:13 Dose: 3 ml Amiodarone HCl (Cordarone) 400 mg PO TID [facility] Last Admin: 12/09/17 08:12 Dose: 400 mg Amitriptyline HCl (Elavil) 25 mg PO HS [facility] Last Admin: 12/08/17 20:57 Dose: 25 mg Aspirin (Aspirin Chewable) 81 mg PO DAILY [facility] Last Admin: 12/09/17 08:12 Dose: 81 mg Atorvastatin Calcium (Lipitor) 20 mg PO HS [facility] Last Admin: 12/08/17 20:56 Dose: 20 mg Cholestyramine Resin (Questran Light) 4 gm PO DAILY [facility] Last Admin: 12/09/17 08:14 Dose: 4 gm Clopidogrel Bisulfate (Plavix) 75 mg PO DAILY [facility] Last Admin: 12/09/17 08:13 Dose: 75 mg Diphenhydramine HCl (Benadryl) 25 mg PO Q6H PRN PRN Reason: Itching Docusate Sodium (Colace) 100 mg PO BID [facility] Last Admin: 12/09/17 08:13 Dose: 100 mg Folic Acid (Folvite) 1 mg PO DAILY [facility] Last Admin: 12/09/17 08:13 Dose: 1 mg Furosemide (Lasix) 40 mg SLOW IVP 0600,1400 [facility] Last Admin: 12/09/17 05:50 Dose: 40 mg Gabapentin (Neurontin) 600 mg PO BID [facility] Last Admin: 12/09/17 08:13 Dose: 600 mg Guaifenesin/Dextromethorphan (Robitussin Dm) 10 ml PO Q6H PRN PRN Reason: Cough Heparin Sodium (Porcine) (Heparin) 5,000 units SC TID [facility] Last Admin: 12/09/17 08:13 Dose: 5,000 units Levofloxacin 750 mg/ Device 150 mls @ 100 mls/hr IVPB 1600 [facility] Last Admin: 12/08/17 16:38 Dose: 150 mls Lactulose (Lactulose) 20 gm PO DAILYPRN PRN PRN Reason: Constipation Lidocaine HCl (Xylocaine 2%) 0.1 gm TOP QID PRN PRN Reason: Pain Stop: 12/12/17 23:59 Lorazepam (Ativan) 1 mg SLOW IVP Q4H PRN PRN Reason: Anxiety/Agitation Last Admin: 12/07/17 03:09 Dose: 1 mg Magnesium Hydroxide (Milk Of Magnesium) 30 ml PO DAILYPRN PRN PRN Reason: Constipation Metoprolol Tartrate (Lopressor) 25 mg PO BID [facility] Last Admin: 12/09/17 08:13 Dose: 25 mg Nystatin (Mycostatin Cream) 15 gm TOP BIDPRN PRN PRN Reason: rash to folds Ondansetron HCl (Zofran) 4 mg IVP Q6H PRN PRN Reason: Nausea/Vomiting Pantoprazole Sodium (Protonix) 40 mg PO DAILY [facility] Last Admin: 12/09/17 08:13 Dose: 40 mg Polyethylene Glycol (Miralax) 17 gm PO DAILY [facility] Last Admin: 12/09/17 08:13 Dose: 17 gm Sodium Chloride (Flush - Normal Saline) 10 ml IVF Q12HR [facility] Last Admin: 12/09/17 08:14 Dose: 10 ml Sodium Chloride (Flush - Normal Saline) 10 ml IVF PRN PRN PRN Reason: Saline Flush Last Admin: 12/08/17 05:38 Dose: 10 ml
--- NOTE | 2017-12-09 14:49 | RAD ---
RADIOGRAPH RIGHT HAND 3 VIEWS: DATE: 12/09/17. TIME: 2:30 p.m. HISTORY: This is [id number] female with pain in the index finger. COMPARISON: 04/17/17. FINDINGS: Soft tissue swelling of all of the digits, hand, and wrist is again demonstrated. The severe, diffus e demineralization of the bones is also again demonstrated. There is anterior angulation of distal r adial epiphysis and metaphysis relative to the diaphysis, representing an old healed fracture deformi ty. No acute fracture is identified, but the severe osteopenia could mask a nondisplaced or mildly d isplaced fracture. There are mild to moderate degenerative changes, including first CMC, first MCP, and several DIPs. There is no significant interval change. IMPRESSION: 1. No acute fracture identified. 2. Severe, generalized osteopenia/osteoporosis. 3. Diffuse soft tissue edema. 4. Old, healed distal radial metaphyseal fracture deformity. 5. Mild to moderate osteoarthrosis. POS: [facility]
[2017-12-09] MEDS ORDERED: Lidocaine 2% Jelly 5 ML TUBE TOP PRN (14:58)
[2017-12-09] MEDS ORDERED: Magnesium 2 GM/NS 0.9% 100 ML 2 GM in Premix Bag 1 BAG IVPB SCH (17:45)
--- NOTE | 2017-12-09 18:07 | PRG ---
DATE OF SERVICE: 12/09/2017 SERVICE: Pulmonary Medicine. INTERVAL HISTORY: The patient is doing great from a respiratory standpoint. She denies any chest pa in, nausea, vomiting, fever or chills. Otherwise, there has been no interval change to her condition . OBJECTIVE: VITAL SIGNS: Afebrile, pulse 91, blood pressure 107/53, respirations 16, saturation 98% on 2 liters nasal cannula. GENERAL: The patient is awake, alert, in no apparent distress. LUNGS: Decent air entry with no prolonged expiratory phase, wheezing, rhonchi or crackles. HEART: Normal rate, regular. ABDOMEN: Soft, nontender, nondistended. Bowel sounds are positive. MUSCULOSKELETAL: No cyanosis or clubbing. No pitting in lower extremity. GENITOURINARY: No Sosa. NEUROLOGIC: Grossly nonfocal. LABORATORY: WBC 6.5, hemoglobin 8.7, platelets 247,000. Basic metabolic profile is otherwise unrema rkable. Bicarbonate 34. Urinalysis is unremarkable. Blood cultures x2 and urine cultures are all n egative. IMAGIN. Hand x-ray demonstrates no acute fracture. Generalized osteopenia/cirrhosis. Soft tissue edema of the hand is generalized. Old healed fracture. 2. Chest x-ray demonstrates cardiomegaly without acute cardiopulmonary abnormality. Minimal pulmona ry vascular congestion is identified, but chronic. ASSESSMENT: 1. Acute on chronic hypoxic respiratory failure, resolved to baseline. 2. Acute on chronic diastolic heart failure (3-3). 3. Hyperkalemia, resolved. 4. Macrocytic anemia. 5. History of stroke. 6. Obstructive sleep apnea, DISCUSSION AND PLAN: The patient there remains stable for transition out of the IMCU to the medical unit. From a purely respiratory perspective, she is back to baseline and can be considered for disch arge home. At this point, she has no further requirements for inpatient Pulmonary or Critical Care o leo. I will sign off. She will be transitioned out of the IMCU to the telemetry unit.
[2017-12-09] MEDS: Atorvastatin Calcium 20 MG TAB PO SCH (20:09)
[2017-12-09] MEDS: Amitriptyline HCl 25 MG TAB PO SCH (20:09)
--- NOTE | 2017-12-09 20:34 | PRG ---
DATE OF SERVICE: 12/09/2017 SUBJECTIVE: The patient is seen and examined, seems to be doing much better, very eager to go home. PHYSICAL EXAMINATION: VITAL SIGNS: Afebrile with temperature 98.4, pulse 91, respiratory rate 16, O2 sat 98% with blood pr essure 107/53. HEENT: Unremarkable with moist oral mucosa. NECK: Supple, no conjunctival injection or icterus. CARDIOVASCULAR: First and second heart sounds were heard. RESPIRATORY: Clear. DIGESTIVE: Revealed a benign abdomen with positive bowel sounds. EXTREMITIES: No peripheral edema. SKIN: No new gross rash. LYMPHATICS: No peripheral lymphadenopathy. IMPRESSION: 1. Severe hyperkalemia which has responded to dialysis. 2. Respiratory failure, on treatment. 3. Hypervolemia responding now to diuretics. PLAN: 1. The patient does not have any need for hemodialysis any longer. 2. From the renal standpoint, the patient is good for discharge and the femoral dialysis catheter ca n be discontinued if no longer needed for access.
[2017-12-10 04:53] LABS: #Eosinphils 0.4 thou/uL (0.0-0.7); #Lymphocytes 1.7 thou/uL (1.20-3.40); #Monocytes 0.7 thou/uL (0.11-0.59); #Neutrophils 5.9 thou/uL (1.40-6.50); %Basophils 0.2 % (0.0-1.0); %Eosinophils 4.3 % (0.0-10.0); %Lymphocytes 19.3 % (21.0-51.0); %Monocytes 8.1 % (0.0-10.0); %Neutrophils 68.2 % (42.0-75.0); Hemoglobin 8.8 g/dL (12.0-16.0); Mean Corpuscular HGB CONC 30.9 g/dL (32.0-36.0); Mean Corpuscular Hemoglobin 29.8 pg (27.0-31.0); Mean Corpuscular Volume 96.6 fl (81.0-99.0); Mean Platelet Volume 6.6 fL (7.4-10.4); Platelet Count 226 thou/uL (130-400); Red Blood Cell (RBC) Count 2.94 mill/uL (4.20-5.40); White Blood Cell (WBC) Count 8.7 thou/uL (4.8-10.8)
[2017-12-10 05:16] LABS: Anion Gap 9 mmol/L (10-20); BUN (Urea Nitrogen) 26 mg/dL (9.8-20.1); Calc. Creatinine Clearance 86 mL/min (70-130); Calcium 8.5 mg/dL (7.8-10.44); Carbon Dioxide 35 mmol/L (23-31); Chloride 96 mmol/L (98-107); Estimated GFR-MDRD 64; Glucose 113 mg/dL (83-110); Potassium 4.8 mmol/L (3.5-5.1); Sodium 135 mmol/L (136-145)
[2017-12-10] MEDS: Furosemide 40 MG/4 ML VIAL SLOW IVP SCH (05:29)
[2017-12-10] MEDS: Lorazepam 2 MG/ML VIAL SLOW IVP PRN (05:41)
[2017-12-10] MEDS: Gabapentin 300 MG CAP PO SCH (10:07)
[2017-12-10] MEDS: Docusate 100 MG CAP PO SCH (10:07)
[2017-12-10] MEDS: Clopidogrel Bisulfate 75 MG TAB PO SCH (10:07)
[2017-12-10] MEDS: Metoprolol Tartrate 25 MG TAB PO SCH (10:08)
[2017-12-10] MEDS: Polyethylene Glycol 3350 17 GM Packet PO SCH (10:08)
[2017-12-10] MEDS: Heparin 5,000 UNITS/ML VIAL SC SCH (10:08)
[2017-12-10] MEDS: Amiodarone 200 MG TAB PO SCH (10:08)
[2017-12-10] MEDS: Folic Acid 1 MG TAB PO SCH (10:08)
[2017-12-10] MEDS: Cholestyramine/Aspartame 4 gm Packet PO SCH (10:09)
[2017-12-10] MEDS: Acetaminophen 325 MG TAB PO PRN (12:26)
[2017-12-10 17:28] VITALS: BP 113/69; TEMP 98.9
--- NOTE | 2017-12-12 10:47 | DIS ---
DATE OF ADMISSION: 12/05/2017 DATE OF DISCHARGE: 12/10/2017 DISCHARGE DIAGNOSES: As followin. Atrial flutter. 2. Acute on chronic respiratory failure with hypoxia. 3. Diastolic heart failure. 4. Chronic obstructive pulmonary disease. HOSPITAL COURSE: The patient is a very pleasant 72-year-old female, who initially presented to the [facility] with complaints of shortness of breath from the long-term. The patient was found clinical ly to be in possible heart failure and was placed on BiPAP and also was put on IV diuretics. Pulmono logy and Cardiology were consulted on this patient. She underwent an echocardiogram on 12/07/2017, w [facility] indicated an EF of 55% to 60% and moderate annular calcification and trace tricuspid regurgitati on. The patient was found to have severe hyperkalemia and for that reason, Nephrology was consulted. She underwent dialysis for her refractory hyperkalemia. However, on discharge, her electrolytes we re normal and did not require any further dialysis. Continue to improve and was discharged. DISCHARGE MEDICATIONS: As the following: She was sent home with amiodarone 200 mg p.o. b.i.d., aspi rin 81 mg b.i.d., Plavix 75 mg daily, Lasix 40 mg daily, folic acid, Colace, gabapentin, metoprolol, nystatin, omeprazole, Zocor, Tylenol, and albuterol nebulizer p.r.n. PHYSICAL EXAMINATION: VITAL SIGNS: She is 99.0, 97% on 2 liters of nasal cannula, blood pressure was 122/65. GENERAL: She is awake, alert, oriented x3. Does not appear in any distress. CARDIOVASCULAR: S1, S2 present. No murmurs, rubs or gallops. ABDOMEN: Soft, nontender. Bowel sounds are present x2. DISCHARGE INSTRUCTIONS: The patient was discharged home. Follow up with PCP and Cardiology as outpa tient.
--- NOTE | 2017-12-21 10:37 | PQF ---
PADMINISUMANTH KARISHMA [id number] CLINICAL DOCUMENTATION CLARIFICATION FORM: POST DISCHARGE Addendum to original discharge summary date: ____ Late entry note date: __ DATE: 12/21/2017 ATTN: YVETTE KOEHLER Please exercise your independent, professional judgment in responding to the clarification form. Clinical indicators are provided on the bottom of this form for your review Please check appropriate box(s): Conflicting documentation was noted in the Medical Record, please clarify if patient is being treated/monitored for: [ x ] Hyperkalemia without chronic kidney disease. [ ] Hyperkalemia with End Stage Renal disease. [ ] Other diagnosis [ ] Unable to determine In addition, please specify: Present on Admission (POA): [ x ] Yes [ ] No [ ] Unable to determine For continuity of documentation, please document condition throughout progress notes and discharge summary. Thank You. CLINICAL INDICATORS - SIGNS / SYMPTOMS/ LABS Renal PN 12/09: Severe hyperkalemia, which has responded to dialysis.~ The pt does not have any need for hemodialysis any longer. From the renal standpoint, the pt is good for discharge & the femoral dialysis catheter can be discontinued if no longer needed for access. Cardiology PN 12/08: End-stage renal disease. RISK FACTORS Renal Consult: 12/06: History of present illness: Severely hyperkalemic with potassium of 8.6 The pt's renal function remains within normal range. TREATMENT PN 12/08: Severe hyperkalemia, query cause, resolved, now status post 1 session of dialysis. (This form is maintained as a part of the permanent medical record) 2014 [employer]. All Rights Reserved Rudolph [email or web address] [phone] VEENA
--- NOTE | 2018-02-11 14:45 | EKG ---
Test Reason : SOB Blood Pressure : / mmHG Vent. Rate : 079 BPM Atrial Rate : 087 BPM P-R Int : 000 ms QRS Dur : 108 ms QT Int : 390 ms P-R-T Axes : 000 000 055 degrees QTc Int : 447 ms Normal sinus rhythm Cannot rule out Anterior infarct , age undetermined Abnormal ECG Confirmed by GOGO FERRARO, SUSANA ([id number]), supervising film or videotape editor ESTELA GARCIA ([id number]) on 02/11/2018 2:44:27 PM Referred By: Confirmed By:SUSANA BOWENS MD
== END 2017-12-10 12:37 | DRG 291 ==
LOC: ERS 19:23 → CCU 23:18 → IMCU/EMU 12-07 10:59 → 2NO 12-09 19:11
PROVIDERS: ADMIT Internal Medicine; ATTEND Internal Medicine
PROC: 30233N1 Transfusion of Nonautologous Red Blood Cells into Peripheral Vein, Percutaneous Approach (ICD-10-PCS; principal; 2017-12-05)
PROC: 5A1D70Z Performance of Urinary Filtration, Intermittent, Less than 6 Hours Per Day (ICD-10-PCS; 2017-12-07)
PROC: 06HY33Z Insertion of Infusion Device into Lower Vein, Percutaneous Approach (ICD-10-PCS; 2017-12-07)
DX: I11.0 Hypertensive heart disease with heart failure (principal); J96.21 Acute and chronic respiratory failure with hypoxia; E87.5 Hyperkalemia; J96.22 Acute and chronic respiratory failure with hypercapnia; I48.92 Unspecified atrial flutter; J44.1 Chronic obstructive pulmonary disease with (acute) exacerbation; I69.351 Hemiplegia and hemiparesis following cerebral infarction affecting right dominant side; I50.43 Acute on chronic combined systolic (congestive) and diastolic (congestive) heart failure; I48.0 Paroxysmal atrial fibrillation; E66.01 Morbid (severe) obesity due to excess calories; K21.9 Gastro-esophageal reflux disease without esophagitis; E78.5 Hyperlipidemia, unspecified; F41.9 Anxiety disorder, unspecified; Z66 Do not resuscitate; Z86.19 Personal history of other infectious and parasitic diseases; F32.9 Major depressive disorder, single episode, unspecified; Z87.891 Personal history of nicotine dependence; G47.33 Obstructive sleep apnea (adult) (pediatric); D53.9 Nutritional anemia, unspecified; Z99.2 Dependence on renal dialysis
CPT/HCPCS: 36415; 36416; 36430; 36556; 51702; 71045; 80048; 80053; 81003; 82550; 82553; 83605; 83690; 83735; 83880; 84100; 84132; 84484; 84550; 85025; 85652; 86140; 86850; 86900; 86901; 87040; 87086; 87340; 90935; 93005; 93010; 93306; 93798; 94640; 94660; 96365; 96368; 96372; 96375; C1752; G0257; J1100; J1644; J1815; J1940; J1956; J2060; J2920; J3475; J7050; J7611; J7620; P9016

== ENCOUNTER 2018-02-20 14:38 | Inpatient (IN) | payer MEDICARE, MEDICAID ==
[2018-02-20 16:08] LABS: Analyzer IN Cardio ER; Puncture Site RRA
[2018-02-20 16:09] LABS: pH, Arterial 7.25 (7.35-7.45)
[2018-02-20 16:10] LABS: ALV-art Gradient 74.725 (0-20); Actual Bicarbonate (HCO3a) 38.2 mEq/L (22-28); Base Excess (BEa) 9.1 mEq/L (-2.0 to +3.0); CO2 Tension 89.7 mmHg (35.0-45.0); Hematocrit-ABG 32.9 % (36.0-47.0); Hemoglobin (Hb) 8.6 g/dL (12.0-16.0); O2 Tension (PaO2) 62.7 mmHg (> 70.0)
[2018-02-20] MEDS ORDERED: Lorazepam 2 MG/ML VIAL ONE (16:12)
[2018-02-20 17:00] LABS: CKMB 1.8 ng/mL (0-6.6); Troponin I 0.017 ng/mL (< 0.028)
[2018-02-20 17:07] LABS: Hemoglobin 9.3 g/dL (12.0-16.0); Mean Corpuscular HGB CONC 32.1 g/dL (32.0-36.0); Mean Corpuscular Hemoglobin 32.3 pg (27.0-31.0); Mean Platelet Volume 7.1 fL (7.4-10.4); Platelet Count 226 thou/uL (130-400); RBC Distribution Width 14.8 % (11.5-14.5); Red Blood Cell (RBC) Count 2.89 mill/uL (4.20-5.40); White Blood Cell (WBC) Count 18.4 thou/uL (4.8-10.8)
[2018-02-20 17:29] LABS: Anisocytosis SLIGHT = 6-15 cells (100X) (0-5/hpf); Band 27 % (5-11); Lymphocytes 4 % (21-51); MDiff Complete? YES; Monocytes 4 % (0-10); Neutrophil 65 % (42-75); PLT Morphology Comment Appears Adequate
--- NOTE | 2018-02-20 17:46 | RAD ---
RADIOGRAPH CHEST 1 VIEW: Date: 02/20/2018 Time: 4:41 p.m. HISTORY: A 72-year-old female with acute chest pain and dyspnea, with hypoxia. COMPARISON: 12/09/2017 FINDINGS: Cardiomegaly and diffuse pulmonary vascular engorgement, which appear slightly worse than on the prio r study. A new finding of dense opacification of the right lung base. Ectasia and tortuosity of the thoracic aorta. No pneumothorax. IMPRESSION: 1. Cardiomegaly and mild congestive heart failure. 2. Right basilar air space opacity with associated with pleural effusion. RACHELLE [] POS: [facility]
[2018-02-20] MEDS ORDERED: cefTRIAXone\\ROCEPHIN 2 GM VIAL ONE (17:54)
[2018-02-20] MEDS ORDERED: Furosemide 100 MG/10 ML VIAL ONE (17:54)
[2018-02-20 18:06] LABS: ALT (SGPT) 12 U/L (8-55); AST (SGOT) 21 U/L (5-34); Albumin 3.2 g/dL (3.4-4.8); Alkaline Phosphatase 164 U/L (40-150); Anion Gap 14 mmol/L (10-20); BUN (Urea Nitrogen) 14 mg/dL (9.8-20.1); Bilirubin, Total 0.4 mg/dL (0.2-1.2); Calc. Creatinine Clearance 0 mL/min (70-130); Carbon Dioxide 30 mmol/L (23-31); Chloride 99 mmol/L (98-107); Estimated GFR-MDRD Greater than 90; Globulin 4.4 g/dL (2.4-3.5); Glucose 128 mg/dL (83-110); Lipase Less than 4 U/L (8-78); Magnesium 1.8 mg/dL (1.6-2.6); Potassium 5.6 mmol/L (3.5-5.1); Protein, Total 7.6 g/dL (6.0-8.3); Sodium 137 mmol/L (136-145)
[2018-02-20 18:07] LABS: Bacteria/HPF None Seen HPF (None Seen); Bilirubin Negative (Negative); Blood, Urine Negative (Negative); Clarity CLEAR (Clear); Glucose, Urine (Dipstick) Negative (Negative); Leukocyte Trace (Negative); Nitrite Negative (Negative); Protein, Urine (Dipstick) Trace mg/dL (Neg-Trace); RBC/HPF None Seen HPF (0-3); Specific Gravity, Urine 1.019 (1.002-1.036); Squamous Epithelial None Seen HPF (0-3); Urobilinogen 0.2 mg/dL (0.2-1.0); WBC/HPF None Seen HPF (0-3)
[2018-02-20 18:10] LABS: Hyaline Casts/LPF 0-3 HYALINE CAST LPF (0-3 Hyaline); Manual Microscopic Reviewed? No Path Casts Seen; Pathc Cast-AUWi Flag 2.76 (0-2.49)
--- NOTE | 2018-02-20 19:10 | CT ---
CT HEAD WITHOUT CONTRAST: 02/20/2018 HISTORY: Altered mental status. Shortness of breath. COMPARISON: 10/19/2017 TECHNIQUE: Serial axial CT imaging at 5 mm intervals, from the vertex through the skull base, without contrast. FINDINGS: The imaged paranasal sinuses/mastoid air cells are well aerated. There is no displaced calvarial fra cture. There is atherosclerotic calcification of the cavernous carotid arteries. No intracranial he morrhage, midline shift, or mass effect. There is extensive periventricular, deep, and subcortical w ryann matter hypodensity, evidence of small vessel disease, stable. There is diffuse cerebral volume loss. Atherosclerotic calcification of the cavernous carotid arteries noted. IMPRESSION: Chronic findings, as described above, including significant diffuse small vessel disease. No intracr anial hemorrhage. If there is clinical concern for an acute infarction, follow-up brain MRI is [facility]. POS: [facility]
[2018-02-20] MEDS ORDERED: Acetaminophen 650 MG Suppository PR PRN ×2 (19:12→20:59)
[2018-02-20] MEDS ORDERED: Pepto Bismol Chew TAB PO PRN ×2 (19:12→21:00)
[2018-02-20] MEDS ORDERED: Ondansetron HCl/PF 4 MG/2 ML Vial IVP PRN ×2 (19:12→21:02)
[2018-02-20] MEDS ORDERED: diphenhydrAMINE 50 MG/ML VIAL IVP PRN (19:12)
[2018-02-20] MEDS ORDERED: hydrALAZINE 20 MG/ML VIAL SLOW IVP PRN ×2 (19:12→21:02)
[2018-02-20] MEDS ORDERED: Dextrose 50% Abboject 50 ML SYRINGE SLOW IVP PRN ×2 (19:25→21:03)
[2018-02-20] MEDS ORDERED: Dextrose 5% in Water 1,000 ML IV PRN ×2 (19:25→21:03)
[2018-02-20] MEDS ORDERED: HumaLOG 300 UNITS/3 ML VIAL SC PRN ×2 (19:25→21:04)
[2018-02-20] MEDS ORDERED: Metoprolol Tartrate 5 MG/5 ML VIAL IVP PRN ×2 (19:27→21:04)
[2018-02-20] MEDS ORDERED: Furosemide 40 MG/4 ML VIAL SLOW IVP SCH (19:45)
[2018-02-20] MEDS ORDERED: Azithromycin 500 MG in Sodium Chloride 0.9% 250 ML 250 ML IVPB SCH (20:00)
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
[2018-02-20] MEDS ORDERED: Vancomycin HCl 1.75 GM in Sodium Chloride 0.9% 500 ML IVPB SCH (21:00)
[2018-02-20] MEDS ORDERED: Famotidine/PF 20 mg/2ml Vial SLOW IVP SCH (21:00)
[2018-02-20 21:20] VITALS: BMI 43.0
--- NOTE | 2018-02-20 21:51 | CT ---
CT THORAX WITH CONTRAST: DATE: 02/20/2018 TIME: 8:33 p.m. HISTORY: A 72-year-old female with dyspnea. COMPARISON: CTA chest from 02/05/2011. TECHNIQUE: IV iodinated contrast media: Only a small amt of IV contrast was injected due to IV leak. Unable to start new IV. FINDINGS: Again demonstrated is the low density right thyroid nodule, expanding the right lobe of the thyroid g land. The right lobe of the thyroid gland is probably somewhat larger on the current CT, measuring a pproximately 3 x 2.5 cm. There is poor opacification of the thoracic aorta and the pulmonary arterie s due to leakage of IV contrast, mentioned in the technique. There is ectasia, tortuosity, and ather osclerotic calcification of the thoracic aorta, somewhat worse than on previous CT. There is heavy a therosclerotic calcification of all major coronary arteries, also worse since previous CT. There is cardiomegaly, worse since previous CT. Mild mediastinal lymphadenopathy. No pleural effusion or pne umothorax. There is consolidation of almost the entire right lower lobe and the entire right middle lobe, with extensive air bronchograms. No consolidation in the right upper lobe or the left lung. IMPRESSION: 1. Right lower lobe and right middle lobe consolidations: Pneumonia versus atelectasis. 2. Cardiomegaly. 3. Coronary atherosclerotic disease. RACHELLE Zhou POS: JARAD
[2018-02-20] MEDS: Vancomycin HCl 1 GM in Premix Bag 1 BAG IVPB SCH (22:13)
[2018-02-20] MEDS: Azithromycin 500 MG in Sodium Chloride 0.9% 250 ML 250 ML IVPB SCH (22:14)
[2018-02-20] MEDS ORDERED: Lorazepam 2 MG/ML VIAL SLOW IVP SCH (23:15)
[2018-02-21 00:29] LABS: Lactic Acid 1.2 mmol/L (0.5-2.2)
[2018-02-21 04:14] LABS: Actual Bicarbonate (HCO3a) 41.9 mEq/L (22-28); Base Excess (BEa) 13.6 mEq/L (-2.0 to +3.0); CO2 Tension 80.2 mmHg (35.0-45.0); O2 Tension (PaO2) 54.2 mmHg (> 70.0); pH, Arterial 7.34 (7.35-7.45)
[2018-02-21 04:15] LABS: Calcium, Ionized 1.2 mmol/L (1.12-1.30); Hemoglobin (Hb) 9.6 g/dL (12.0-16.0); Puncture Site RRA
[2018-02-21] MEDS: Vancomycin HCl 1 GM in Premix Bag 1 BAG IVPB SCH (04:23)
[2018-02-21] MEDS ORDERED: Enoxaparin Sodium 30 MG/0.3 ML SYRINGE SC SCH (09:00)
[2018-02-21] MEDS ORDERED: Prevnar 13-Val Conj/PF 0.5 ML SYRINGE IM ONE (09:00)
[2018-02-21] MEDS: Enoxaparin Sodium 30 MG/0.3 ML SYRINGE SC SCH (09:09)
[2018-02-21] MEDS: Famotidine/PF 20 mg/2ml Vial SLOW IVP SCH (10:59)
--- NOTE | 2018-02-21 12:06 | OP-2 ---
DATE OF PROCEDURE: 02/21/2018 Performing RESIDENT: Johnny Vazquez D.O. Performing ATTENDING PHYSICIAN: Dr. Sabino Freeman INDICATIONS: Lack of peripheral venous access with failed attempts of midline access. ULTRASOUND USED: Yes. CONSENT: Consent was obtained from Marissa Espinoza over the phone with 2 provider confirmation prior to the procedure. Indications, risks and benefits were explained at length. PROCEDURE SUMMARY: My hands were washed immediately prior to the procedure. I wore a surgical cap, mask with protective eyewear, sterile gown and sterile gloves throughout the procedure. The right inguinal region was prepped using chlorhexidine scrub and draped in sterile fashion using a 3/4 sheet drape. The femoral pulse was identified via palpation and the femoral vein and artery were identified with ultrasound. Anesthesia was achieved using 1% lidocaine 5 mL. With ultrasound guidance the introducer needle was inserted medial to the femoral artery, inferior to the inguinal crease and into the femoral vein. Venous blood was withdrawn. The syringe was removed and a guidewire was advanced into the introducer needle. A small incision was made at the skin surface with a scalpel and the introducer needle was exchanged for a dilator over the guidewire. After appropriate dilation was obtained, the dilator was exchanged over the wire for a triple-lumen central venous catheter. The wire was removed and the catheter was sutured in place. Placement confirmed with easy aspiration of blood in each port. Each port flushed with saline. A sterile SorbaView shield was placed over the catheter at the insertion site. The patient tolerated the procedure without any hemodynamic compromise. ESTIMATED BLOOD LOSS: Minimal. MTDD
--- NOTE | 2018-02-21 12:08 | PDOC.PN ---
- Subjective Encounter Start Date: 02/21/18 Encounter Start Time: 12:10 Subjective: Patient anxious and agitated overnight, refusing to wear BiPAP once she wok -: up from Ativan from last night. This AM sating ok on 2LNC, reports feeling -: a bit better. - Objective Resuscitation Status: Resuscitation Status DNR:Do Not Resuscitate MAR Reviewed: Yes Vital Signs & Weight: Vital Signs (12 hours) Temp Pulse Resp BP Pulse Ox 02/21/18 11:10 97.0 F L 82 24 H 113/72 99 02/21/18 07:41 98.4 F 95 30 H 160/71 H 97 02/21/18 04:01 97.4 F L 78 16 127/58 L 100 02/21/18 02:49 79 23 H 98 Weight Weight 230 lb 9.6 oz I&O: 02/20/18 02/21/18 02/22/18 06:59 06:59 06:59 Intake Total 125 Output Total 1925 Balance -1800 Result Diagrams: 02/20/18 16:55 02/21/18 13:14 Additional Labs: Accuchecks 02/21/18 02/21/18 02/21/18 10:51 08:05 04:16 POC Glucose 99 124 H 127 H Phys Exam - Physical Examination mild agitation HEENT: moist MMs decent breath sounds, mild increased WOB Cardiovascular: RRR, no significant murmur Gastrointestinal: soft, positive bowel sounds Neurological: non-focal Deviation from normal: anxious, poorly oriented, wants to go home Dx/Plan (1) Acute encephalopathy Code(s): G93.40 - ENCEPHALOPATHY, UNSPECIFIED Status: Acute (2) Acute on chronic respiratory failure with hypoxia and hypercapnia Code(s): J96.21 - ACUTE AND CHRONIC RESPIRATORY FAILURE WITH HYPOXIA; J96.22 - ACUTE AND CHRONIC RESPIRATORY FAILURE WITH HYPERCAPNIA Status: Acute (3) Sepsis Code(s): A41.9 - SEPSIS, UNSPECIFIED ORGANISM Status: Acute (4) Pneumonia involving right lung Code(s): J18.9 - PNEUMONIA, UNSPECIFIED ORGANISM Status: Acute Qualifiers: Lung location: lower lobe of lung (5) COPD (chronic obstructive pulmonary disease) Status: Acute Qualifiers: COPD type: COPD with acute exacerbation Qualified Code(s): J44.1 - Chronic obstructive pulmonary disease with (acute) exacerbation Comment: continue oxygen, bronchodilators (6) Atrial fibrillation and flutter Code(s): I48.91 - UNSPECIFIED ATRIAL FIBRILLATION; I48.92 - UNSPECIFIED ATRIAL FLUTTER Status: Chronic Comment: Continue home meds (7) Diastolic CHF Code(s): I50.30 - UNSPECIFIED DIASTOLIC (CONGESTIVE) HEART FAILURE Status: Chronic Qualifiers: Heart failure chronicity: chronic Qualified Code(s): I50.32 - Chronic diastolic (congestive) heart failure Comment: continue home Lasix (8) GERD (gastroesophageal reflux disease) Code(s): K21.9 - GASTRO-ESOPHAGEAL REFLUX DISEASE WITHOUT ESOPHAGITIS Status: Chronic Comment: stable (9) HLD (hyperlipidemia) Code(s): E78.5 - HYPERLIPIDEMIA, UNSPECIFIED Status: Chronic Comment: continue statin (10) HTN (hypertension) Code(s): I10 - ESSENTIAL (PRIMARY) HYPERTENSION Status: Chronic Comment: monitor vital signs (11) Hepatitis C Code(s): B19.20 - UNSPECIFIED VIRAL HEPATITIS C WITHOUT HEPATIC COMA Status: Chronic Qualifiers: Viral hepatitis chronicity: chronic Hepatic coma status: without hepatic coma Qualified Code(s): B18.2 - Chronic viral hepatitis C (12) GAIL (obstructive sleep apnea) Code(s): G47.33 - OBSTRUCTIVE SLEEP APNEA (ADULT) (PEDIATRIC) Status: Chronic (13) Hyperkalemia Code(s): E87.5 - HYPERKALEMIA Status: Acute Comment: Recheck - Plan cont current plan of care, continue antibiotics, respiratory therapy, DVT proph w/lovenox Patient family to meet with palliative care on . Patient stating -: she knows she will from her breathing problems but doesn't want -: BIPAP and doesn't mind dying. * . - Discharge Day Encounter end time: 12:20
[2018-02-21] MEDS: Lorazepam 2 MG/ML VIAL SLOW IVP PRN ×2 (12:35→18:04)
[2018-02-21 13:51] LABS: Anion Gap 11 mmol/L (10-20); BUN (Urea Nitrogen) 20 mg/dL (9.8-20.1); Calc. Creatinine Clearance 109 mL/min (70-130); Calcium 9.3 mg/dL (7.8-10.44); Carbon Dioxide 37 mmol/L (23-31); Chloride 96 mmol/L (98-107); Estimated GFR-MDRD 88; Glucose 100 mg/dL (83-110); Potassium 5.4 mmol/L (3.5-5.1); Sodium 139 mmol/L (136-145)
[2018-02-21] MEDS ORDERED: cefTRIAXone\\ROCEPHIN 2 GM in Sodium Chloride 0.9% 100 ML IVPB SCH (18:00)
[2018-02-21] MEDS: cefTRIAXone\\ROCEPHIN 2 GM in Sodium Chloride 0.9% 100 ML IVPB SCH (18:03)
[2018-02-21] MEDS: Azithromycin 500 MG in Sodium Chloride 0.9% 250 ML 250 ML IVPB SCH (20:58)
[2018-02-21] MEDS: Simvastatin 40 MG TAB PO SCH (20:58)
[2018-02-21] MEDS: Ferrous Sulfate 325 MG TAB PO SCH (20:58)
[2018-02-21] MEDS: Gabapentin 300 MG CAP PO SCH (20:58)
[2018-02-21] MEDS: Amiodarone 200 MG TAB PO SCH (20:58)
[2018-02-21] MEDS: Metoprolol Tartrate 25 MG TAB PO SCH (20:58)
[2018-02-21] MEDS: Vancomycin HCl 1.5 GM in Sodium Chloride 0.9% 250 ML 300 ML IVPB SCH (20:59)
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
[2018-02-22] MEDS: Lorazepam 2 MG/ML VIAL SLOW IVP PRN (01:16)
[2018-02-22] MEDS: Famotidine/PF 20 mg/2ml Vial SLOW IVP SCH ×3 (01:16→21:23)
[2018-02-22 04:39] LABS: BUN (Urea Nitrogen) 29 mg/dL (9.8-20.1); Calc. Creatinine Clearance 103 mL/min (70-130); Calcium 9.2 mg/dL (7.8-10.44); Estimated GFR-MDRD 82; Glucose 137 mg/dL (83-110)
[2018-02-22 04:48] LABS: Anion Gap 13 mmol/L (10-20); Carbon Dioxide 35 mmol/L (23-31); Chloride 98 mmol/L (98-107); Potassium 5.4 mmol/L (3.5-5.1); Sodium 141 mmol/L (136-145)
[2018-02-22 05:22] LABS: #Lymphocytes 0.4 thou/uL (1.20-3.40); #Monocytes 0.1 thou/uL (0.11-0.59); #Neutrophils 8.6 thou/uL (1.40-6.50); %Eosinophils 0.1 % (0.0-10.0); %Lymphocytes 4.5 % (21.0-51.0); %Monocytes 1.5 % (0.0-10.0); Hemoglobin 8.1 g/dL (12.0-16.0); Mean Corpuscular HGB CONC 29.8 g/dL (32.0-36.0); Mean Corpuscular Hemoglobin 30.8 pg (27.0-31.0); Platelet Count 278 thou/uL (130-400); RBC Distribution Width 14.6 % (11.5-14.5); Red Blood Cell (RBC) Count 2.62 mill/uL (4.20-5.40); White Blood Cell (WBC) Count 9.1 thou/uL (4.8-10.8)
[2018-02-22] MEDS ORDERED: Furosemide 40 MG TAB PO SCH (09:00)
[2018-02-22] MEDS: Enoxaparin Sodium 30 MG/0.3 ML SYRINGE SC SCH (09:28)
[2018-02-22] MEDS: Amitriptyline HCl 25 MG TAB PO SCH (12:24)
[2018-02-22] MEDS: ALPRAZolam 0.5 MG TAB PO SCH (12:24)
[2018-02-22] MEDS: Amiodarone 200 MG TAB PO SCH ×2 (12:24→20:50)
[2018-02-22] MEDS: Ferrous Sulfate 325 MG TAB PO SCH ×2 (12:25→20:49)
[2018-02-22] MEDS: Clopidogrel Bisulfate 75 MG TAB PO SCH (12:25)
[2018-02-22] MEDS: Cholestyramine/Aspartame 4 gm Packet PO SCH (12:25)
[2018-02-22] MEDS: Docusate 100 MG CAP PO SCH (12:25)
[2018-02-22] MEDS: Metoprolol Tartrate 25 MG TAB PO SCH ×2 (12:26→20:49)
[2018-02-22] MEDS: Gabapentin 300 MG CAP PO SCH ×2 (12:26→20:50)
[2018-02-22] MEDS: Lactinex Tablet PO SCH (12:26)
--- NOTE | 2018-02-22 13:15 | PDOC.PN ---
- Subjective Encounter Start Date: 02/22/18 Encounter Start Time: 13:50 Subjective: Patient on NC most of the AM. Back on Bipap while napping after lunch. -: Sleeping comfortably right now. - Objective Resuscitation Status: Resuscitation Status DNR:Do Not Resuscitate MAR Reviewed: Yes Vital Signs & Weight: Vital Signs (12 hours) Temp Pulse Resp BP Pulse Ox 02/22/18 11:49 97.0 F L 70 13 120/63 100 02/22/18 08:00 97.6 F 72 20 97 02/22/18 07:27 97.6 F 72 20 124/57 L 100 Weight Weight 230 lb 9.6 oz I&O: 02/21/18 02/22/18 02/23/18 06:59 06:59 06:59 Intake Total 125 102.5 799 Output Total 1925 250 325 Balance -1800 -147.5 474 Result Diagrams: 02/22/18 04:18 02/22/18 04:18 Additional Labs: Accuchecks 02/22/18 02/21/18 02/21/18 04:26 20:43 16:41 POC Glucose 146 H 127 H 118 H Phys Exam - Physical Examination Constitutional: NAD HEENT: moist MMs Respiratory: no wheezing, no rales, no rhonchi Cardiovascular: RRR Gastrointestinal: soft, positive bowel sounds Neurological: non-focal, moves all 4 limbs Deviation from normal: sleeping Dx/Plan (1) Acute encephalopathy Code(s): G93.40 - ENCEPHALOPATHY, UNSPECIFIED Status: Acute (2) Acute on chronic respiratory failure with hypoxia and hypercapnia Code(s): J96.21 - ACUTE AND CHRONIC RESPIRATORY FAILURE WITH HYPOXIA; J96.22 - ACUTE AND CHRONIC RESPIRATORY FAILURE WITH HYPERCAPNIA Status: Acute (3) Sepsis Code(s): A41.9 - SEPSIS, UNSPECIFIED ORGANISM Status: Resolved (4) Pneumonia involving right lung Code(s): J18.9 - PNEUMONIA, UNSPECIFIED ORGANISM Status: Acute Qualifiers: Lung location: lower lobe of lung Comment: On Rocephin, Azithromycin, and Vanc since 02/21/18 (5) COPD (chronic obstructive pulmonary disease) Status: Acute Qualifiers: COPD type: COPD with acute exacerbation Qualified Code(s): J44.1 - Chronic obstructive pulmonary disease with (acute) exacerbation Comment: continue oxygen, bronchodilators (6) Atrial fibrillation and flutter Code(s): I48.91 - UNSPECIFIED ATRIAL FIBRILLATION; I48.92 - UNSPECIFIED ATRIAL FLUTTER Status: Chronic Comment: Continue home meds (7) Diastolic CHF Code(s): I50.30 - UNSPECIFIED DIASTOLIC (CONGESTIVE) HEART FAILURE Status: Chronic Qualifiers: Heart failure chronicity: chronic Qualified Code(s): I50.32 - Chronic diastolic (congestive) heart failure Comment: continue home Lasix (8) GERD (gastroesophageal reflux disease) Code(s): K21.9 - GASTRO-ESOPHAGEAL REFLUX DISEASE WITHOUT ESOPHAGITIS Status: Chronic Comment: stable (9) HLD (hyperlipidemia) Code(s): E78.5 - HYPERLIPIDEMIA, UNSPECIFIED Status: Chronic Comment: continue statin (10) HTN (hypertension) Code(s): I10 - ESSENTIAL (PRIMARY) HYPERTENSION Status: Chronic Comment: monitor vital signs (11) Hepatitis C Code(s): B19.20 - UNSPECIFIED VIRAL HEPATITIS C WITHOUT HEPATIC COMA Status: Chronic Qualifiers: Viral hepatitis chronicity: chronic Hepatic coma status: without hepatic coma Qualified Code(s): B18.2 - Chronic viral hepatitis C (12) GAIL (obstructive sleep apnea) Code(s): G47.33 - OBSTRUCTIVE SLEEP APNEA (ADULT) (PEDIATRIC) Status: Chronic (13) Hyperkalemia Code(s): E87.5 - HYPERKALEMIA Status: Acute Comment: stable at 5.4 - Plan cont current plan of care, continue antibiotics, DVT proph w/lovenox, DVT proph w/SCDs Palliative care to have meeting with family tomorrow. * . - Discharge Day Encounter end time: 14:05
--- NOTE | 2018-02-22 13:33 | PRG ---
DATE OF SERVICE: 02/22/2018 PHYSICAL EXAMINATION: VITAL SIGNS: Darcy Araiza is afebrile, heart rate 72, respiratory rate is in the teens. She is radha k on BiPAP. She was placed on BiPAP, more for her hypoxemia than respiratory distress. Intake and output negative 147. LUNGS: Her lungs are remarkable for crackles at her right base. CARDIOVASCULAR: Regular rhythm. ABDOMEN: Soft. She appears comfortable at this time. LABORATORY: White count 9.1, hemoglobin 8.1, platelets 278. Sodium 141, potassium 5.4, chloride 90, bicarbonate 35, BUN 20, creatinine 0.83. IMPRESSION: 1. Pneumonia ? aspiration mediated. 2. Encephalopathy associated with pneumonia. 3. Borderline hyperkalemia. It is not high enough to need treatment, although if she ends up with n utritional supplements they should be low potassium supplements. I will decrease her steroid dose today. We will continue IV antimicrobial therapy. Microbiology has been reviewed. There are no blood cultu res, there are no positive urine cultures that have resulted. She should remain in the Intermediate Care Unit.
[2018-02-22] MEDS: cefTRIAXone\\ROCEPHIN 2 GM in Sodium Chloride 0.9% 100 ML IVPB SCH (17:44)
[2018-02-22] MEDS: Simvastatin 40 MG TAB PO SCH (20:49)
[2018-02-22] MEDS: Vancomycin HCl 1.5 GM in Sodium Chloride 0.9% 250 ML 300 ML IVPB SCH (21:01)
[2018-02-22] MEDS: Azithromycin 500 MG in Sodium Chloride 0.9% 250 ML 250 ML IVPB SCH (23:45)
[2018-02-23] MEDS: Lorazepam 2 MG/ML VIAL SLOW IVP PRN ×2 (01:43→21:10)
[2018-02-23 08:18] LABS: Hemoglobin 8.6 g/dL (12.0-16.0); Mean Corpuscular HGB CONC 30.2 g/dL (32.0-36.0); Mean Corpuscular Hemoglobin 30.9 pg (27.0-31.0); Mean Platelet Volume 6.8 fL (7.4-10.4); Platelet Count 264 thou/uL (130-400); RBC Distribution Width 14.3 % (11.5-14.5); Red Blood Cell (RBC) Count 2.78 mill/uL (4.20-5.40); White Blood Cell (WBC) Count 5.2 thou/uL (4.8-10.8)
[2018-02-23 08:36] LABS: BUN (Urea Nitrogen) 38 mg/dL (9.8-20.1); Calc. Creatinine Clearance 102 mL/min (70-130); Calcium 9.4 mg/dL (7.8-10.44); Estimated GFR-MDRD 81; Glucose 141 mg/dL (83-110)
[2018-02-23 08:45] LABS: Anion Gap 10 mmol/L (10-20); Carbon Dioxide 40 mmol/L (23-31); Chloride 99 mmol/L (98-107); Sodium 144 mmol/L (136-145)
[2018-02-23] MEDS: Furosemide 40 MG/4 ML VIAL SLOW IVP SCH (08:55)
[2018-02-23] MEDS: Famotidine/PF 20 mg/2ml Vial SLOW IVP SCH ×2 (08:55→20:59)
[2018-02-23] MEDS: Ferrous Sulfate 325 MG TAB PO SCH ×2 (08:55→21:00)
[2018-02-23] MEDS: Gabapentin 300 MG CAP PO SCH ×2 (08:56→20:59)
[2018-02-23] MEDS: Docusate 100 MG CAP PO SCH (08:56)
[2018-02-23] MEDS: ALPRAZolam 0.5 MG TAB PO SCH (08:56)
[2018-02-23] MEDS: Cholestyramine/Aspartame 4 gm Packet PO SCH (08:57)
[2018-02-23] MEDS: Amitriptyline HCl 25 MG TAB PO SCH (08:57)
[2018-02-23] MEDS: Metoprolol Tartrate 25 MG TAB PO SCH ×2 (08:57→21:00)
[2018-02-23] MEDS: Amiodarone 200 MG TAB PO SCH ×2 (08:57→21:00)
[2018-02-23] MEDS: Lactinex Tablet PO SCH (08:57)
[2018-02-23] MEDS: Clopidogrel Bisulfate 75 MG TAB PO SCH (08:57)
[2018-02-23] MEDS: Enoxaparin Sodium 30 MG/0.3 ML SYRINGE SC SCH (09:01)
[2018-02-23 09:15] LABS: Band 11 % (5-11); Hypochromia SLIGHT = 6-15 cells (100X) (0-5/hpf); Lymphocytes 6 % (21-51); MDiff Complete? YES; Monocytes 9 % (0-10); Neutrophil 73 % (42-75); PLT Morphology Comment Appears Adequate; Polychromasia SLIGHT = 2-3 cells (100X) (0-2/hpf); Reactive Lymphocytes 1 % (0-10)
--- NOTE | 2018-02-23 11:12 | PDOC.PN ---
- Subjective Encounter Start Date: 02/23/18 Encounter Start Time: 10:35 Subjective: more awake and talking this am per staff -: responds to verbal questions, has chronic dysarthria -: still sob, off bipap from this am, wants water/food - Objective Resuscitation Status: Resuscitation Status DNR:Do Not Resuscitate MAR Reviewed: Yes Vital Signs & Weight: Vital Signs (12 hours) Temp Pulse Resp BP Pulse Ox 02/23/18 08:00 97.7 F 72 22 H 100 02/23/18 07:40 97.7 F 72 22 H 158/82 H 97 02/23/18 04:00 97.8 F 62 16 109/48 L 100 02/23/18 02:02 62 26 H 100 02/23/18 00:00 97.4 F L 62 18 130/64 100 Weight Weight 232 lb 1.6 oz I&O: 02/22/18 02/23/18 02/24/18 06:59 06:59 06:59 Intake Total 102.5 1690.75 Output Total 250 1275 Balance -147.5 415.75 Result Diagrams: 02/23/18 08:08 02/23/18 08:08 Additional Labs: Accuchecks 02/23/18 02/23/18 02/22/18 10:39 05:17 23:52 POC Glucose 146 H 118 H 123 H 02/22/18 02/22/18 16:42 10:45 POC Glucose 116 H 132 H Phys Exam - Physical Examination HEENT: PERRLA, moist MMs Neck: no JVD, supple Respiratory: no wheezing rales+ Cardiovascular: RRR, no significant murmur Gastrointestinal: soft, positive bowel sounds Musculoskeletal: pulses present, edema present left LE more edematous than right Neurological: non-focal moves upper extre better Dx/Plan (1) Sepsis Code(s): A41.9 - SEPSIS, UNSPECIFIED ORGANISM Status: Acute Qualifiers: Sepsis type: sepsis due to unspecified organism Qualified Code(s): A41.9 - Sepsis, unspecified organism (2) PNA (pneumonia) Code(s): J18.9 - PNEUMONIA, UNSPECIFIED ORGANISM Status: Acute Qualifiers: Pneumonia type: due to unspecified organism (3) Acute encephalopathy Code(s): G93.40 - ENCEPHALOPATHY, UNSPECIFIED Status: Acute Comment: resolving, slowly getting to her baseline (4) Acute on chronic respiratory failure with hypoxia and hypercapnia Code(s): J96.21 - ACUTE AND CHRONIC RESPIRATORY FAILURE WITH HYPOXIA; J96.22 - ACUTE AND CHRONIC RESPIRATORY FAILURE WITH HYPERCAPNIA Status: Acute (5) COPD (chronic obstructive pulmonary disease) Status: Acute Qualifiers: COPD type: COPD with acute exacerbation Qualified Code(s): J44.1 - Chronic obstructive pulmonary disease with (acute) exacerbation Comment: continue oxygen, bronchodilators (6) Afib Code(s): I48.91 - UNSPECIFIED ATRIAL FIBRILLATION Status: Chronic Qualifiers: Atrial fibrillation type: chronic Qualified Code(s): I48.2 - Chronic atrial fibrillation (7) Diastolic CHF Code(s): I50.30 - UNSPECIFIED DIASTOLIC (CONGESTIVE) HEART FAILURE Status: Chronic Qualifiers: Heart failure chronicity: chronic Qualified Code(s): I50.32 - Chronic diastolic (congestive) heart failure (8) HLD (hyperlipidemia) Code(s): E78.5 - HYPERLIPIDEMIA, UNSPECIFIED Status: Chronic Qualifiers: Hyperlipidemia type: unspecified Qualified Code(s): E78.5 - Hyperlipidemia , unspecified Comment: continue statin (9) HTN (hypertension) Code(s): I10 - ESSENTIAL (PRIMARY) HYPERTENSION Status: Chronic Qualifiers: Hypertension type: essential hypertension Qualified Code(s): I10 - Essential (primary) hypertension Comment: monitor vital signs (10) Hepatitis C Code(s): B19.20 - UNSPECIFIED VIRAL HEPATITIS C WITHOUT HEPATIC COMA Status: Chronic Qualifiers: Viral hepatitis chronicity: chronic Hepatic coma status: without hepatic coma Qualified Code(s): B18.2 - Chronic viral hepatitis C (11) History of CVA with residual deficit Code(s): I69.30 - UNSPECIFIED SEQUELAE OF CEREBRAL INFARCTION Status: Chronic (12) Macrocytic anemia Code(s): D53.9 - NUTRITIONAL ANEMIA, UNSPECIFIED Status: Chronic - Plan is on zithromax, ceftriaxone and vanc. May dc vanc in am -: blood cs are -ve so far -: change lasix to daily, watch for renal function -: is DNR, resident of [facility], bed/wc bound, d/w daughter at bedside -: wbc down to 5 from 18k with 11% bands, likley from pna. * . Is cognitively gotten better per staff and daughter at bedside, has been responding well to antibiotics/supportive measures. to continue cpap at night for marnie, taper steroids from am (still sob, unclear baseline). amiodarone, asp, plavix and zocor. Suggest decrease amiodarone dose to qd on discharge due to lung issues. Review of Systems - Medications/Allergies Allergies/Adverse Reactions: Allergies Allergy/AdvReac Type Severity Reaction Status Date / Time No Known Allergies Allergy Verified 10/20/17 02:15 Medications: Current Medications Acetaminophen (Tylenol) 650 mg OK Q4H PRN PRN Reason: Headache/Fever or Mild Pain Acidophilus (Floranex) 1 tab PO DAILY [facility] Last Admin: 02/23/18 08:57 Dose: 1 tab Albuterol/Ipratropium (Duoneb) 3 ml NEB Q4H PRN PRN Reason: SOB &/or Wheezing Last Admin: 02/21/18 20:11 Dose: 3 ml Alprazolam (Xanax) 1 mg PO DAILY [facility] Last Admin: 02/23/18 08:56 Dose: 1 mg Amiodarone HCl (Cordarone) 200 mg PO BID [facility] Last Admin: 02/23/18 08:57 Dose: 200 mg Amitriptyline HCl (Elavil) 25 mg PO DAILY [facility] Last Admin: 02/23/18 08:57 Dose: 25 mg Aspirin (Aspirin Chewable) 81 mg PO DAILY [facility] Last Admin: 02/23/18 08:57 Dose: 81 mg Bismuth Subsalicylate (Pepto Bismol) 2 tab PO Q1H PRN PRN Reason: Diarrhea/Loose Stools Cholecalciferol (Vitamin D3) 1,000 units PO DAILY [facility] Last Admin: 02/23/18 08:56 Dose: 1,000 units Cholestyramine Resin (Questran Light) 1 gm PO DAILY [facility] Last Admin: 02/23/18 08:57 Dose: 1 gm Clopidogrel Bisulfate (Plavix) 75 mg PO DAILY [facility] Last Admin: 02/23/18 08:57 Dose: 75 mg Dextrose/Water (Dextrose 50%) 25 gm SLOW IVP PRN PRN PRN Reason: Hypoglycemia Diphenhydramine HCl (Benadryl) 25 mg IVP Q4H PRN PRN Reason: Itching Docusate Sodium (Colace) 100 mg PO DAILY [facility] Last Admin: 02/23/18 08:56 Dose: 100 mg Enoxaparin Sodium (Lovenox) 30 mg SC 0900 [facility] Last Admin: 02/23/18 09:01 Dose: 30 mg Famotidine (Pepcid) 20 mg SLOW IVP Q12HR [facility] Last Admin: 02/23/18 08:55 Dose: 20 mg Ferrous Sulfate (Feosol) 325 mg PO BID [facility] Last Admin: 02/23/18 08:55 Dose: 325 mg Furosemide (Lasix) 40 mg SLOW IVP DAILY [facility] Last Admin: 02/23/18 08:55 Dose: 40 mg Gabapentin (Neurontin) 600 mg PO BID [facility] Last Admin: 02/23/18 08:56 Dose: 600 mg Glucagon (Glucagon) 1 mg IM PRN PRN PRN Reason: Hypoglycemia Hydralazine HCl (Apresoline) 10 mg SLOW IVP Q4H PRN PRN Reason: Systolic BP > 180 Ceftriaxone Sodium 2 gm/ (Sodium Chloride) 100 mls @ 200 mls/hr IVPB 1800 [facility] Last Admin: 02/22/18 17:44 Dose: 100 mls Dextrose/Water (D5w) 1,000 mls @ 0 mls/hr IV .Q0M PRN; As Directed PRN Reason: Hypoglycemia Azithromycin 500 mg/ Sodium (Chloride) 250 mls @ 250 mls/hr IVPB 2200 [facility] Last Admin: 02/22/18 23:45 Dose: 250 mls Vancomycin HCl 1.5 gm/ Sodium (Chloride) 300 mls @ 200 mls/hr IVPB 2200 [facility] Last Admin: 02/22/18 21:01 Dose: 300 mls Insulin Human Lispro (Humalog) 0 units SC .MODERATE SLIDING SC PRN PRN Reason: Moderate Correctional Scale Lactulose (Lactulose) 30 gm PO BID [facility] Last Admin: 02/23/18 09:01 Dose: 30 gm Lorazepam (Ativan) 0.5 mg SLOW IVP Q6H PRN PRN Reason: Anxiety/Agitation Last Admin: 02/23/18 01:43 Dose: 0.5 mg Methylprednisolone Sodium Succinate (Solu-Medrol) 20 mg IVP 0300,0900,1500, 2100 [facility] Last Admin: 02/23/18 08:55 Dose: 20 mg Metoprolol Tartrate (Lopressor) 5 mg IVP Q6H PRN PRN Reason: SBP >180 or HR >110 Metoprolol Tartrate (Lopressor) 25 mg PO BID [facility] Last Admin: 02/23/18 08:57 Dose: 25 mg Miscellaneous Medication (Pharmacy To Dose) 1 each IVPB PRN PRN PRN Reason: PNA Ondansetron HCl (Zofran) 4 mg IVP Q6H PRN PRN Reason: Nausea/Vomiting Simvastatin (Zocor) 40 mg PO HS [facility] Last Admin: 02/22/18 20:49 Dose: 40 mg
--- NOTE | 2018-02-23 13:19 | RAD ---
CHEST 1 VIEW: COMPARISON: 02/20/18. HISTORY: Pneumonia. FINDINGS: Stable enlarged cardiac silhouette. The pulmonary vessels and hilum are normal. Persistent opacific ation right hemithorax with obscuration of the right heart border and right hemidiaphragm. No pneumo thorax or osseous abnormalities. IMPRESSION: Persistent opacification of the right hemithorax due to pleural and parenchymal changes. Continued s urveillance is recommended. POS: JARAD
[2018-02-23] MEDS: cefTRIAXone\\ROCEPHIN 2 GM in Sodium Chloride 0.9% 100 ML IVPB SCH (17:41)
--- NOTE | 2018-02-23 17:42 | PRG ---
DATE OF SERVICE: 02/23/2018 SUBJECTIVE: Ms. Canseco continues to intermittently require BiPAP. Repeated chest radiograph today, I do not see any dramatic change in her radiograph. She is hazy at her right base, which is where h er pneumonia is. The biggest problem I believe is retained secretions and her inability to successfully clear these se cretions secondary to weakness. OBJECTIVE: VITAL SIGNS: She is afebrile, heart rate 63, respiratory rate 19, blood pressure 152/69. LUNGS: Remarkable for rhonchi. HEART: Regular rhythm. ABDOMEN: Soft. EXTREMITIES: Without asymmetry. LABORATORY DATA: White count 5.2, hemoglobin 8.6, platelets 264. Sodium 144, potassium 5, chloride 99, bicarbonate 40, BUN 38, creatinine 0.84. IMPRESSION: 1. Respiratory failure, acute on chronic, secondary to pneumonia. 2. Probable aspiration pneumonia. 3. Deconditioning and inability to effectively clear secretions, requiring BiPAP. 4. DO NOT RESUSCITATE status. PLAN: Continue supportive care with antimicrobial therapy. She is probably a candidate at this poin t to switch to p.o. antimicrobial therapy. Palliative care is talking to her family about hospice.
[2018-02-23] MEDS: Simvastatin 40 MG TAB PO SCH (21:00)
[2018-02-23] MEDS: Azithromycin 500 MG in Sodium Chloride 0.9% 250 ML 250 ML IVPB SCH (21:01)
[2018-02-23 21:14] LABS: Vancomycin, Trough 15.1 ug/mL
[2018-02-23] MEDS: Vancomycin HCl 1.5 GM in Sodium Chloride 0.9% 250 ML 300 ML IVPB SCH (22:13)
[2018-02-23] MEDS: diphenhydrAMINE 50 MG/ML VIAL IVP PRN (23:05)
[2018-02-24] MEDS: ALPRAZolam 0.5 MG TAB PO SCH (09:52)
[2018-02-24] MEDS: Amiodarone 200 MG TAB PO SCH ×2 (09:52→21:22)
[2018-02-24] MEDS: Amitriptyline HCl 25 MG TAB PO SCH (09:52)
[2018-02-24] MEDS: Clopidogrel Bisulfate 75 MG TAB PO SCH (09:54)
[2018-02-24] MEDS: Cholestyramine/Aspartame 4 gm Packet PO SCH (09:54)
[2018-02-24] MEDS: Enoxaparin Sodium 30 MG/0.3 ML SYRINGE SC SCH (09:55)
[2018-02-24] MEDS: Lactinex Tablet PO SCH (09:56)
[2018-02-24] MEDS: Metoprolol Tartrate 25 MG TAB PO SCH ×2 (09:56→21:23)
[2018-02-24] MEDS: Ferrous Sulfate 325 MG TAB PO SCH ×2 (09:56→21:23)
[2018-02-24] MEDS: Gabapentin 300 MG CAP PO SCH ×2 (09:56→21:22)
[2018-02-24] MEDS: Docusate 100 MG CAP PO SCH (10:14)
--- NOTE | 2018-02-24 10:42 | PRG ---
DATE OF SERVICE: 02/24/2018 Mr. Araiza was off BiPAP all night last night. She is handling her secretions right now. She has a very shallow respiratory pattern. She has no new complaints vocalized. She is still intermittently confused. PHYSICAL EXAMINATION: VITAL SIGNS: She is afebrile, heart rate is 57, respiratory rate 16, oximetry is 95 on 4 liters, blo od pressure 96/73. LUNGS: Remarkable for distant breath sounds. CARDIOVASCULAR: Regular rhythm, no S3. ABDOMEN: Soft. She has a full abdomen, but is not tender. She had multiple bowel movements yesterd ay (5 I believe). I have asked the nurse to hold her lactulose. IMPRESSION: 1. Pneumonia. 2. Extreme deconditioning. 3. Do not resuscitate status. In my opinion, she is stable to move to a medical bed, discontinue BiPAP support, it is unlikely to c hange the outcome in my opinion.
[2018-02-24] MEDS: Furosemide 40 MG/4 ML VIAL SLOW IVP SCH (11:58)
[2018-02-24] MEDS: Famotidine/PF 20 mg/2ml Vial SLOW IVP SCH (11:58)
[2018-02-24] MEDS: Lorazepam 2 MG/ML VIAL SLOW IVP PRN ×2 (15:23→22:29)
[2018-02-24] MEDS: cefTRIAXone\\ROCEPHIN 2 GM in Sodium Chloride 0.9% 100 ML IVPB SCH (17:40)
--- NOTE | 2018-02-24 19:15 | PDOC.PN ---
- Subjective Encounter Start Date: 02/24/18 Encounter Start Time: 19:15 Subjective: f/u from sepsis of suspected PNA on current Zithromax, Rocephin and -: Vancomycin. Hospital day #4. Encephalopathic from sepsis with minimal -: improvement. Remains on O2 support. - Objective Resuscitation Status: Resuscitation Status DNR:Do Not Resuscitate MAR Reviewed: Yes Vital Signs & Weight: Vital Signs (12 hours) Temp Pulse Resp BP Pulse Ox 02/24/18 17:12 97.2 F L 57 L 16 95/55 L 100 02/24/18 15:57 60 24 H 89 L 02/24/18 15:50 96.1 F L 65 24 H 119/73 89 L 02/24/18 15:41 97.3 F L 68 22 H 134/64 90 L 02/24/18 11:21 96.7 F L 64 17 101/48 L 99 02/24/18 10:00 67 129/60 02/24/18 09:00 97.5 F L 67 16 98 02/24/18 07:37 97.5 F L 57 L 16 96/73 95 Weight Weight 232 lb 1.6 oz I&O: 02/23/18 02/24/18 02/25/18 06:59 06:59 06:59 Intake Total 1690.75 1505 Output Total 1275 1725 Balance 415.75 -220 Result Diagrams: 02/23/18 08:08 02/23/18 08:08 Additional Labs: Accuchecks 02/24/18 02/24/18 02/24/18 17:13 09:59 05:49 POC Glucose 143 H 134 H 139 H 02/23/18 21:59 POC Glucose 151 H Microbiology 02/20/18 17:50 Urine de la cruz catheter Urine Culture - Final NO GROWTH AT 48 HOURS 02/20/18 20:03 Venous blood - Left Hand Blood Culture - Preliminary NO GROWTH AT 48 HOURS 02/20/18 17:25 Venous blood - Left Hand Blood Culture - Preliminary NO GROWTH AT 48 HOURS Laboratory Tests 02/20/18 02/22/18 02/23/18 16:55 04:18 08:08 WBC 18.4 H 9.1 Hgb 9.3 L 8.1 L Band Neuts % (Manual) 27 H 11 Vancomycin Trough 02/23/18 20:52 WBC Hgb Band Neuts % (Manual) Vancomycin Trough 15.1 Radiology Reviewed by me: Yes (PCXR - persistent opacity R hemithorax) Phys Exam - Physical Examination agitated and yelling "no,no" HEENT: PERRLA, sclera anicteric, oral pharynx no lesions Neck: no nodes, no JVD, supple, full ROM scattered rhonchi on R Respiratory: no wheezing S1, S2 Cardiovascular: RRR, no significant murmur, no rub, gallop Gastrointestinal: soft, non-tender, no distention, positive bowel sounds LE's Musculoskeletal: pulses present, edema present moves UE's A x O x 1 Skin: no rash, normal turgor, cap refill <2 seconds Dx/Plan (1) Sepsis Code(s): A41.9 - SEPSIS, UNSPECIFIED ORGANISM Status: Acute Qualifiers: Sepsis type: sepsis due to unspecified organism Qualified Code(s): A41.9 - Sepsis, unspecified organism Comment: Improved with abx support to include Zithromax, Vancomycin and Rocephin , de-escalate coverage in 24h (2) Pneumonia involving right lung Code(s): J18.9 - PNEUMONIA, UNSPECIFIED ORGANISM Status: Acute Qualifiers: Lung location: lower lobe of lung Comment: On Rocephin, Azithromycin, and Vanc since 02/21/18, de-escalate coverage in 24h (3) Acute encephalopathy Code(s): G93.40 - ENCEPHALOPATHY, UNSPECIFIED Status: Acute Comment: approaching baseline (4) Acute on chronic respiratory failure with hypoxia and hypercapnia Code(s): J96.21 - ACUTE AND CHRONIC RESPIRATORY FAILURE WITH HYPOXIA; J96.22 - ACUTE AND CHRONIC RESPIRATORY FAILURE WITH HYPERCAPNIA Status: Acute Comment : Continue O2 @ 4L/min Mindy HALL (5) Macrocytic anemia Code(s): D53.9 - NUTRITIONAL ANEMIA, UNSPECIFIED Status: Chronic Comment: Stable currently, serial H/H monitoring - Plan continue antibiotics, PT/OT, social media project manager, speech therapy, respiratory therapy, DVT proph w/SCDs Stable currently -: Appears to be nearing baseline functional status -: De-escalate abx regimen in 24h -: Change Lasix 40mg po daily -: AM lab: BMP, CBC * Hospice Evaluation pending
[2018-02-24] MEDS: diphenhydrAMINE 50 MG/ML VIAL IVP PRN (21:20)
[2018-02-24] MEDS: Simvastatin 40 MG TAB PO SCH (21:23)
[2018-02-24] MEDS: Famotidine 20 MG TAB PO SCH (21:23)
[2018-02-24] MEDS: Vancomycin HCl 1.5 GM in Sodium Chloride 0.9% 250 ML 300 ML IVPB SCH (22:29)
[2018-02-25] MEDS: Azithromycin 500 MG in Sodium Chloride 0.9% 250 ML 250 ML IVPB SCH (01:07)
[2018-02-25] MEDS ORDERED: Lorazepam 0.5 MG TAB PO PRN ×2 (03:08→03:16)
[2018-02-25 05:01] LABS: Band 25 % (5-11); Hemoglobin 8.7 g/dL (12.0-16.0); Lymphocytes 6 % (21-51); MDiff Complete? YES; Mean Corpuscular HGB CONC 30.6 g/dL (32.0-36.0); Mean Corpuscular Hemoglobin 30.8 pg (27.0-31.0); Mean Platelet Volume 8.1 fL (7.4-10.4); Metamyelocyte 1 % (0-0); Neutrophil 68 % (42-75); PLT Morphology Comment Appears Adequate; Platelet Count 198 thou/uL (130-400); RBC Distribution Width 14.3 % (11.5-14.5); Red Blood Cell (RBC) Count 2.83 mill/uL (4.20-5.40); White Blood Cell (WBC) Count 7.3 thou/uL (4.8-10.8)
[2018-02-25] MEDS ORDERED: predniSONE 20 MG TAB PO SCH (06:00)
[2018-02-25 06:14] LABS: Calcium 9.1 mg/dL (7.8-10.44); Chloride 101 mmol/L (98-107); Potassium 4.8 mmol/L (3.5-5.1); Sodium 142 mmol/L (136-145)
[2018-02-25 06:15] LABS: Glucose 151 mg/dL (83-110)
[2018-02-25 06:16] LABS: Anion Gap 10 mmol/L (10-20); Carbon Dioxide 36 mmol/L (23-31)
[2018-02-25 06:18] LABS: Calc. Creatinine Clearance 96 mL/min (70-130); Estimated GFR-MDRD 76
[2018-02-25 06:19] LABS: BUN (Urea Nitrogen) 36 mg/dL (9.8-20.1)
[2018-02-25] MEDS ORDERED: Furosemide 40 MG TAB PO SCH (07:30)
[2018-02-25] MEDS: Gabapentin 300 MG CAP PO SCH (08:25)
[2018-02-25] MEDS: Lactinex Tablet PO SCH (08:25)
[2018-02-25] MEDS: Famotidine 20 MG TAB PO SCH (08:25)
[2018-02-25] MEDS: Clopidogrel Bisulfate 75 MG TAB PO SCH (08:25)
[2018-02-25] MEDS: Amiodarone 200 MG TAB PO SCH (08:25)
[2018-02-25] MEDS: Amitriptyline HCl 25 MG TAB PO SCH (08:26)
[2018-02-25] MEDS: Metoprolol Tartrate 25 MG TAB PO SCH (08:26)
[2018-02-25] MEDS: Docusate 100 MG CAP PO SCH (08:26)
[2018-02-25] MEDS: Ferrous Sulfate 325 MG TAB PO SCH (08:26)
[2018-02-25] MEDS: Cholestyramine/Aspartame 4 gm Packet PO SCH (08:27)
[2018-02-25 08:28] VITALS: BP 151/75; TEMP 97.9
[2018-02-25] MEDS: ALPRAZolam 0.5 MG TAB PO SCH (08:29)
[2018-02-25] MEDS ORDERED: Enoxaparin Sodium 40 MG/0.4 ML SYRINGE SC SCH (09:00)
--- NOTE | 2018-02-25 12:17 | PRG ---
DATE OF SERVICE: 02/25/2018 SUBJECTIVE: This morning, she is encephalopathic. She is a DNR. She denies difficulty breathing. OBJECTIVE: VITAL SIGNS: Sats 90% on 4 liters, respiration rate 18, temperature 97, pulse 74, blood pressure 151 /75. CHEST: Anterior rhonchi. CARDIAC: Normal S1, S2, regular. ABDOMEN: Obese. LABORATORY DATA: White count 10,000, H&H 9 and 27. Electrolytes are normal. IMPRESSION: Respiratory failure, pneumonia, DNR, obesity, encephalopathy. PLAN: Comfort care. Continue antibiotics, supportive care. She is on multiple antibiotics. Consid er deescalating since all cultures are negative.
--- NOTE | 2018-02-25 12:37 | PDOC.PN ---
- Subjective Encounter Start Date: 02/25/18 Encounter Start Time: 10:30 Subjective: this morning pt is confused and has spilled her breakfast all over her bed -: sob+ - Objective Resuscitation Status: Resuscitation Status DNR:Do Not Resuscitate MAR Reviewed: Yes Vital Signs & Weight: Vital Signs (12 hours) Temp Pulse Resp BP Pulse Ox 02/25/18 08:27 97.9 F 74 18 151/75 H 95 02/25/18 08:00 97.9 F 74 18 92 L 02/25/18 04:00 97.4 F L 74 24 H 147/76 H 85 L 02/25/18 02:41 70 16 100 Weight Weight 232 lb 1.6 oz I&O: 02/24/18 02/25/18 02/26/18 06:59 06:59 06:59 Intake Total 1505 665 240 Output Total 1725 Balance -220 665 240 Result Diagrams: 02/25/18 04:03 02/25/18 05:58 Additional Labs: Accuchecks 02/25/18 02/25/18 02/24/18 11:37 04:50 21:14 POC Glucose 243 H 178 H 150 H 02/24/18 02/24/18 17:13 05:49 POC Glucose 143 H 139 H Phys Exam - Physical Examination HEENT: PERRLA, moist MMs Neck: no JVD, supple Respiratory: no wheezing rhonchi++ Cardiovascular: RRR, no significant murmur Gastrointestinal: soft, non-tender, positive bowel sounds Musculoskeletal: pulses present, edema present Neurological: non-focal, moves all 4 limbs Dx/Plan (1) Sepsis Code(s): A41.9 - SEPSIS, UNSPECIFIED ORGANISM Status: Acute Qualifiers: Sepsis type: sepsis due to unspecified organism Qualified Code(s): A41.9 - Sepsis, unspecified organism (2) PNA (pneumonia) Code(s): J18.9 - PNEUMONIA, UNSPECIFIED ORGANISM Status: Acute Qualifiers: Pneumonia type: due to unspecified organism (3) Acute encephalopathy Code(s): G93.40 - ENCEPHALOPATHY, UNSPECIFIED Status: Acute (4) Acute on chronic respiratory failure with hypoxia and hypercapnia Code(s): J96.21 - ACUTE AND CHRONIC RESPIRATORY FAILURE WITH HYPOXIA; J96.22 - ACUTE AND CHRONIC RESPIRATORY FAILURE WITH HYPERCAPNIA Status: Acute (5) COPD (chronic obstructive pulmonary disease) Status: Acute Qualifiers: COPD type: COPD with acute exacerbation Qualified Code(s): J44.1 - Chronic obstructive pulmonary disease with (acute) exacerbation Comment: continue oxygen, bronchodilators (6) Afib Code(s): I48.91 - UNSPECIFIED ATRIAL FIBRILLATION Status: Chronic Qualifiers: Atrial fibrillation type: chronic Qualified Code(s): I48.2 - Chronic atrial fibrillation (7) Diastolic CHF Code(s): I50.30 - UNSPECIFIED DIASTOLIC (CONGESTIVE) HEART FAILURE Status: Chronic Qualifiers: Heart failure chronicity: chronic Qualified Code(s): I50.32 - Chronic diastolic (congestive) heart failure (8) HLD (hyperlipidemia) Code(s): E78.5 - HYPERLIPIDEMIA, UNSPECIFIED Status: Chronic Qualifiers: Hyperlipidemia type: unspecified Qualified Code(s): E78.5 - Hyperlipidemia , unspecified Comment: continue statin (9) HTN (hypertension) Code(s): I10 - ESSENTIAL (PRIMARY) HYPERTENSION Status: Chronic Qualifiers: Hypertension type: essential hypertension Qualified Code(s): I10 - Essential (primary) hypertension Comment: monitor vital signs (10) Hepatitis C Code(s): B19.20 - UNSPECIFIED VIRAL HEPATITIS C WITHOUT HEPATIC COMA Status: Chronic Qualifiers: Viral hepatitis chronicity: chronic Hepatic coma status: without hepatic coma Qualified Code(s): B18.2 - Chronic viral hepatitis C (11) History of CVA with residual deficit Code(s): I69.30 - UNSPECIFIED SEQUELAE OF CEREBRAL INFARCTION Status: Chronic (12) Macrocytic anemia Code(s): D53.9 - NUTRITIONAL ANEMIA, UNSPECIFIED Status: Chronic Comment: Stable currently, serial H/H monitoring - Plan continue ceftriaxone, may switch to omnicef in am -: off prednisone per pulm advice -: continue nebs, oxygen -: has advanced dementia, prognosis guarded -: is on amiodarone, asp, plavix and oral lasix * . Review of Systems - Medications/Allergies Allergies/Adverse Reactions: Allergies Allergy/AdvReac Type Severity Reaction Status Date / Time No Known Allergies Allergy Verified 10/20/17 02:15 Medications: Current Medications Acetaminophen (Tylenol) 650 mg ND Q4H PRN PRN Reason: Headache/Fever or Mild Pain Acidophilus (Floranex) 1 tab PO DAILY [facility] Last Admin: 02/25/18 08:25 Dose: 1 tab Albuterol/Ipratropium (Duoneb) 3 ml NEB Q4H PRN PRN Reason: SOB &/or Wheezing Last Admin: 02/25/18 02:41 Dose: 3 ml Alprazolam (Xanax) 1 mg PO DAILY [facility] Last Admin: 02/25/18 08:29 Dose: 1 mg Amiodarone HCl (Cordarone) 200 mg PO BID [facility] Last Admin: 02/25/18 08:25 Dose: 200 mg Amitriptyline HCl (Elavil) 25 mg PO DAILY [facility] Last Admin: 02/25/18 08:26 Dose: 25 mg Aspirin (Aspirin Chewable) 81 mg PO DAILY [facility] Last Admin: 02/25/18 08:25 Dose: 81 mg Bismuth Subsalicylate (Pepto Bismol) 2 tab PO Q1H PRN PRN Reason: Diarrhea/Loose Stools Cholecalciferol (Vitamin D3) 1,000 units PO DAILY [facility] Last Admin: 02/25/18 08:24 Dose: 1,000 units Cholestyramine Resin (Questran Light) 1 gm PO DAILY [facility] Last Admin: 02/25/18 08:27 Dose: 1 gm Clopidogrel Bisulfate (Plavix) 75 mg PO DAILY [facility] Last Admin: 02/25/18 08:25 Dose: 75 mg Dextrose/Water (Dextrose 50%) 25 gm SLOW IVP PRN PRN PRN Reason: Hypoglycemia Diphenhydramine HCl (Benadryl) 25 mg IVP Q4H PRN PRN Reason: Itching Last Admin: 02/24/18 21:20 Dose: 25 mg Docusate Sodium (Colace) 100 mg PO DAILY [facility] Last Admin: 02/25/18 08:26 Dose: 100 mg Enoxaparin Sodium (Lovenox) 40 mg SC 0900 [facility] Last Admin: 02/25/18 08:27 Dose: 40 mg Famotidine (Pepcid) 20 mg PO BID [facility] Last Admin: 02/25/18 08:25 Dose: 20 mg Ferrous Sulfate (Feosol) 325 mg PO BID [facility] Last Admin: 02/25/18 08:26 Dose: 325 mg Furosemide (Lasix) 40 mg PO DAILY-AC [facility] Last Admin: 02/25/18 08:26 Dose: 40 mg Gabapentin (Neurontin) 600 mg PO BID [facility] Last Admin: 02/25/18 08:25 Dose: 600 mg Glucagon (Glucagon) 1 mg IM PRN PRN PRN Reason: Hypoglycemia Hydralazine HCl (Apresoline) 10 mg SLOW IVP Q4H PRN PRN Reason: Systolic BP > 180 Ceftriaxone Sodium 2 gm/ (Sodium Chloride) 100 mls @ 200 mls/hr IVPB 1800 [facility] Last Admin: 02/24/18 17:40 Dose: 100 mls Dextrose/Water (D5w) 1,000 mls @ 0 mls/hr IV .Q0M PRN; As Directed PRN Reason: Hypoglycemia Insulin Human Lispro (Humalog) 0 units SC .MODERATE SLIDING SC PRN PRN Reason: Moderate Correctional Scale Lactulose (Lactulose) 30 gm PO BID [facility] Last Admin: 02/25/18 08:26 Dose: 30 gm Lorazepam (Ativan) 0.5 mg SLOW IVP Q6H PRN PRN Reason: Anxiety/Agitation Last Admin: 02/24/18 22:29 Dose: 0.5 mg Lorazepam (Ativan) 0.5 mg PO Q6H PRN PRN Reason: Agitation Last Admin: 02/25/18 05:18 Dose: 0.5 mg Methylprednisolone Sodium Succinate (Solu-Medrol) 20 mg IVP 0300,0900,1500, 2100 [facility] Last Admin: 02/25/18 08:38 Dose: Not Given Metoprolol Tartrate (Lopressor) 5 mg IVP Q6H PRN PRN Reason: SBP >180 or HR >110 Metoprolol Tartrate (Lopressor) 25 mg PO BID [facility] Last Admin: 02/25/18 08:26 Dose: 25 mg Ondansetron HCl (Zofran) 4 mg IVP Q6H PRN PRN Reason: Nausea/Vomiting Simvastatin (Zocor) 40 mg PO HS [facility] Last Admin: 02/24/18 21:23 Dose: 40 mg
--- NOTE | 2018-02-26 21:50 | DIS ---
SUMMARY DATE OF ADMISSION: 02/20/2018 DATE OF : 02/25/2018 around 04:15 p.m. PRIMARY CAUSE OF : Pneumonia, 6 days. Acute encephalopathy, 6 days. Acute respiratory failure with hypoxia and hypercapnia, 6 days. Acute chronic obstructive pulmonary disease exacerbation, 6 d ays. SECONDARY CAUSES OF : Include diastolic heart failure, hypertension, hepatitis C, history with residual deficit, dementia, AFib. BRIEF COURSE DURING HOSPITALIZATION: The patient initially got admitted 02/20/2018 after she was sen t over from [facility] for altered mental state. The patient also was very lethargic and was in re spiratory failure needing BiPAP. Her initial workup was positive for pneumonia with COPD exacerbatio n and mild CHF exacerbation with diastolic dysfunction where she was admitted to [facility]. She has had c onsultation with Dr. Jc for Pulmonology. The patient was on broad-spectrum antibiotics along with steroids, nebulizations and gentle diuresis. She managed to come off BiPAP. Palliative care consult ation was requested as well in view of multiple medical issues, underlying dementia and poor prognosi s. The patient's daughter made her DNR. She was later transferred to medical floor after she was we aned off BiPAP. The patient has been waxing and waning as far as her lethargy and cognitive function . Around 04:10 p.m., the patient became obtunded and went into a respiratory failure. She was decla red around 04:15 on 02/25/2018. The body will be released to family per hospital protocol. The patient was in fact planned to go into a [facility] when all of a sudden she went into respiratory failure at 04:15 p.m. on the .
== END 2018-02-25 16:20 | disposition expired | DRG 871 ==
LOC: ERS 14:38 → IMCU/EMU 18:30 → ERS 20:17 → T4-A 02-24 15:30
PROVIDERS: ADMIT Internal Medicine; ATTEND Internal Medicine
PROC: 5A09357 Assistance with Respiratory Ventilation, Less than 24 Consecutive Hours, Continuous Positive Airway Pressure (ICD-10-PCS; principal; 2018-02-20)
PROC: 06HM33Z Insertion of Infusion Device into Right Femoral Vein, Percutaneous Approach (ICD-10-PCS; 2018-02-21)
DX: A41.9 Sepsis, unspecified organism (principal); J18.9 Pneumonia, unspecified organism; J96.21 Acute and chronic respiratory failure with hypoxia; J96.22 Acute and chronic respiratory failure with hypercapnia; I50.33 Acute on chronic diastolic (congestive) heart failure; G93.41 Metabolic encephalopathy; J44.1 Chronic obstructive pulmonary disease with (acute) exacerbation; I48.92 Unspecified atrial flutter; Z66 Do not resuscitate; Z51.5 Encounter for palliative care; I11.0 Hypertensive heart disease with heart failure; F03.90 Unspecified dementia, unspecified severity, without behavioral disturbance, psychotic disturbance, mood disturbance, and anxiety; I48.2 Chronic atrial fibrillation; E78.5 Hyperlipidemia, unspecified; B18.2 Chronic viral hepatitis C; G47.33 Obstructive sleep apnea (adult) (pediatric); D53.9 Nutritional anemia, unspecified; Z87.891 Personal history of nicotine dependence; Z79.82 Long term (current) use of aspirin; Z79.899 Other long term (current) drug therapy; Z96.652 Presence of left artificial knee joint
CPT/HCPCS: 36415; 36416; 51702; 70450; 71045; 71260; 80048; 80053; 80202; 81003; 81015; 82140; 82553; 82805; 83605; 83690; 83735; 83880; 84484; 85007; 85025; 85027; 87040; 87086; 90471; 90670; 93005; 94640; 94660; 96365; 96367; 96372; 96375; G0009; G8996-GN-CJ; G8997-GN-CJ; J0456; J0696; J1200; J1650; J1940; J2060; J2920; J3370; J7050; J7506; J7620; S0028